=== PATIENT | female | born 1950 | race Caucasian/White ===

== ENCOUNTER 2017-09-11 19:59 | Emergency (ER) | payer OTHER ==
[2017-09-11] MEDS ORDERED: HYDROCODONE/APAP 5/325 MG TAB ONE (21:31)
--- NOTE | 2017-09-11 21:36 | RAD REPORT ---
EXAM DESCRIPTION: RAD - Foot Left 3 View - 09/11/2017 9:23 pm CLINICAL HISTORY: Pain and swelling. COMPARISON: None. FINDINGS: A large amount of soft tissue swelling is seen along the dorsum of the midfoot. Osteopenia is seen with no evidence of fracture or dislocation. Prominent calcaneal spurs are noted.
--- NOTE | 2017-09-11 21:51 | RAD REPORT ---
EXAM DESCRIPTION: RAD - Tib Fib Left - 09/11/2017 9:37 pm CLINICAL HISTORY: Pain and swelling. COMPARISON: None. FINDINGS: Focal soft tissue swelling is seen involving the inferior aspect of the left lung anterior to the tibia. No subcutaneous gas is seen. No fracture, dislocation or evidence of osteomyelitis. La rge calcaneal spurs are present.
[2017-09-11] MEDS ORDERED: LIDOCAINE 1% MPF 5 ML VIAL ONE (22:51)
[2017-09-11] MEDS ORDERED: CEFTRIAXONE 1000 MG/VIAL ONE (22:51)
--- NOTE | 2017-09-11 22:54 | EDPHYS ---
Physician Documentation [facility] Name: Lizeth Fowler Age: 66 yrs Sex: Female : 1950 Arrival Date: 09/11/2017 Time: 20:04 Bed 11 Private MD: ED Physician Al Shah HPI: 09/11 22:44 This 66 yrs old Unknown Female presents to ER via Wheelchair with complaints of Leg gs Pain. 22:44 The patient presents with cellulitis of the left doan. Description: The affected area gs is moderate sized, erythematous, warm. Onset: The symptoms/episode began/occurred 4 day(s) ago, started with redness tenderness mild swelling, had accident chair fell on leg and foot swelling anterior foot and lower leg with hematoma some bleeding now (mild). Associated signs and symptoms: Pertinent negatives: discharge, fever, shortness of breath. Severity of symptoms: At their worst the symptoms were moderate, in the emergency department the symptoms are unchanged. Historical: - Allergies: 20:23 No Known Allergies; fc - Home Meds: 20:41 Levemir subcutaneous subcutaneous 10 units every morning [Active]; aspirin 81 mg Oral aj1 chew 1 tab once daily [Active]; atorvastatin 40 mg oral tab 1 tab once daily [Active]; spironolactone 25 mg Oral tab 1 tab once daily [Active]; allopurinol 100 mg Oral tab 1 tab once daily [Active]; carvedilol 3.125 mg oral tab 1 tab 2 times per day [Active]; Eliquis 5 mg oral tab 1 tab 2 times per day [Active]; Isosorbide Mononitrate 15 mg Oral 0.5 tab 2 times per day [Active]; lisinopril 5 mg Oral tab 1 tab once daily [Active]; torsemide 20 mg oral tab 1 tab once daily [Active]; potassium chloride 10 mEq Oral cpER 1 cap once daily [Active]; - PMHx: 20:23 Diabetes - IDDM; Hypertension; Chronic pain; High Cholesterol; CHF; CAD; Gout; fc Arthritis; - PSHx: 20:23 pacemaker defib; Tonsillectomy; Adenoids; ; fc - Immunization history:: Last tetanus immunization: unknown. - Social history:: Smoking status: Patient/guardian denies using tobacco. ROS: 22:44 All other systems are negative. gs Exam: 22:44 ENT: Nares patent. No nasal discharge, no septal abnormalities noted. Tympanic gs membranes are normal and external auditory canals are clear. Oropharynx with no redness, swelling, or masses, exudates, or evidence of obstruction, uvula midline. Mucous membranes moist. Cardiovascular: Regular rate and rhythm with a normal S1 and S2. No gallops, murmurs, or rubs. Normal PMI, no JVD. No pulse deficits. Respiratory: Lungs have equal breath sounds bilaterally, clear to auscultation and percussion. No rales, rhonchi or wheezes noted. No increased work of breathing, no retractions or nasal flaring. Abdomen/GI: Soft, non-tender, with normal bowel sounds. No distension or tympany. No guarding or rebound. No evidence of tenderness throughout. Back: No spinal tenderness. No costovertebral tenderness. Full range of motion. Neuro: Awake and alert, GCS 15, oriented to person, place, time, and situation. Cranial nerves II-XII grossly intact. Motor strength 5/5 in all extremities. Sensory grossly intact. Cerebellar exam normal. Normal gait. 22:44 Constitutional: The patient appears alert, awake. 22:44 Musculoskeletal/extremity: Extremities: noted in the dorsum of left foot: swelling, no erythema, ROM: no acute changes, Circulation is intact in all extremities. the left doan 22:44 Skin: cellulitis, that is moderate, well demarcated, on the left doan, injury, hematoma anterior lower some skin breakdown and bloody drainage. Vital Signs: 20:18 BP 111 / 60; Pulse 88; Resp 18; Temp 98.4(O); Pulse Ox 95% on R/A; Weight 95.25 kg (R); fc Height 5 ft. 2 in. (157.48 cm) (R); Pain 10/10; 23:34 BP 111 / 49; Pulse 76; Resp 20 S; Temp 98.2(O); Pulse Ox 98% on R/A; Pain 5/10; bb 20:18 Body Mass Index 38.41 (95.25 kg, 157.48 cm) MDM: 20:56 Patient medically screened. 22:44 Differential diagnosis: cellulitis, fracture, hematoma. Data reviewed: vital signs, nurses notes. 09/11 20:58 Order name: Tib Fib Left XRAY; Complete Time: 22:15 09/11 20:58 Order name: Foot Left 3 View XRAY; Complete Time: 22:15 Administered Medications: 21:40 Drug: [place] 5 mg-325 mg 1 tabs Route: PO; aj1 23:34 Follow up: Response: Pain is decreased 23:10 Drug: Rocephin (cefTRIAXone) 1 grams Route: IM; Site: right gluteus; 23:34 Follow up: Response: No adverse reaction bb Disposition: 09/11/17 22:53 Discharged to Home. Impression: Cellulitis of left lower limb. - Condition is Stable. - Discharge Instructions: Cellulitis. - Prescriptions for Keflex 500 mg Oral Capsule - take 2 capsule by ORAL route every 12 hours for 7 days; 28 capsule. Tylenol- Codeine #4 300-60 mg Oral Tablet - take 1 tablet by ORAL route every 6 hours As needed; 10 tablet. - Medication Reconciliation Form, Thank You Letter, Antibiotic Education, Prescription Opioid Use form. - Follow up: Private Physician; When: 1 - 2 days; Reason: Re-evaluation by your physician. Signatures: Dispatcher [employer] Jolly Luis RN RN aj1 Giselle Huang RN RN fc Carri Burden RN RN Al Cody MD MD
--- NOTE | 2017-09-11 22:54 | ER ---
Nurse's Notes [facility] Name: Lizeth Fowler Age: 66 yrs Sex: Female : 1950 Arrival Date: 09/11/2017 Time: 20:04 Bed 11 Private MD: Diagnosis: Cellulitis of left lower limb Presentation: 09/11 20:16 Presenting complaint: Patient states: that ast she hit her left leg hit a chair. Not is has an open area and is draining fluid and blood. Transition of care: patient was not received from another setting of care. Onset of symptoms was September 06, 2017. Care prior to arrival: Bleeding of injury controlled. Injury dressed. 20:16 Method Of Arrival: Wheelchair 20:16 Acuity: DREW 3 fc Historical: - Allergies: 20:23 No Known Allergies; fc - Home Meds: 20:41 Levemir subcutaneous subcutaneous 10 units every morning [Active]; aspirin 81 mg Oral aj1 chew 1 tab once daily [Active]; atorvastatin 40 mg oral tab 1 tab once daily [Active]; spironolactone 25 mg Oral tab 1 tab once daily [Active]; allopurinol 100 mg Oral tab 1 tab once daily [Active]; carvedilol 3.125 mg oral tab 1 tab 2 times per day [Active]; Eliquis 5 mg oral tab 1 tab 2 times per day [Active]; Isosorbide Mononitrate 15 mg Oral 0.5 tab 2 times per day [Active]; lisinopril 5 mg Oral tab 1 tab once daily [Active]; torsemide 20 mg oral tab 1 tab once daily [Active]; potassium chloride 10 mEq Oral cpER 1 cap once daily [Active]; - PMHx: 20:23 Diabetes - IDDM; Hypertension; Chronic pain; High Cholesterol; CHF; CAD; Gout; fc Arthritis; - PSHx: 20:23 pacemaker defib; Tonsillectomy; Adenoids; ; fc - Immunization history:: Last tetanus immunization: unknown. - Social history:: Smoking status: Patient/guardian denies using tobacco. Screenin:01 Abuse screen: Denies threats or abuse. Denies injuries from another. Nutritional aj1 screening: No deficits noted. Tuberculosis screening: No symptoms or risk factors identified. 23:35 Fall Risk None identified. bb Assessment: 21:01 General: Appears in no apparent distress. uncomfortable, Behavior is calm, cooperative, aj1 appropriate for age. Pain: Complains of pain in left doan Pain does not radiate. Pain currently is 10 out of 10 on a pain scale. Quality of pain is described as sharp. Neuro: Level of Consciousness is awake, alert, obeys commands, Oriented to person, place, time, situation, Speech is normal, Facial symmetry appears normal. Cardiovascular: Patient's skin is warm and dry. Respiratory: Airway is patent Respiratory effort is even, unlabored, Respiratory pattern is regular, symmetrical. GI: No signs and/or symptoms were reported involving the gastrointestinal system. : No signs and/or symptoms were reported regarding the genitourinary system. EENT: No signs and/or symptoms were reported regarding the EENT system. Derm: right lower leg, ankle and foot are red hot and swollen. Wound noted to right doan, bleeding lightly. Musculoskeletal: Range of motion: limited in right ankle. 21:44 Reassessment: Patient appears in no apparent distress at this time. No changes from aj1 previously documented assessment. Patient and/or family updated on plan of care and expected duration. Pain level reassessed. Patient is alert, oriented x 3, equal unlabored respirations, skin warm/dry/pink. 22:05 Reassessment: Patient appears in no apparent distress at this time. No changes from aj1 previously documented assessment. Patient and/or family updated on plan of care and expected duration. Pain level reassessed. Patient is alert, oriented x 3, equal unlabored respirations, skin warm/dry/pink. 23:33 Reassessment: Patient is alert, oriented x 3, equal unlabored respirations, skin bb warm/dry/pink. pt states pain has improved now 5/10 verbalized understanding of and agrees to plan of care discharge instructions given, pt assisted to exit via wheelchair accompanied by family. Vital Signs: 20:18 BP 111 / 60; Pulse 88; Resp 18; Temp 98.4(O); Pulse Ox 95% on R/A; Weight 95.25 kg (R); fc Height 5 ft. 2 in. (157.48 cm) (R); Pain 10/10; 23:34 BP 111 / 49; Pulse 76; Resp 20 S; Temp 98.2(O); Pulse Ox 98% on R/A; Pain 5/10; bb 20:18 Body Mass Index 38.41 (95.25 kg, 157.48 cm) ED Course: 20:04 Patient arrived in ED. ds1 20:18 Triage completed. 20:18 Arm band placed on Patient placed in an exam room, on a stretcher. 20:28 Jolly Sharif, RN is Primary Nurse. aj1 20:49 Al Shah MD is Attending Physician. 21:01 Patient has correct armband on for positive identification. Call light in reach. aj1 21:01 No provider procedures requiring assistance completed. aj1 21:18 Tib Fib Left XRAY In Process Unspecified. EDMS 21:18 Foot Left 3 View XRAY In Process Unspecified. EDMS 21:27 X-ray completed. Portable x-ray completed in exam room. Patient tolerated procedure bb2 well. 23:35 Patient did not have IV access during this emergency room visit. bb Administered Medications: 21:40 Drug: [place] 5 mg-325 mg 1 tabs Route: PO; aj 23:34 Follow up: Response: Pain is decreased bb 23:10 Drug: Rocephin (cefTRIAXone) 1 grams Route: IM; Site: right gluteus; bb 23:34 Follow up: Response: No adverse reaction bb Outcome: 22:53 Discharge ordered by . 23:35 Discharged to home via wheelchair, with family. bb 23:35 Condition: stable 23:35 Discharge instructions given to patient, Instructed on discharge instructions, follow up and referral plans. medication usage, Demonstrated understanding of instructions, follow-up care, medications, Prescriptions given X 2. 23:35 Patient left the ED. bb Signatures: Dispatcher [employer] EDMS Jolly Sharif, RN ANA aj1 Giselle Huang RN RN Jimena Chandler ds1 aCrri Burden RN RN bb Al Shah MD MD Catherine Hewitt bb2
== END 2017-09-11 23:35 | disposition home or self-care (01) ==
LOC: ER 19:59
DX: L03.116 Cellulitis of left lower limb (principal); E11.9 Type 2 diabetes mellitus without complications; I10 Essential (primary) hypertension; M19.90 Unspecified osteoarthritis, unspecified site; E78.5 Hyperlipidemia, unspecified; I50.9 Heart failure, unspecified; I25.10 Atherosclerotic heart disease of native coronary artery without angina pectoris
CPT/HCPCS: 96372; 99283

== ENCOUNTER 2019-01-10 13:06 | Inpatient (IN) | payer OTHER ==
--- OUTSIDE RECORDS SUMMARY | 2019-01-10 13:09 | XMS REPORT ---
:1950 Author Organization [employer] Care Team Providers Name Role Phone Irwin Celso Provider Role Unavailable Allergies No Known Allergies Problems No Known Problems Medications Medication Code System Code Instructions Start Date End Date Status Dosage Eliquis [facility] 2001 79840846365 5 mg orally twice Jul 25, Active 1 tab(s) daily 2018 Results No Known Results Summary Purpose [employer] Submission
--- OUTSIDE RECORDS SUMMARY | 2019-01-10 13:09 | XMS REPORT | Continuity of Care Document ---
:1950 Author Organization [employer] Care Team Providers Name Role Phone [employer] Unavailable Unavailable Problems Problem Status Onset Classification Date Comments Source Date Reported Presence of Active Problem 01/22/2018 eCW: Heart automatic [facility] defibrillator Chronic systolic Active Diagnosis 01/22/2018 eCW: Heart heart failure [facility] Medications Medication Details Route Status Patient Ordering Order Source Instructions Provider Date Eliquis 1 tab(s) orally Active 5 mg orally [place] eCW: Heart twice daily 2017 [facility] allopurinol 1 tab(s) orally Active 100 mg orally 2 an eCW: Heart times a day [facility] carvedilol 1 tab(s) orally Active 3.125 mg orally an eCW: Heart 2 times a day [facility] Vitamin B-12 1 tab(s) orally Active 100 mcg orally eCW: Heart once a day [facility] aspirin 1 tab(s) orally Active 81 mg orally eCW: Heart once a day [facility] isosorbide 1 tab(s) orally Active 10 mg orally 2 an eCW: Heart mononitrate times a day [facility] lisinopril 1 tab(s) orally Active 5 mg orally an eCW: Heart once a day [facility] Prolia not subcutaneousl Active 60 mg/mL eCW: Heart defined y subcutaneously [facility] Klor-Con 1 tab(s) orally Active 10 mEq orally 2 eCW: Heart times a day [facility] Eliquis 1 tab(s) orally Active 5 orally twice an eCW: Heart daily [facility] atorvastatin 1 tab(s) orally Active 40 mg orally an eCW: Heart once a day [facility] spironolactone 1 tab(s) orally Active 25 mg orally 2 kian eCW: Heart times a day [facility] Allergies, Adverse Reactions, Alerts Substance Category Reaction Severity Reaction Status Date Comments Source type Reported N.K.D.A. Adverse Info Not Adverse Active eCW: Heart Reaction Available Reaction 8 [facility] Immunizations No Data Provided for This Section Results No Data Provided for This Section Pathology Reports No Data Provided for This Section Diagnostic Reports No Data Provided for This Section Consultation Notes No Data Provided for This Section Discharge Summaries No Data Provided for This Section History and Physicals No Data Provided for This Section Vital Signs No Data Provided for This Section Encounters No Data Provided for This Section Procedures No Data Provided for This Section Assessment and Plan No Data Provided for This Section Plan of Care No Data Provided for This Section Social History No Data Provided for This Section Family History No Data Provided for This Section Advance Directives No Data Provided for This Section Functional Status No Data Provided for This Section
--- OUTSIDE RECORDS SUMMARY | 2019-01-10 13:09 | XMS REPORT ---
:1950 Author Organization [employer] Care Team Providers Name Role Phone Tonyazitasd Celso Provider Role Unavailable Allergies, Adverse Reactions, Alerts Substance Reaction Event Type N.K.D.A. Info Not Available Non Drug Allergy Problems Problem Type Condition Code Onset Dates Condition Status Problem Presence of automatic (implantable) Z95.810 Active cardiac defibrillator Assessment Chronic systolic (congestive) heart I50.22 Active failure Problem Chronic systolic (congestive) heart I50.22 Active failure Assessment Presence of automatic (implantable) Z95.810 Active cardiac defibrillator Medications Medication Code Code Instructions Start End Status Dosage System Date Date allopurinol [facility] 60812515781 100 mg orally 2 Active 1 tab(s) times a day carvedilol [facility] 72421742177 3.125 mg orally 2 Active 1 tab(s) times a day Vitamin B-12 [facility] 25505057619 100 mcg orally Active 1 tab(s) once a day Eliquis [facility] 21742829528 5 mg orally twice Jul 25, Active 1 tab(s) daily 2017 aspirin [facility] 92085419348 81 mg orally once Active 1 tab(s) a day isosorbide [facility] 64913958640 10 mg orally 2 Active 1 tab(s) mononitrate times a day lisinopril [facility] 25988380173 5 mg orally once Active 1 tab(s) a day Prolia [facility] 47638250507 60 mg/mL Active not subcutaneously defined every 6 months Klor-Con [facility] 41212991242 10 mEq orally 2 Active 1 tab(s) times a day Eliquis [facility] 75642583070 5 orally twice Active 1 tab(s) daily atorvastatin [facility] 03901232622 40 mg orally once Active 1 tab(s) a day spironolactone [facility] 57798110827 25 mg orally 2 Active 1 tab(s) times a day Results No Known Results Summary Purpose [employer]ClinicalWorks Submission
--- OUTSIDE RECORDS SUMMARY | 2019-01-10 13:11 | XMS REPORT ---
:1950 Author Organization [facility] Address [address] [place] [address] Care Team Providers Name Role Phone TRENTON RODAS Primary Care Provider Unavailable TIP WASHINGTON Unavailable Unavailable Problems This patient has no known problems. Allergies, Adverse Reactions, Alerts This patient has no known allergies or adverse reactions. Medications This patient has no known medications. Encounters Start End Encounter Admission Attending Care Care Encounter Date/Time Date/Time Type Type Clinicians Facility Department ID 2017-09-18 Inpatient E [facility] [id number] 12:45:00 Results Test Description Test Time Test Comments Text Results Atomic Results Result Comments Culture, Wound Nonsurgical 2017-10-06 07:47:00 Specimen: LegCollected: 08:30 Status: Final Last Updated: 10/06/2017 07:47 (1) left leg wound at wound vac dressing change. Gram Stain (Final) (Final) 10/02/17 No organsims seen, No WBC's seen Culture Result (Final) (Final) 10/02/17 No growth 24 hours 10/03/17 No growth 48 hours 10/04/17 No growth 3 days 10/05/17 No growth 4 days 10/06/17 No growth 5 days 10/06/17 Anaerobic culture:No anaerobes isolated at 5 days Basic Metabolic Panel 2017-10-03 07:56:32 Test Item Value Reference Range Comments Sodium Level (test code=Sodium Level) 137.0 mmol/L 135.0-145.0 Potassium Level (test code=Potassium Level) 4.8 mmol/L 3.5-5.1 Chloride Level (test code=Chloride Level) 98 mmol/L 98-105 CO2 (test code=CO2) 31 mmol/L 22-29 Anion Gap (test code=Anion Gap) 8 mmol/L 7-16 BUN (test code=BUN) 46.50 mg/dL 8.00-23.00 Creatinine Level (test code=Creatinine Level) 1.50 mg/dL 0.50-0.90 BUN/Creat Ratio (test code=BUN/Creat Ratio) 31 Glucose Level (test code=Glucose Level) 152 mg/dL 70-115 Calcium Level (test code=Calcium Level) 8.3 mg/dL 8.3-10.5 Basic Metabolic [id number] 07:56:32 Test Item Value Reference Range Comments Sodium Level (test 137.0 mmol/L 135.0-145.0 code=Sodium Level) Potassium Level (test 4.8 mmol/L 3.5-5.1 code=Potassium Level) Chloride Level (test 98 mmol/L 98-105 code=Chloride Level) CO2 (test code=CO2) 31 mmol/L 22-29 Anion Gap (test 8 mmol/L 7-16 code=Anion Gap) BUN (test code=BUN) 46.50 mg/dL 8.00-23.00 Creatinine Level (test 1.50 mg/dL 0.50-0.90 code=Creatinine Level) BUN/Creat Ratio (test 31 code=BUN/Creat Ratio) Glucose Level (test 152 mg/dL 70-115 code=Glucose Level) Calcium Level (test 8.3 mg/dL 8.3-10.5 code=Calcium Level) eGFR AA (test code=eGFR 42 mL/min/1.73 m2 eGFR (estimated AA) Glomerular Filtration Rate) is an estimated value, calculated from the patient's serum creatinine using the MDRD equation. It is NOT the patient's actual GFR. The eGFR provides a more clinically useful measure of kidney disease than serum creatinine alone.This calculation takes sex and race into account, if the information is provided. If the race is not provided, and the patient is -[place], multiply by 1.212. If sex is not provided, and the patient is female, multiply by 0.742. Results for patients <18 years of age have not been validated by the MDRD study and should be interpreted with caution. eGFR Result Interpretation:eGFR > or=60 is in the Normal RangeeGFR < 60 may mean kidney diseaseeGFR < 15 may mean kidney failure Ranges recommended by the National Kidney Foundation, http://nkdep.nih.gov eGFR Non-AA (test 34.64 mL/min/1.73 eGFR (estimated code=eGFR Non-AA) m2 Glomerular Filtration Rate) is an estimated value, calculated from the patient's serum creatinine using the MDRD equation. It is NOT the patient's actual GFR. The eGFR provides a more clinically useful measure of kidney disease than serum creatinine alone.This calculation takes sex and race into account, if the information is provided. If the race is not provided, and the patient is -[place], multiply by 1.212. If sex is not provided, and the patient is female, multiply by 0.742. Results for patients <18 years of age have not been validated by the MDRD study and should be interpreted with caution. eGFR Result Interpretation:eGFR > or=60 is in the Normal RangeeGFR < 60 may mean kidney diseaseeGFR < 15 may mean kidney failure Ranges recommended by the National Kidney Foundation, http://nkdep.nih.gov Basic Metabolic [id number] 07:56:32 Test Item Value Reference Range Comments Sodium Level (test 137.0 mmol/L 135.0-145.0 code=Sodium Level) Potassium Level (test 4.8 mmol/L 3.5-5.1 code=Potassium Level) Chloride Level (test 98 mmol/L 98-105 code=Chloride Level) CO2 (test code=CO2) 31 mmol/L 22-29 Anion Gap (test 8 mmol/L 7-16 code=Anion Gap) BUN (test code=BUN) 46.50 mg/dL 8.00-23.00 Creatinine Level (test 1.50 mg/dL 0.50-0.90 code=Creatinine Level) BUN/Creat Ratio (test 31 code=BUN/Creat Ratio) Glucose Level (test 152 mg/dL 70-115 code=Glucose Level) Calcium Level (test 8.3 mg/dL 8.3-10.5 code=Calcium Level) eGFR AA (test code=eGFR 42 mL/min/1.73 m2 eGFR (estimated AA) Glomerular Filtration Rate) is an estimated value, calculated from the patient's serum creatinine using the MDRD equation. It is NOT the patient's actual GFR. The eGFR provides a more clinically useful measure of kidney disease than serum creatinine alone.This calculation takes sex and race into account, if the information is provided. If the race is not provided, and the patient is -[place], multiply by 1.212. If sex is not provided, and the patient is female, multiply by 0.742. Results for patients <18 years of age have not been validated by the MDRD study and should be interpreted with caution. eGFR Result Interpretation:eGFR > or=60 is in the Normal RangeeGFR < 60 may mean kidney diseaseeGFR < 15 may mean kidney failure Ranges recommended by the National Kidney Foundation, http://nkdep.nih.gov eGFR Non-AA (test 34.64 mL/min/1.73 eGFR (estimated code=eGFR Non-AA) m2 Glomerular Filtration Rate) is an estimated value, calculated from the patient's serum creatinine using the MDRD equation. It is NOT the patient's actual GFR. The eGFR provides a more clinically useful measure of kidney disease than serum creatinine alone.This calculation takes sex and race into account, if the information is provided. If the race is not provided, and the patient is -[place], multiply by 1.212. If sex is not provided, and the patient is female, multiply by 0.742. Results for patients <18 years of age have not been validated by the MDRD study and should be interpreted with caution. eGFR Result Interpretation:eGFR > or=60 is in the Normal RangeeGFR < 60 may mean kidney diseaseeGFR < 15 may mean kidney failure Ranges recommended by the National Kidney Foundation, http://nkdep.nih.gov Basic Metabolic [id number] 16:45:00 Test Item Value Reference Range Comments Sodium Level (test 140.0 mmol/L 135.0-145.0 code=Sodium Level) Potassium Level (test 5.2 mmol/L 3.5-5.1 code=Potassium Level) Chloride Level (test 100 mmol/L 98-105 code=Chloride Level) CO2 (test code=CO2) 29 mmol/L 22-29 Anion Gap (test 11 mmol/L 7-16 code=Anion Gap) BUN (test code=BUN) 46.90 mg/dL 8.00-23.00 Creatinine Level (test 1.50 mg/dL 0.50-0.90 code=Creatinine Level) BUN/Creat Ratio (test 31 code=BUN/Creat Ratio) Glucose Level (test 171 mg/dL 70-115 code=Glucose Level) Calcium Level (test 8.4 mg/dL 8.3-10.5 code=Calcium Level) eGFR AA (test code=eGFR 42 mL/min/1.73 m2 eGFR (estimated AA) Glomerular Filtration Rate) is an estimated value, calculated from the patient's serum creatinine using the MDRD equation. It is NOT the patient's actual GFR. The eGFR provides a more clinically useful measure of kidney disease than serum creatinine alone.This calculation takes sex and race into account, if the information is provided. If the race is not provided, and the patient is -[place], multiply by 1.212. If sex is not provided, and the patient is female, multiply by 0.742. Results for patients <18 years of age have not been validated by the MDRD study and should be interpreted with caution. eGFR Result Interpretation:eGFR > or=60 is in the Normal RangeeGFR < 60 may mean kidney diseaseeGFR < 15 may mean kidney failure Ranges recommended by the National Kidney Foundation, http://nkdep.nih.gov eGFR Non-AA (test 34.64 mL/min/1.73 eGFR (estimated code=eGFR Non-AA) m2 Glomerular Filtration Rate) is an estimated value, calculated from the patient's serum creatinine using the MDRD equation. It is NOT the patient's actual GFR. The eGFR provides a more clinically useful measure of kidney disease than serum creatinine alone.This calculation takes sex and race into account, if the information is provided. If the race is not provided, and the patient is -[place], multiply by 1.212. If sex is not provided, and the patient is female, multiply by 0.742. Results for patients <18 years of age have not been validated by the MDRD study and should be interpreted with caution. eGFR Result Interpretation:eGFR > or=60 is in the Normal RangeeGFR < 60 may mean kidney diseaseeGFR < 15 may mean kidney failure Ranges recommended by the National Kidney Foundation, http://nkdep.nih.gov Basic Metabolic [id number] 16:45:00 Test Item Value Reference Range Comments Sodium Level (test 140.0 mmol/L 135.0-145.0 code=Sodium Level) Potassium Level (test 5.2 mmol/L 3.5-5.1 code=Potassium Level) Chloride Level (test 100 mmol/L 98-105 code=Chloride Level) CO2 (test code=CO2) 29 mmol/L 22-29 Anion Gap (test 11 mmol/L 7-16 code=Anion Gap) BUN (test code=BUN) 46.90 mg/dL 8.00-23.00 Creatinine Level (test 1.50 mg/dL 0.50-0.90 code=Creatinine Level) BUN/Creat Ratio (test 31 code=BUN/Creat Ratio) Glucose Level (test 171 mg/dL 70-115 code=Glucose Level) Calcium Level (test 8.4 mg/dL 8.3-10.5 code=Calcium Level) eGFR AA (test code=eGFR 42 mL/min/1.73 m2 eGFR (estimated AA) Glomerular Filtration Rate) is an estimated value, calculated from the patient's serum creatinine using the MDRD equation. It is NOT the patient's actual GFR. The eGFR provides a more clinically useful measure of kidney disease than serum creatinine alone.This calculation takes sex and race into account, if the information is provided. If the race is not provided, and the patient is -[place], multiply by 1.212. If sex is not provided, and the patient is female, multiply by 0.742. Results for patients <18 years of age have not been validated by the MDRD study and should be interpreted with caution. eGFR Result Interpretation:eGFR > or=60 is in the Normal RangeeGFR < 60 may mean kidney diseaseeGFR < 15 may mean kidney failure Ranges recommended by the National Kidney Foundation, http://nkdep.nih.gov eGFR Non-AA (test 34.64 mL/min/1.73 eGFR (estimated code=eGFR Non-AA) m2 Glomerular Filtration Rate) is an estimated value, calculated from the patient's serum creatinine using the MDRD equation. It is NOT the patient's actual GFR. The eGFR provides a more clinically useful measure of kidney disease than serum creatinine alone.This calculation takes sex and race into account, if the information is provided. If the race is not provided, and the patient is -[place], multiply by 1.212. If sex is not provided, and the patient is female, multiply by 0.742. Results for patients <18 years of age have not been validated by the MDRD study and should be interpreted with caution. eGFR Result Interpretation:eGFR > or=60 is in the Normal RangeeGFR < 60 may mean kidney diseaseeGFR < 15 may mean kidney failure Ranges recommended by the National Kidney Foundation, http://nkdep.nih.gov Basic Metabolic [id number] 16:45:00 Test Item Value Reference Range Comments Sodium Level (test 140.0 mmol/L 135.0-145.0 code=Sodium Level) Potassium Level (test 5.2 mmol/L 3.5-5.1 code=Potassium Level) Chloride Level (test 100 mmol/L 98-105 code=Chloride Level) CO2 (test code=CO2) 29 mmol/L 22-29 Anion Gap (test 11 mmol/L 7-16 code=Anion Gap) BUN (test code=BUN) 46.90 mg/dL 8.00-23.00 Creatinine Level (test 1.50 mg/dL 0.50-0.90 code=Creatinine Level) BUN/Creat Ratio (test 31 code=BUN/Creat Ratio) Glucose Level (test 171 mg/dL 70-115 code=Glucose Level) Calcium Level (test 8.4 mg/dL 8.3-10.5 code=Calcium Level) eGFR AA (test code=eGFR 42 mL/min/1.73 m2 eGFR (estimated AA) Glomerular Filtration Rate) is an estimated value, calculated from the patient's serum creatinine using the MDRD equation. It is NOT the patient's actual GFR. The eGFR provides a more clinically useful measure of kidney disease than serum creatinine alone.This calculation takes sex and race into account, if the information is provided. If the race is not provided, and the patient is -[place], multiply by 1.212. If sex is not provided, and the patient is female, multiply by 0.742. Results for patients <18 years of age have not been validated by the MDRD study and should be interpreted with caution. eGFR Result Interpretation:eGFR > or=60 is in the Normal RangeeGFR < 60 may mean kidney diseaseeGFR < 15 may mean kidney failure Ranges recommended by the National Kidney Foundation, http://nkdep.nih.gov eGFR Non-AA (test 34.64 mL/min/1.73 eGFR (estimated code=eGFR Non-AA) m2 Glomerular Filtration Rate) is an estimated value, calculated from the patient's serum creatinine using the MDRD equation. It is NOT the patient's actual GFR. The eGFR provides a more clinically useful measure of kidney disease than serum creatinine alone.This calculation takes sex and race into account, if the information is provided. If the race is not provided, and the patient is -[place], multiply by 1.212. If sex is not provided, and the patient is female, multiply by 0.742. Results for patients <18 years of age have not been validated by the MDRD study and should be interpreted with caution. eGFR Result Interpretation:eGFR > or=60 is in the Normal RangeeGFR < 60 may mean kidney diseaseeGFR < 15 may mean kidney failure Ranges recommended by the National Kidney Foundation, http://nkdep.nih.gov Pro B Natriuretic [id number] 16:45:00 Test Item Value Reference Range Comments NT-proBNP (test code=NT-proBNP) 5192 pg/mL 0-124 Vancomycin, [id number] 20:54:00 Test Item Value Reference Range Comments Teodoro Gutierrez (test code=VANTR) 11.1 ug/mL 10.0-20.0 POC Glucose, [id number] 17:38:00 Test Item Value Reference Range Comments POC Glucose (test 177 mg/dL 70-115 If you consider your patient code=POCGLUC) critically ill, the Elisa Accu-Chek InformII metershould not be used for Glucose determinations.Draw a venous Glucose and send to the Main Lab for Analysis. POC Glucose, [id number] 11:33:00 Test Item Value Reference Range Comments POC Glucose (test 187 mg/dL 70-115 If you consider your patient code=POCGLUC) critically ill, the Elisa Accu-Chek InformII metershould not be used for Glucose determinations.Draw a venous Glucose and send to the Main Lab for Analysis. POC Glucose, [id number] 07:24:00 Test Item Value Reference Range Comments POC Glucose (test 116 mg/dL 70-115 If you consider your patient code=POCGLUC) critically ill, the Elisa Accu-Chek InformII metershould not be used for Glucose determinations.Draw a venous Glucose and send to the Main Lab for Analysis. POC Glucose, [id number] 20:48:00 Test Item Value Reference Range Comments POC Glucose (test 167 mg/dL 70-115 Notify RN or MDIf you consider code=POCGLUC) your patient critically ill, the Elisa Accu-Chek InformII metershould not be used for Glucose determinations.Draw a venous Glucose and send to the Main Lab for Analysis. POC Glucose, [id number] 17:09:00 Test Item Value Reference Range Comments POC Glucose (test 112 mg/dL 70-115 Notify RN or MDIf you consider code=POCGLUC) your patient critically ill, the Elisa Accu-Chek InformII metershould not be used for Glucose determinations.Draw a venous Glucose and send to the Main Lab for Analysis. POC Glucose, [id number] 11:12:00 Test Item Value Reference Range Comments POC Glucose (test 135 mg/dL 70-115 If you consider your patient code=POCGLUC) critically ill, the Elisa Accu-Chek InformII metershould not be used for Glucose determinations.Draw a venous Glucose and send to the Main Lab for Analysis. Comprehensive Metabolic [id number] 07:43:00 Test Item Value Reference Range Comments Sodium (test code=NA) 136 mmol/L 135-145 Potassium (test code=K) 5.6 mmol/L 3.5-5.1 Chloride (test code=CL) 97 mmol/L 98-105 Carbon Dioxide (test 29 mmol/L 22-29 code=CO2) Glucose (test code=GLU) 112 mg/dL 70-115 Blood Urea Nitrogen (test 38 mg/dL 8-23 code=BUN) Creatinine (test 1.1 mg/dL 0.5-0.9 code=CREAT) Calcium (test code=CA) 8.6 mg/dL 8.3-10.5 Prot Total (test code=TP) 6.3 g/dL 6.4-8.3 Albumin (test code=ALB) 3.6 g/dL 3.5-5.2 A/G Ratio (test 1.3 Ratio code=AGRATIO) Globulin (test code=GLOB) 2.7 2.9-3.1 Bili Total (test 0.7 mg/dL 0.1-0.9 code=TBIL) Alk Phos (test 46 U/L 35-104 code=APHOS) AST (test code=AST) 14 U/L 1-32 ALT (test code=ALT) 11 U/L 1-33 BUN/Creatinine Ratio 34.5 (test code=BCRATIO) Anion Gap (test 10 mmol/L 7-16 code=AGAP) Estimated GFR (test 53 mL/min/1.73m2 eGFR (estimated Glomerular code=GFR) Filtration Rate) is an estimated value,calculated from the patient's serum creatinine using the MDRD equation.It is NOT the patient's actual GFR. The eGFR provides a more clinicallyuseful measure of kidney disease than serum creatinine alone.This calculation takes sex and race into account, if the informationis provided. If the race is not provided, and the patient isAfrican-[place], multiply by 1.212. If sex is not provided, and thepatient is female, multiply by 0.742. Results for patients <18 years ofage have not been validated by the MDRD study and should be interpretedwith caution.eGFR Result Interpretation:eGFR > or=60 is in the Normal RangeeGFR < 60 may mean kidney diseaseeGFR < 15 may mean kidney failureRanges recommended by the National Kidney Foundation,http://nkdep.nih .gov CBC with [id number] 07:30:00 Test Item Value Reference Range Comments WBC (test code=WBC) 8.5 K/cumm 4.4-10.5 RBC (test code=RBC) 4.20 M/cumm 3.75-5.20 Hemoglobin (test code=HGB) 12.2 gm/dL 12.2-14.8 Hematocrit (test code=HCT) 41.0 % 36.5-44.4 MCV (test code=MCV) 97.4 fL 80-100 MCH (test code=MCH) 29.1 pg 27.0-32.5 MCHC (test code=MCHC) 29.9 g/dL 32.0-37.5 RDW (test code=RDW) 15.6 % 11.5-14.5 Platelet Count (test code=PLTCT) 194 K/cumm 140-440 MPV (test code=MPV) 11.4 fL Diff Method (test code=DIFFM) Auto Neutrophil (test code=NEUT) 79.2 % 36-70 Lymphocyte (test code=LYMPH) 10.0 % 12-44 Monocyte (test code=MONO) 8.7 % 0-11 Eosinophil (test code=EOS) 1.6 % 0-7 Basophil (test code=BASO) 0.5 % 0-2 Neutro Abs (test code=ANEUT) 6.7 K/cumm 1.6-7.4 Lymph Abs (test code=ALYMPH) 0.9 K/cumm 0.5-4.6 [place] Abs (test code=AMONO) 0.7 K/cumm 0.0-1.2 Eos Abs (test code=AEOS) 0.14 K/cumm 0.00-0.74 Baso Abs (test code=ABASO) 0.0 K/cumm 0.00-0.21 Hypochromic (test code=HYPO) Slight POC Glucose, [id number] 07:07:00 Test Item Value Reference Range Comments POC Glucose (test 101 mg/dL 70-115 Notify RN or MDIf you consider code=POCGLUC) your patient critically ill, the Elisa Accu-Chek InformII metershould not be used for Glucose determinations.Draw a venous Glucose and send to the Main Lab for Analysis. POC Glucose, [id number] 20:58:00 Test Item Value Reference Range Comments POC Glucose (test 161 mg/dL 70-115 Notify RN or MDIf you consider code=POCGLUC) your patient critically ill, the Elisa Accu-Chek InformII metershould not be used for Glucose determinations.Draw a venous Glucose and send to the Main Lab for Analysis. XR CHEST 1 [id number] 18:34:58LOCATION: [id number] 1 VIEWINDICATION: CHFCOMPARISON: Chest radiograph from 09/27/2017FINDINGS:Moderate cardiomegaly is redemonstrated. Triple lead AICD seen. There ismoderate central pulmonary vascular congestion. Moderate left and smallright pleural effusions with bibasilar atelectasis or infiltratepersist. Right arm PICC tip is in the distal SVC.IMPRESSION:1. Cardiomegaly with moderate central vascular congestion.2. Bilateral pleural effusions, left greater than right persists.POC Glucose, [id number] 17:30:00 Test Item Value Reference Range Comments POC Glucose (test 109 mg/dL 70-115 Notify RN or MDIf you consider code=POCGLUC) your patient critically ill, the Elisa Accu-Chek InformII metershould not be used for Glucose determinations.Draw a venous Glucose and send to the Main Lab for Analysis. POC Glucose, [id number] 11:19:00 Test Item Value Reference Range Comments POC Glucose (test 193 mg/dL 70-115 If you consider your patient code=POCGLUC) critically ill, the Elisa Accu-Chek InformII metershould not be used for Glucose determinations.Draw a venous Glucose and send to the Main Lab for Analysis. Basic Metabolic [id number] 07:27:00 Test Item Value Reference Range Comments Sodium (test code=NA) 137 mmol/L 135-145 Potassium (test code=K) 5.1 mmol/L 3.5-5.1 Chloride (test code=CL) 98 mmol/L 98-105 Carbon Dioxide (test 29 mmol/L 22-29 code=CO2) Glucose (test code=GLU) 132 mg/dL 70-115 Blood Urea Nitrogen (test 46 mg/dL 8-23 code=BUN) Creatinine (test 1.4 mg/dL 0.5-0.9 code=CREAT) Calcium (test code=CA) 8.3 mg/dL 8.3-10.5 BUN/Creatinine Ratio 32.9 (test code=BCRATIO) Anion Gap (test 10 mmol/L 7-16 code=AGAP) Estimated GFR (test 40 mL/min/1.73m2 eGFR (estimated Glomerular code=GFR) Filtration Rate) is an estimated value,calculated from the patient's serum creatinine using the MDRD equation.It is NOT the patient's actual GFR. The eGFR provides a more clinicallyuseful measure of kidney disease than serum creatinine alone.This calculation takes sex and race into account, if the informationis provided. If the race is not provided, and the patient isAfrican-[place], multiply by 1.212. If sex is not provided, and thepatient is female, multiply by 0.742. Results for patients <18 years ofage have not been validated by the MDRD study and should be interpretedwith caution.eGFR Result Interpretation:eGFR > or=60 is in the Normal RangeeGFR < 60 may mean kidney diseaseeGFR < 15 may mean kidney failureRanges recommended by the National Kidney Foundation,http://nkdep.nih .gov [id number] 07:26:00 Test Item Value Reference Range Comments NT ProBnp (test code=PBNP) 4213 pg/mL 0-124 POC Glucose, [id number] 07:01:00 Test Item Value Reference Range Comments POC Glucose (test 135 mg/dL 70-115 Notify RN or MDIf you consider code=POCGLUC) your patient critically ill, the Elisa Accu-Chek InformII metershould not be used for Glucose determinations.Draw a venous Glucose and send to the Main Lab for Analysis. POC Glucose, [id number] 20:56:00 Test Item Value Reference Range Comments POC Glucose (test 182 mg/dL 70-115 If you consider your patient code=POCGLUC) critically ill, the Elisa Accu-Chek InformII metershould not be used for Glucose determinations.Draw a venous Glucose and send to the Main Lab for Analysis. POC Glucose, [id number] 17:39:00 Test Item Value Reference Range Comments POC Glucose (test 102 mg/dL 70-115 If you consider your patient code=POCGLUC) critically ill, the Elisa Accu-Chek InformII metershould not be used for Glucose determinations.Draw a venous Glucose and send to the Main Lab for Analysis. POC Glucose, [id number] 10:53:00 Test Item Value Reference Range Comments POC Glucose (test 164 mg/dL 70-115 Notify RN or MDIf you consider code=POCGLUC) your patient critically ill, the Elisa Accu-Chek InformII metershould not be used for Glucose determinations.Draw a venous Glucose and send to the Main Lab for Analysis. CBC with [id number] 07:18:00 Test Item Value Reference Range Comments WBC (test code=WBC) 7.3 K/cumm 4.4-10.5 RBC (test code=RBC) 3.95 M/cumm 3.75-5.20 Hemoglobin (test code=HGB) 12.0 gm/dL 12.2-14.8 Hematocrit (test code=HCT) 37.3 % 36.5-44.4 MCV (test code=MCV) 94.4 fL 80-100 MCH (test code=MCH) 30.3 pg 27.0-32.5 MCHC (test code=MCHC) 32.1 g/dL 32.0-37.5 RDW (test code=RDW) 15.1 % 11.5-14.5 Platelet Count (test code=PLTCT) 195 K/cumm 140-440 MPV (test code=MPV) 9.1 fL Diff Method (test code=DIFFM) Auto Neutrophil (test code=NEUT) 79.8 % 36-70 Lymphocyte (test code=LYMPH) 9.4 % 12-44 Monocyte (test code=MONO) 9.2 % 0-11 Eosinophil (test code=EOS) 1.3 % 0-7 Basophil (test code=BASO) 0.3 % 0-2 Neutro Abs (test code=ANEUT) 5.8 K/cumm 1.6-7.4 Lymph Abs (test code=ALYMPH) 0.7 K/cumm 0.5-4.6 [place] Abs (test code=AMONO) 0.7 K/cumm 0.0-1.2 Eos Abs (test code=AEOS) 0.09 K/cumm 0.00-0.74 Baso Abs (test code=ABASO) 0.0 K/cumm 0.00-0.21 Hypochromic (test code=HYPO) Slight Basic Metabolic [id number] 07:05:00 Test Item Value Reference Range Comments Sodium (test code=NA) 136 mmol/L 135-145 Potassium (test code=K) 4.9 mmol/L 3.5-5.1 Chloride (test code=CL) 95 mmol/L 98-105 Carbon Dioxide (test 29 mmol/L 22-29 code=CO2) Glucose (test code=GLU) 145 mg/dL 70-115 Blood Urea Nitrogen (test 60 mg/dL 8-23 code=BUN) Creatinine (test 1.6 mg/dL 0.5-0.9 code=CREAT) Calcium (test code=CA) 8.3 mg/dL 8.3-10.5 BUN/Creatinine Ratio 37.5 (test code=BCRATIO) Anion Gap (test 12 mmol/L 7-16 code=AGAP) Estimated GFR (test 34 mL/min/1.73m2 eGFR (estimated Glomerular code=GFR) Filtration Rate) is an estimated value,calculated from the patient's serum creatinine using the MDRD equation.It is NOT the patient's actual GFR. The eGFR provides a more clinicallyuseful measure of kidney disease than serum creatinine alone.This calculation takes sex and race into account, if the informationis provided. If the race is not provided, and the patient isAfrican-Pu[place]ican, multiply by 1.212. If sex is not provided, and thepatient is female, multiply by 0.742. Results for patients <18 years ofage have not been validated by the MDRD study and should be interpretedwith caution.eGFR Result Interpretation:eGFR > or=60 is in the Normal RangeeGFR < 60 may mean kidney diseaseeGFR < 15 may mean kidney failureRanges recommended by the National Kidney Foundation,http://nkdep.nih .gov Magnesium, [id number] 07:05:00 Test Item Value Reference Range Comments Magnesium (test code=MG) 2.5 mg/dL 1.7-2.5 [id number] 07:05:00 Test Item Value Reference Range Comments Phosphorus (test code=PO4) 3.6 mg/dL 2.70-4.50 POC Glucose, [id number] 07:04:00 Test Item Value Reference Range Comments POC Glucose (test 142 mg/dL 70-115 Notify RN or MDIf you consider code=POCGLUC) your patient critically ill, the Elisa Accu-Chek InformII metershould not be used for Glucose determinations.Draw a venous Glucose and send to the Main Lab for Analysis. XR CHEST 1 [id number] 22:02:20Portable chest one view.HISTORY: Shortness of breathLocation R 16COMMENT: Comparison chest 2 views/. Left subclavian AICD.Cardiomegaly. Bilateral pleural effusions, greater on the left.Pulmonary vascular congestion. Right brachial PICC line tip projectsover the superior vena cava. Thoracic spondylosis.IMPRESSION: 1.Cardiomegaly. Congestive failure with bilateral pleural effusions,greater on the left. No change since prior exam.2. Right brachial PICC line tip projects over the superior vena cava.POC Glucose, [id number] 20:43:00 Test Item Value Reference Range Comments POC Glucose (test 113 mg/dL 70-115 If you consider your patient code=POCGLUC) critically ill, the Elisa Accu-Chek InformII metershould not be used for Glucose determinations.Draw a venous Glucose and send to the Main Lab for Analysis. POC Glucose, [id number] 16:26:00 Test Item Value Reference Range Comments POC Glucose (test 171 mg/dL 70-115 If you consider your patient code=POCGLUC) critically ill, the Elisa Accu-Chek InformII metershould not be used for Glucose determinations.Draw a venous Glucose and send to the Main Lab for Analysis. POC Glucose, [id number] 10:54:00 Test Item Value Reference Range Comments POC Glucose (test 156 mg/dL 70-115 If you consider your patient code=POCGLUC) critically ill, the Elisa Accu-Chek InformII metershould not be used for Glucose determinations.Draw a venous Glucose and send to the Main Lab for Analysis. POC Glucose, [id number] 07:04:00 Test Item Value Reference Range Comments POC Glucose (test 140 mg/dL 70-115 If you consider your patient code=POCGLUC) critically ill, the Elisa Accu-Chek InformII metershould not be used for Glucose determinations.Draw a venous Glucose and send to the Main Lab for Analysis. POC Glucose, [id number] 20:57:00 Test Item Value Reference Range Comments POC Glucose (test 190 mg/dL 70-115 If you consider your patient code=POCGLUC) critically ill, the Elisa Accu-Chek InformII metershould not be used for Glucose determinations.Draw a venous Glucose and send to the Main Lab for Analysis. POC Glucose, [id number] 16:25:00 Test Item Value Reference Range Comments POC Glucose (test 133 mg/dL 70-115 If you consider your patient code=POCGLUC) critically ill, the Elisa Accu-Chek InformII metershould not be used for Glucose determinations.Draw a venous Glucose and send to the Main Lab for Analysis. POC Glucose, [id number] 11:22:00 Test Item Value Reference Range Comments POC Glucose (test 178 mg/dL 70-115 If you consider your patient code=POCGLUC) critically ill, the Elisa Accu-Chek InformII metershould not be used for Glucose determinations.Draw a venous Glucose and send to the Main Lab for Analysis. Glycosylated [id number] 08:10:00 Test Item Value Reference Range Comments HBA1c (test code=HBA1C) 8.3 % 4.8-5.9 Sed Rate ESR ([place])2017-09-26 08:09:00 Test Item Value Reference Range Comments ESR (test code=HESR) 57 mm/Hr 0-20 POC Glucose, [id number] 07:19:00 Test Item Value Reference Range Comments POC Glucose (test 135 mg/dL 70-115 If you consider your patient code=POCGLUC) critically ill, the Elisa Accu-Chek InformII metershould not be used for Glucose determinations.Draw a venous Glucose and send to the Main Lab for Analysis. [id number] 07:17:00 Test Item Value Reference Range Comments Phosphorus (test code=PO4) 4.5 mg/dL 2.70-4.50 Magnesium, [id number] 07:17:00 Test Item Value Reference Range Comments Magnesium (test code=MG) 2.6 mg/dL 1.7-2.5 Basic Metabolic [id number] 07:17:00 Test Item Value Reference Range Comments Sodium (test code=NA) 135 mmol/L 135-145 Potassium (test code=K) 5.4 mmol/L 3.5-5.1 Chloride (test code=CL) 94 mmol/L 98-105 Carbon Dioxide (test 29 mmol/L 22-29 code=CO2) Glucose (test code=GLU) 120 mg/dL 70-115 Blood Urea Nitrogen (test 51 mg/dL 8-23 code=BUN) Creatinine (test 1.7 mg/dL 0.5-0.9 code=CREAT) Calcium (test code=CA) 8.1 mg/dL 8.3-10.5 BUN/Creatinine Ratio 30.0 (test code=BCRATIO) Anion Gap (test 12 mmol/L 7-16 code=AGAP) Estimated GFR (test 32 mL/min/1.73m2 eGFR (estimated Glomerular code=GFR) Filtration Rate) is an estimated value,calculated from the patient's serum creatinine using the MDRD equation.It is NOT the patient's actual GFR. The eGFR provides a more clinicallyuseful measure of kidney disease than serum creatinine alone.This calculation takes sex and race into account, if the informationis provided. If the race is not provided, and the patient isAfrican-Puerto Rican, multiply by 1.212. If sex is not provided, and thepatient is female, multiply by 0.742. Results for patients <18 years ofage have not been validated by the MDRD study and should be interpretedwith caution.eGFR Result Interpretation:eGFR > or=60 is in the Normal RangeeGFR < 60 may mean kidney diseaseeGFR < 15 may mean kidney failureRanges recommended by the National Kidney Foundation,http://nkdep.nih .gov C-Reactive Protein, [id number] 07:17:00 Test Item Value Reference Range Comments CRP (test code=CRP) 28.4 mg/L 0.0-5.0 CBC with [id number] 07:00:00 Test Item Value Reference Range Comments WBC (test code=WBC) 8.6 K/cumm 4.4-10.5 RBC (test code=RBC) 4.11 M/cumm 3.75-5.20 Hemoglobin (test code=HGB) 12.1 gm/dL 12.2-14.8 Hematocrit (test code=HCT) 40.2 % 36.5-44.4 MCV (test code=MCV) 97.6 fL 80-100 MCH (test code=MCH) 29.3 pg 27.0-32.5 MCHC (test code=MCHC) 30.1 g/dL 32.0-37.5 RDW (test code=RDW) 15.2 % 11.5-14.5 Platelet Count (test code=PLTCT) 224 K/cumm 140-440 MPV (test code=MPV) 11.3 fL Diff Method (test code=DIFFM) Auto Neutrophil (test code=NEUT) 78.4 % 36-70 Lymphocyte (test code=LYMPH) 9.9 % 12-44 Monocyte (test code=MONO) 10.0 % 0-11 Eosinophil (test code=EOS) 1.2 % 0-7 Basophil (test code=BASO) 0.5 % 0-2 Neutro Abs (test code=ANEUT) 6.7 K/cumm 1.6-7.4 Lymph Abs (test code=ALYMPH) 0.9 K/cumm 0.5-4.6 [place] Abs (test code=AMONO) 0.9 K/cumm 0.0-1.2 Eos Abs (test code=AEOS) 0.10 K/cumm 0.00-0.74 Baso Abs (test code=ABASO) 0.0 K/cumm 0.00-0.21 Hypochromic (test code=HYPO) Slight POC Glucose, [id number] 20:50:00 Test Item Value Reference Range Comments POC Glucose (test 145 mg/dL 70-115 If you consider your patient code=POCGLUC) critically ill, the [place]isa Accu-Chek InformII metershould not be used for Glucose determinations.Draw a venous Glucose and send to the Main Lab for Analysis. POC Glucose, [id number] 17:14:00 Test Item Value Reference Range Comments POC Glucose (test 110 mg/dL 70-115 If you consider your patient code=POCGLUC) critically ill, the Elisa Accu-Chek InformII metershould not be used for Glucose determinations.Draw a venous Glucose and send to the Main Lab for Analysis. Partial Thromboplastin [id number] 14:54:00 Test Item Value Reference Range Comments aPTT (test code=PTT) 31.70 seconds 24.39-37.25 Prothrombin [id number] 14:54:00 Test Item Value Reference Range Comments PT (test code=PT) 13.50 seconds 9.78-13.35 INR (test code=INR) 1.20 Ratio 0.6-1.2 POC Glucose, [id number] 11:15:00 Test Item Value Reference Range Comments POC Glucose (test 138 mg/dL 70-115 If you consider your patient code=POCGLUC) critically ill, the [place]isa Accu-Chek InformII metershould not be used for Glucose determinations.Draw a venous Glucose and send to the Main Lab for Analysis. POC Glucose, [id number] 07:23:00 Test Item Value Reference Range Comments POC Glucose (test 104 mg/dL 70-115 If you consider your patient code=POCGLUC) critically ill, the Elisa Accu-Chek InformII metershould not be used for Glucose determinations.Draw a venous Glucose and send to the Main Lab for Analysis. POC Glucose, [id number] 20:08:00 Test Item Value Reference Range Comments POC Glucose (test 202 mg/dL 70-115 If you consider your patient code=POCGLUC) critically ill, the Elisa Accu-Chek InformII metershould not be used for Glucose determinations.Draw a venous Glucose and send to the Main Lab for Analysis. POC Glucose, [id number] 17:04:00 Test Item Value Reference Range Comments POC Glucose (test 120 mg/dL 70-115 Notify RN or MDIf you consider code=POCGLUC) your patient critically ill, the Elisa Accu-Chek InformII metershould not be used for Glucose determinations.Draw a venous Glucose and send to the Main Lab for Analysis. POC Glucose, [id number] 10:57:00 Test Item Value Reference Range Comments POC Glucose (test 154 mg/dL 70-115 Notify RN or MDIf you consider code=POCGLUC) your patient critically ill, the Elisa Accu-Chek InformII metershould not be used for Glucose determinations.Draw a venous Glucose and send to the Main Lab for Analysis. POC Glucose, [id number] 06:54:00 Test Item Value Reference Range Comments POC Glucose (test 120 mg/dL 70-115 Notify RN or MDIf you consider code=POCGLUC) your patient critically ill, the Elisa Accu-Chek InformII metershould not be used for Glucose determinations.Draw a venous Glucose and send to the Main Lab for Analysis. POC Glucose, [id number] 20:19:00 Test Item Value Reference Range Comments POC Glucose (test 150 mg/dL 70-115 If you consider your patient code=POCGLUC) critically ill, the [place]isa Accu-Chek InformII metershould not be used for Glucose determinations.Draw a venous Glucose and send to the Main Lab for Analysis. POC Glucose, [id number] 17:09:00 Test Item Value Reference Range Comments POC Glucose (test 141 mg/dL 70-115 Notify RN or MDIf you consider code=POCGLUC) your patient critically ill, the Elisa Accu-Chek InformII metershould not be used for Glucose determinations.Draw a venous Glucose and send to the Main Lab for Analysis. POC Glucose, [id number] 11:25:00 Test Item Value Reference Range Comments POC Glucose (test 160 mg/dL 70-115 If you consider your patient code=POCGLUC) critically ill, the [place]isa Accu-Chek InformII metershould not be used for Glucose determinations.Draw a venous Glucose and send to the Main Lab for Analysis. POC Glucose, [id number] 07:20:00 Test Item Value Reference Range Comments POC Glucose (test 109 mg/dL 70-115 If you consider your patient code=POCGLUC) critically ill, the [place] Accu-Chek InformII metershould not be used for Glucose determinations.Draw a venous Glucose and send to the Main Lab for Analysis. Vancomycin, [id number] 21:35:00 Test Item Value Reference Range Comments Teodoro Gutierrez (test code=VANTR) 14.1 ug/mL 10.0-20.0 POC Glucose, [id number] 20:38:00 Test Item Value Reference Range Comments POC Glucose (test 176 mg/dL 70-115 If you consider your patient code=POCGLUC) critically ill, the [place]isa Accu-Chek InformII metershould not be used for Glucose determinations.Draw a venous Glucose and send to the Main Lab for Analysis. POC Glucose, [id number] 17:03:00 Test Item Value Reference Range Comments POC Glucose (test 87 mg/dL 70-115 If you consider your patient code=POCGLUC) critically ill, the [place] Accu-Chek InformII metershould not be used for Glucose determinations.Draw a venous Glucose and send to the Main Lab for Analysis. POC Glucose, [id number] 10:55:00 Test Item Value Reference Range Comments POC Glucose (test 163 mg/dL 70-115 If you consider your patient code=POCGLUC) critically ill, the [place]isa Accu-Chek InformII metershould not be used for Glucose determinations.Draw a venous Glucose and send to the Main Lab for Analysis. POC Glucose, [id number] 07:00:00 Test Item Value Reference Range Comments POC Glucose (test 97 mg/dL 70-115 If you consider your patient code=POCGLUC) critically ill, the [place]isa Accu-Chek InformII metershould not be used for Glucose determinations.Draw a venous Glucose and send to the Main Lab for Analysis. Basic Metabolic [id number] 06:51:00 Test Item Value Reference Range Comments Sodium (test code=NA) 137 mmol/L 135-145 Potassium (test code=K) 4.5 mmol/L 3.5-5.1 Chloride (test code=CL) 98 mmol/L 98-105 Carbon Dioxide (test 29 mmol/L 22-29 code=CO2) Glucose (test code=GLU) 107 mg/dL 70-115 Blood Urea Nitrogen (test 45 mg/dL 8-23 code=BUN) Creatinine (test 1.2 mg/dL 0.5-0.9 code=CREAT) Calcium (test code=CA) 8.0 mg/dL 8.3-10.5 BUN/Creatinine Ratio 37.5 (test code=BCRATIO) Anion Gap (test 10 mmol/L 7-16 code=AGAP) Estimated GFR (test 48 mL/min/1.73m2 eGFR (estimated Glomerular code=GFR) Filtration Rate) is an estimated value,calculated from the patient's serum creatinine using the MDRD equation.It is NOT the patient's actual GFR. The eGFR provides a more clinicallyuseful measure of kidney disease than serum creatinine alone.This calculation takes sex and race into account, if the informationis provided. If the race is not provided, and the patient isAfrican-[place], multiply by 1.212. If sex is not provided, and thepatient is female, multiply by 0.742. Results for patients <18 years ofage have not been validated by the MDRD study and should be interpretedwith caution.eGFR Result Interpretation:eGFR > or=60 is in the Normal RangeeGFR < 60 may mean kidney diseaseeGFR < 15 may mean kidney failureRanges recommended by the National Kidney Foundation,http://nkdep.nih .gov POC Glucose, [id number] 20:42:00 Test Item Value Reference Range Comments POC Glucose (test 176 mg/dL 70-115 Notify RN or MDIf you consider code=POCGLUC) your patient critically ill, the Elisa Accu-Chek InformII metershould not be used for Glucose determinations.Draw a venous Glucose and send to the Main Lab for Analysis. POC Glucose, [id number] 17:21:00 Test Item Value Reference Range Comments POC Glucose (test 125 mg/dL 70-115 If you consider your patient code=POCGLUC) critically ill, the Elisa Accu-Chek InformII metershould not be used for Glucose determinations.Draw a venous Glucose and send to the Main Lab for Analysis. POC Glucose, [id number] 10:53:00 Test Item Value Reference Range Comments POC Glucose (test 169 mg/dL 70-115 If you consider your patient code=POCGLUC) critically ill, the Elisa Accu-Chek InformII metershould not be used for Glucose determinations.Draw a venous Glucose and send to the Main Lab for Analysis. POC Glucose, [id number] 07:29:00 Test Item Value Reference Range Comments POC Glucose (test 130 mg/dL 70-115 If you consider your patient code=POCGLUC) critically ill, the Elisa Accu-Chek InformII metershould not be used for Glucose determinations.Draw a venous Glucose and send to the Main Lab for Analysis. Basic Metabolic [id number] 07:27:00 Test Item Value Reference Range Comments Sodium (test code=NA) 137 mmol/L 135-145 Potassium (test code=K) 4.2 mmol/L 3.5-5.1 Chloride (test code=CL) 97 mmol/L 98-105 Carbon Dioxide (test 29 mmol/L 22-29 code=CO2) Glucose (test code=GLU) 105 mg/dL 70-115 Blood Urea Nitrogen (test 55 mg/dL 8-23 code=BUN) Creatinine (test 1.4 mg/dL 0.5-0.9 code=CREAT) Calcium (test code=CA) 7.7 mg/dL 8.3-10.5 BUN/Creatinine Ratio 39.3 (test code=BCRATIO) Anion Gap (test 11 mmol/L 7-16 code=AGAP) Estimated GFR (test 40 mL/min/1.73m2 eGFR (estimated Glomerular code=GFR) Filtration Rate) is an estimated value,calculated from the patient's serum creatinine using the MDRD equation.It is NOT the patient's actual GFR. The eGFR provides a more clinicallyuseful measure of kidney disease than serum creatinine alone.This calculation takes sex and race into account, if the informationis provided. If the race is not provided, and the patient isAfrican-[place], multiply by 1.212. If sex is not provided, and thepatient is female, multiply by 0.742. Results for patients <18 years ofage have not been validated by the MDRD study and should be interpretedwith caution.eGFR Result Interpretation:eGFR > or=60 is in the Normal RangeeGFR < 60 may mean kidney diseaseeGFR < 15 may mean kidney failureRanges recommended by the National Kidney Foundation,http://nkdep.nih .gov POC Glucose, [id number] 21:06:00 Test Item Value Reference Range Comments POC Glucose (test 131 mg/dL 70-115 If you consider your patient code=POCGLUC) critically ill, the Elisa Accu-Chek InformII metershould not be used for Glucose determinations.Draw a venous Glucose and send to the Main Lab for Analysis. Vancomycin, [id number] 18:57:00 Test Item Value Reference Range Comments Teodoro Gutierrez (test code=VANTR) 4.3 ug/mL 10.0-20.0 POC Glucose, [id number] 16:08:00 Test Item Value Reference Range Comments POC Glucose (test 134 mg/dL 70-115 If you consider your patient code=POCGLUC) critically ill, the [place]isa Accu-Chek InformII metershould not be used for Glucose determinations.Draw a venous Glucose and send to the Main Lab for Analysis. POC Glucose, [id number] 11:35:00 Test Item Value Reference Range Comments POC Glucose (test 175 mg/dL 70-115 If you consider your patient code=POCGLUC) critically ill, the Elisa Accu-Chek InformII metershould not be used for Glucose determinations.Draw a venous Glucose and send to the Main Lab for Analysis. [id number] 08:20:00 Test Item Value Reference Range Comments NT ProBnp (test code=PBNP) 89079 pg/mL 0-124 Prothrombin [id number] 07:39:00 Test Item Value Reference Range Comments PT (test code=PT) 15.80 seconds 9.78-13.35 INR (test code=INR) 1.40 Ratio 0.6-1.2 CBC with [id number] 07:30:00 Test Item Value Reference Range Comments WBC (test code=WBC) 9.3 K/cumm 4.4-10.5 RBC (test code=RBC) 4.01 M/cumm 3.75-5.20 Hemoglobin (test code=HGB) 12.2 gm/dL 12.2-14.8 Hematocrit (test code=HCT) 38.4 % 36.5-44.4 MCV (test code=MCV) 95.6 fL 80-100 MCH (test code=MCH) 30.3 pg 27.0-32.5 MCHC (test code=MCHC) 31.7 g/dL 32.0-37.5 RDW (test code=RDW) 14.7 % 11.5-14.5 Platelet Count (test code=PLTCT) 211 K/cumm 140-440 MPV (test code=MPV) 9.7 fL Diff Method (test code=DIFFM) Auto Neutrophil (test code=NEUT) 80.7 % 36-70 Lymphocyte (test code=LYMPH) 10.3 % 12-44 Monocyte (test code=MONO) 7.8 % 0-11 Eosinophil (test code=EOS) 0.9 % 0-7 Basophil (test code=BASO) 0.2 % 0-2 Neutro Abs (test code=ANEUT) 7.5 K/cumm 1.6-7.4 Lymph Abs (test code=ALYMPH) 0.9 K/cumm 0.5-4.6 [place] Abs (test code=AMONO) 0.7 K/cumm 0.0-1.2 Eos Abs (test code=AEOS) 0.09 K/cumm 0.00-0.74 Baso Abs (test code=ABASO) 0.0 K/cumm 0.00-0.21 Hypochromic (test code=HYPO) Slight POC Glucose, [id number] 07:05:00 Test Item Value Reference Range Comments POC Glucose (test 136 mg/dL 70-115 If you consider your patient code=POCGLUC) critically ill, the Elisa Accu-Chek InformII metershould not be used for Glucose determinations.Draw a venous Glucose and send to the Main Lab for Analysis. [id number] 15:52:00 Test Item Value Reference Range Comments Potassium (test code=K) 4.8 mmol/L 3.5-5.1 POC Glucose, [id number] 15:47:00 Test Item Value Reference Range Comments POC Glucose (test 163 mg/dL 70-115 Notify RN or MDIf you consider code=POCGLUC) your patient critically ill, the Elisa Accu-Chek InformII metershould not be used for Glucose determinations.Draw a venous Glucose and send to the Main Lab for Analysis. US DUPLX LWR EXT ART/BPG, [id number]/[id number] 13:55:29US DUPLX LWR EXT ART/ BPG, UNI/LTD-LEFTCLINICAL HISTORY: Left leg wound, diabetes, peripheral artery diseaseTechnique: Grayscale, color, and spectral sonography of the left lowerextremity arteries was performed.FINDINGS:Left leg (waveform / peak systolic velocity)HATCHERY MANAGER: Triphasic 141 cm/secProx SFA: Triphasic 127 cm/secMid SFA: Triphasic 126 cm/secDistal SFA: Triphasic 110 cm/secPopliteal: Triphasic 85 cm/secPTA: Monophasic 110 cm/secDPA: Monophasic 117 cm/secLower extremity edema is seen in the ankle and foot.IMPRESSION: Monophasic waveforms in the infrapopliteal arteries. Differentialconsiderations include moderate to advanced atherosclerotic disease,cellulitis, and/or hyperemia. Consider conventional angiographyfollow-up.Location: R16US DUPLX EXT VEIN [place], [facility] [place] [id number] 12:34:31EXAM: Venous duplex left lower extremity ultrasoundLocation: [id number]: r/o dvt; left leg painCOMPARISON: Left lower extremity CT 09/18/2017DISCUSSION: Gonzalez-scale, color Doppler, and spectral waveform ultrasoundanalysis of the left lower extremity was performed. The common femoralvein, proximal, mid and distal superficial femoral vein, and poplitealvein are compressible and show normal response to augmentation. Themajor veins at the calf show normal flow.IMPRESSION: No evidence for deep venous thrombosis in the left lowerextremity.XR CHEST 2V, [id number] 11:54 :59EXAM: Chest x-ray, 2 viewsLOCATION: [id number]: Chest radiograph 2015INDICATION: chfDISCUSSION:PA and lateral chest radiographs were submitted for interpretation (2total).Multilead cardiac device is seen over the left chest wall.There is central pulmonary vascular congestion with bibasilar opacity.Moderate left and small right pleural effusions are present. The cardiac silhouette is enlarged, but stable. No acute osseous abnormalities are identified. IMPRESSION:1. Central pulmonary vascular congestion with bibasilar opacity.2. Moderate left and small right pleural effusions.3. Stable ,enlarged cardiac silhouette.POC Glucose, [id number] 11:11:00 Test Item Value Reference Range Comments POC Glucose (test 260 mg/dL 70-115 Notify RN or MDIf you consider code=POCGLUC) your patient critically ill, the Elisa Accu-Chek InformII metershould not be used for Glucose determinations.Draw a venous Glucose and send to the Main Lab for Analysis. Sed Rate ESR ([place])2017-09-19 08:30:00 Test Item Value Reference Range Comments ESR (test code=HESR) 81 mm/Hr 0-20 Prothrombin [id number] 07:07:00 Test Item Value Reference Range Comments PT (test code=PT) 16.30 seconds 9.78-13.35 INR (test code=INR) 1.43 Ratio 0.6-1.2 Basic Metabolic [id number] 07:02:00 Test Item Value Reference Range Comments Sodium (test code=NA) 138 mmol/L 135-145 Potassium (test code=K) 5.8 mmol/L 3.5-5.1 Chloride (test code=CL) 99 mmol/L 98-105 Carbon Dioxide (test 28 mmol/L 22-29 code=CO2) Glucose (test code=GLU) 170 mg/dL 70-115 Blood Urea Nitrogen (test 51 mg/dL 8-23 code=BUN) Creatinine (test 1.3 mg/dL 0.5-0.9 code=CREAT) Calcium (test code=CA) 8.0 mg/dL 8.3-10.5 BUN/Creatinine Ratio 39.2 (test code=BCRATIO) Anion Gap (test 11 mmol/L 7-16 code=AGAP) Estimated GFR (test 43 mL/min/1.73m2 eGFR (estimated Glomerular code=GFR) Filtration Rate) is an estimated value,calculated from the patient's serum creatinine using the MDRD equation.It is NOT the patient's actual GFR. The eGFR provides a more clinicallyuseful measure of kidney disease than serum creatinine alone.This calculation takes sex and race into account, if the informationis provided. If the race is not provided, and the patient isAfrican-Puerto Rican, multiply by 1.212. If sex is not provided, and thepatient is female, multiply by 0.742. Results for patients <18 years ofage have not been validated by the MDRD study and should be interpretedwith caution.eGFR Result Interpretation:eGFR > or=60 is in the Normal RangeeGFR < 60 may mean kidney diseaseeGFR < 15 may mean kidney failureRanges recommended by the National Kidney Foundation,http://nkdep.nih .gov CBC with [id number] 06:37:00 Test Item Value Reference Range Comments WBC (test code=WBC) 9.2 K/cumm 4.4-10.5 RBC (test code=RBC) 4.12 M/cumm 3.75-5.20 Hemoglobin (test code=HGB) 12.4 gm/dL 12.2-14.8 Hematocrit (test code=HCT) 40.0 % 36.5-44.4 MCV (test code=MCV) 97.0 fL 80-100 MCH (test code=MCH) 30.0 pg 27.0-32.5 MCHC (test code=MCHC) 30.9 g/dL 32.0-37.5 RDW (test code=RDW) 14.6 % 11.5-14.5 Platelet Count (test code=PLTCT) 185 K/cumm 140-440 MPV (test code=MPV) 9.7 fL Diff Method (test code=DIFFM) Auto Neutrophil (test code=NEUT) 82.2 % 36-70 Lymphocyte (test code=LYMPH) 9.2 % 12-44 Monocyte (test code=MONO) 7.8 % 0-11 Eosinophil (test code=EOS) 0.7 % 0-7 Basophil (test code=BASO) 0.2 % 0-2 Neutro Abs (test code=ANEUT) 7.6 K/cumm 1.6-7.4 Lymph Abs (test code=ALYMPH) 0.8 K/cumm 0.5-4.6 [place] Abs (test code=AMONO) 0.7 K/cumm 0.0-1.2 Eos Abs (test code=AEOS) 0.06 K/cumm 0.00-0.74 Baso Abs (test code=ABASO) 0.0 K/cumm 0.00-0.21 Hypochromic (test code=HYPO) Slight CT LWR EXTREM.WO [id number] 23:48:38Study: CT LWR EXTREM.WO CONTRAST-LEFTHistory: pain and cellulitis Technique: Axial CT examination of the left lower extremity wasperformed without intravenous contrast utilizing soft tissue algorithm.Sagittal and coronal reconstructions were also obtained. One or more of the following dose reduction techniques were used:Automated exposure control, adjustment of the mA and/or kV according topatient size, and/ or utilization of iterative reconstruction technique.Total DLP: 2705.4mGy-cm. Comparison: NoneSite: [id number]: There is no acute fracture, cortical erosion or bony destruction.There is no left hip dislocation. There are left acetabular subchondralcysts indicative of overlying full-thickness articular cartilagedefects. Spurring is seen at the left greater tuberosity. Anintratendinous ossificdensity is identified within the common hamstringattachment upon the left ischial tuberosity. There is mild corticalregularity at the symphysis pubis.There is tricompartmental osteoarthrosis, severe atthe medialtibiofemoral articulation where there is subtle cortical regularity,subchondral sclerosis and subchondral cystic change. There are prominenttricompartmental marginal osteophytes. There is an ossific densityposterior to the medial femoral condyle consistent with anintra- articular body, measuring 1.5 x 0.5 x 2.0 cm. There is a smallknee joint effusion.There is spurring at the anterior inferior tibiofibular attachment uponthe distal tibial attachment. Subchondral cystic changes seen at thetalar dome. There is no tibiotalar dislocation. Note is made of an osperoneum. Subchondral cysts are also identified within the proximalmedial aspects of the medial cuneiform. There is joint space narrowingat the talonavicular, cuneiform- navicular, first through thirdtarsometatarsal, and first metatarsophalangeal articulations.Diffuse subcutaneous edema is seen extending from the lower by to thefoot. Anteromedial to the distal tibial within the soft tissues is ahyperdense structure measuring 4.4 x 2.0 x4.5 cm. Vascular phlebolithsare seen. There is no radiopaque foreign body.IMPRESSION1. Hyperdense structure within the soft tissues anteromedial to thedistal tibia that may reflect a hematoma, underlying lesion notexcluded. Consider ultrasound examination to assess for internalvascularity. Regardless, clinical/imaging follow-up is recommended.2. Diffuse subcutaneous edema from the lower thigh to the foot, nonspecific.3. Femoroacetabular, knee, tibiotalar and midfoot osteoarthrosis.Posterior knee intra-articular body.POC Glucose, [id number] 20:26:00 Test Item Value Reference Range Comments POC Glucose (test 184 mg/dL 70-115 Notify RN or MDIf you consider code=POCGLUC) your patient critically ill, the Elisa Accu-Chek InformII metershould not be used for Glucose determinations.Draw a venous Glucose and send to the Main Lab for Analysis. C-Reactive Protein, [id number] 17:51:00 Test Item Value Reference Range Comments CRP (test code=CRP) 55.9 mg/L 0.0-5.0 [id number] 17:19:00 Test Item Value Reference Range Comments Phosphorus (test code=PO4) 2.7 mg/dL 2.70-4.50 Comprehensive Metabolic [id number] 17:19:00 Test Item Value Reference Range Comments Sodium (test code=NA) 139 mmol/L 135-145 Potassium (test code=K) 5.4 mmol/L 3.5-5.1 Chloride (test code=CL) 98 mmol/L 98-105 Carbon Dioxide (test 27 mmol/L 22-29 code=CO2) Glucose (test code=GLU) 211 mg/dL 70-115 Blood Urea Nitrogen (test 60 mg/dL 8-23 code=BUN) Creatinine (test 1.4 mg/dL 0.5-0.9 code=CREAT) Calcium (test code=CA) 8.3 mg/dL 8.3-10.5 Prot Total (test code=TP) 6.5 g/dL 6.4-8.3 Albumin (test code=ALB) 3.6 g/dL 3.5-5.2 A/G Ratio (test 1.2 Ratio code=AGRATIO) Globulin (test code=GLOB) 2.9 2.9-3.1 Bili Total (test 0.4 mg/dL 0.1-0.9 code=TBIL) Alk Phos (test 42 U/L 35-104 code=APHOS) AST (test code=AST) 16 U/L 1-32 ALT (test code=ALT) 11 U/L 1-33 BUN/Creatinine Ratio 42.9 (test code=BCRATIO) Anion Gap (test 14 mmol/L 7-16 code=AGAP) Estimated GFR (test 40 mL/min/1.73m2 eGFR (estimated Glomerular code=GFR) Filtration Rate) is an estimated value,calculated from the patient's serum creatinine using the MDRD equation.It is NOT the patient's actual GFR. The eGFR provides a more clinicallyuseful measure of kidney disease than serum creatinine alone.This calculation takes sex and race into account, if the informationis provided. If the race is not provided, and the patient isAfrican-Puerto Rican, multiply by 1.212. If sex is not provided, and thepatient is female, multiply by 0.742. Results for patients <18 years ofage have not been validated by the MDRD study and should be interpretedwith caution.eGFR Result Interpretation:eGFR > or=60 is in the Normal RangeeGFR < 60 may mean kidney diseaseeGFR < 15 may mean kidney failureRanges recommended by the National Kidney Foundation,http://nkdep.nih .gov Magnesium, [id number] 17:19:00 Test Item Value Reference Range Comments Magnesium (test code=MG) 2.6 mg/dL 1.7-2.5 CBC with [id number] 17:16:00 Test Item Value Reference Range Comments WBC (test code=WBC) 7.9 K/cumm 4.4-10.5 RBC (test code=RBC) 4.17 M/cumm 3.75-5.20 Hemoglobin (test code=HGB) 12.7 gm/dL 12.2-14.8 Hematocrit (test code=HCT) 39.5 % 36.5-44.4 MCV (test code=MCV) 94.8 fL 80-100 MCH (test code=MCH) 30.6 pg 27.0-32.5 MCHC (test code=MCHC) 32.2 g/dL 32.0-37.5 RDW (test code=RDW) 14.6 % 11.5-14.5 Platelet Count (test code=PLTCT) 202 K/cumm 140-440 MPV (test code=MPV) 9.9 fL Diff Method (test code=DIFFM) Auto Neutrophil (test code=NEUT) 82.1 % 36-70 Lymphocyte (test code=LYMPH) 9.8 % 12-44 Monocyte (test code=MONO) 6.6 % 0-11 Eosinophil (test code=EOS) 1.4 % 0-7 Basophil (test code=BASO) 0.2 % 0-2 Neutro Abs (test code=ANEUT) 6.5 K/cumm 1.6-7.4 Lymph Abs (test code=ALYMPH) 0.8 K/cumm 0.5-4.6 [place] Abs (test code=AMONO) 0.5 K/cumm 0.0-1.2 Eos Abs (test code=AEOS) 0.11 K/cumm 0.00-0.74 Baso Abs (test code=ABASO) 0.0 K/cumm 0.00-0.21 Hypochromic (test code=HYPO) Slight POC Glucose, [id number] 16:40:00 Test Item Value Reference Range Comments POC Glucose (test 231 mg/dL 70-115 Notify RN or MDIf you consider code=POCGLUC) your patient critically ill, the Elisa Accu-Chek InformII metershould not be used for Glucose determinations.Draw a venous Glucose and send to the Main Lab for Analysis.
--- NOTE | 2019-01-10 13:54 | ER ---
Nurse's Notes [facility] Name: Lizeth Fowler Age: 68 yrs Sex: Female : 1950 Arrival Date: 01/10/2019 Time: 13:10 Bed 2 Private MD: Diagnosis: Cellulitis of right lower limb;Sepsis, unspecified organism Presentation: 01/10 13:12 Presenting complaint: Patient states: "my right leg has been draining for about 2 weeks aa5 and it started blistering just now". Pt awake and alert in triage, pt states "My blood pressure normally runs low but just under 100 (systolic)". Transition of care: patient was not received from another setting of care. Onset of symptoms was January 10, 2019. Risk Assessment: Do you want to hurt yourself or someone else? Patient reports no desire to harm self or others. Care prior to arrival: None. 13:12 Method Of Arrival: Wheelchair aa5 13:12 Acuity: DREW 2 aa5 13:15 Initial Sepsis Screen: Does the patient meet any 2 criteria? Systolic BP < 90 mmHg. aa5 Mean Arterial Pressure (MAP) < 65. Yes Does the patient have a suspected source of infection? Yes: Skin breakdown/wound If YES to both, name of provider notified: Devan Luis MD. 14:39 Acuity: DREW 1 ph Historical: - Allergies: 13:14 No Known Allergies; aa5 - PMHx: 13:14 Arthritis; CAD; CHF; Chronic pain; Diabetes - IDDM; Gout; High Cholesterol; aa5 Hypertension; - PSHx: 13:14 pacemaker defib; Tonsillectomy; Adenoids; ; aa5 - Immunization history:: Pneumococcal vaccine is up to date, Flu vaccine is up to date. - Social history:: Smoking status: Patient/guardian denies using tobacco. - Ebola Screening: : No symptoms or risks identified at this time. Screenin:07 Abuse screen: Denies threats or abuse. Denies injuries from another. Nutritional ph screening: No deficits noted. Tuberculosis screening: No symptoms or risk factors identified. Fall Risk None identified. Assessment: 13:45 General: Appears in no apparent distress. comfortable, well groomed, Behavior is calm, ph cooperative, appropriate for age, Reports chills for 1-2 days. Pain: Complains of pain in right leg and left leg. Neuro: Level of Consciousness is awake, alert, obeys commands, Oriented to person, place, time, situation, Reports blurred vision dizziness, weakness. Cardiovascular: Reports fatigue, lightheadedness, nausea, Denies chest pain, shortness of breath, Capillary refill is sluggish in bilateral fingers Patient's skin is warm and dry. Edema is 2+ to left ankle, left foot, left toes, right midcalf, right ankle, right foot and right toes Rhythm is irregular. Respiratory: Airway is patent Respiratory effort is even, unlabored, Respiratory pattern is regular, symmetrical, Denies shortness of breath. GI: Abdomen is round non-distended, Reports nausea, Patient currently denies abdominal pain, diarrhea. : Denies burning with urination, urinary frequency. Derm: Skin is fragile, is thin, Skin is pink, warm \\T\\ dry. Derm: area of redness which appears to be cellulitis noted to R lower extremity, weeping of clear fluid also noted. Musculoskeletal: Circulation, motion, and sensation intact. Range of motion: intact in all extremities. 15:00 Reassessment: Patient appears in no apparent distress at this time. Patient and/or ph family updated on plan of care and expected duration. Pain level reassessed. Patient is alert, oriented x 3, equal unlabored respirations, skin warm/dry/pink. BP remains low, ERP aware, preparing for central line placement, pt remains awake and alert but reports dizziness, see MAR for medication orders. 16:00 Reassessment: Patient appears in no apparent distress at this time. No changes from previously documented assessment. Patient and/or family updated on plan of care and expected duration. Pain level reassessed. Patient is alert, oriented x 3, equal unlabored respirations, skin warm/dry/pink. 17:25 Reassessment: Patient appears in no apparent distress at this time. Patient and/or ph family updated on plan of care and expected duration. Pain level reassessed. Patient is alert, oriented x 3, equal unlabored respirations, skin warm/dry/pink. Report called to Faye PEREZ, preparing pt to be taken to ICU. Vital Signs: 13:12 BP 56 / 34; Pulse 65; Resp 16 S; Temp 97.8(TE); Pulse Ox 95% on R/A; aa5 13:14 BP 59 / 39; aa5 13:22 BP 107 / 68; Temp 98.0(O); aa5 13:30 BP 70 / 40; Pulse 64; Resp 20; Pulse Ox 95% on R/A; ph 13:45 BP 55 / 39; Pulse 61; Resp 20; Pulse Ox 100% on R/A; ph 14:00 BP 69 / 54; Pulse 60; Resp 22; Pulse Ox 98% on R/A; ph 14:05 Weight 90.72 kg; ph 14:15 BP 62 / 39; Pulse 62; Resp 20; Pulse Ox 100% ; ph 14:30 BP 64 / 33; Pulse 62; Resp 24; Pulse Ox 97% on R/A; ph 14:45 BP 59 / 39; Pulse 63; Resp 18; Pulse Ox 94% on R/A; ph 15:00 BP 45 / 31; Pulse 66; Resp 20; Pulse Ox 95% on R/A; ph 15:15 BP 64 / 49; Pulse 68; Resp 18; Pulse Ox 97% on R/A; ph 15:30 BP 54 / 36; Pulse 68; Resp 18; Pulse Ox 98% on R/A; ph 15:45 BP 59 / 35; Pulse 67; Resp 22; Pulse Ox 100% on R/A; ph 15:45 BP 62 / 46; Pulse 64; Resp 22; Pulse Ox 97% on R/A; ph 16:00 BP 62 / 51; Pulse 64; Resp 20; Pulse Ox 97% on R/A; ph 16:15 BP 63 / 41; Pulse 67; Resp 20; Pulse Ox 98% on R/A; ph 16:30 BP 51 / 30; Pulse 67; Resp 22; Pulse Ox 97% on R/A; ph 16:45 BP 62 / 32; Pulse 67; Resp 22; Pulse Ox 100% ; ph 16:53 BP 82 / 66; Pulse 65; Resp 21; Temp 97.6; Pulse Ox 96% on R/A; ph 17:03 BP 92 / 80; Pulse 71; Resp 24; Pulse Ox 96% on R/A; ph 17:15 BP 100 / 89; Pulse 67; Resp 18; Pulse Ox 98% on 2 lpm NC; ph 17:30 BP 76 / 49; Pulse 68; Resp 24; Pulse Ox 99% on 2 lpm NC; ph 17:45 BP 82 / 67; Pulse 69; Resp 24; Temp 97.8; Pulse Ox 100% on 2 lpm NC; ph ED Course: 13:10 Patient arrived in ED. as 13:12 Triage completed. aa5 13:12 Arm band placed on. aa5 13:22 Lydia Roque RN is Primary Nurse. ph 13:23 Devan Luis MD is Attending Physician. kdr 13:35 Inserted saline lock: 22 gauge in right forearm, using aseptic technique. ph 13:53 Rosmery Wolfe MD is Hospitalizing Provider. kdr 14:01 X-ray completed. Portable x-ray completed in exam room. Patient tolerated procedure jb2 well. 14:07 XRAY Chest (1 view) In Process Unspecified. EDMS 14:15 Inserted saline lock: 22 gauge in right hand, using aseptic technique. ph 15:15 Assisted provider with central line placement. Set up central line tray. Triple lumen ph line placed in right femoral. Line placed by Enoch TURNER Placement verified by blood return, Dressed with Tape, Tegaderm, Patient tolerated well. Before procedure, did Practitioner(s) obtain informed consent? Yes. Patient \\T\\ family education about procedure, CLABSI prevention and S/S of infection? Yes. Time-out/Briefing performed prior to start of procedure? Yes. Was handwashing/sanitizing done immediately prior to procedure? Yes. Was patient positioned to in a way to prevent air embolism? Yes. Was procedure site sterilized? Yes, with Was the site allowed to dry? Yes. Was local anesthetic and/or sedation utilized? Yes. During the procedure, did the Practitioner(s) maintain a sterile field? Yes. Were unused ports clamped during insertion? Yes. Was a 2nd qualified MD obtained after 3 unsuccessful insertion attempts? No. Was blood aspirated from each lumen? Yes. After the procedure, did the Practitioner(s) clean the site and apply a sterile dressing? Yes. Patient admitted, IV remains in place. 16:20 Wells cath inserted, using sterile technique, 16 Fr., by me, balloon inflated, to ph gravity drainage, urine specimen collected. 16:29 Patient has correct armband on for positive identification. Placed in gown. Bed in low ph position. Side rails up X2. monitoring coordinator on. Pulse ox on. NIBP on. 16:45 Wound care: to cellulitis located on lateral aspect of right calf and right doan was ph dressed with Kerlix, ABD pads, Patient tolerated well. Administered Medications: 14:05 Drug: NS 0.9% (30 ml/kg) 30 ml/kg {Note: 2700 mL .} Route: IV; Rate: bolus; Site: left ph forearm; 16:00 Follow up: Response: No adverse reaction; Blood pressure is unchanged; IV Status: ph Completed infusion; IV Intake: 2000ml 14:05 Drug: Zofran 4 mg Route: IVP; Site: left forearm; ph 18:07 Follow up: Response: No adverse reaction; Nausea is decreased ph 15:30 Drug: vancoMYCIN 1.5 grams Route: IVPB; Rate: calculated rate; Site: right femoral; ph 18:08 Follow up: Response: No adverse reaction; IV Status: Infusion continued upon admission ph 15:32 Drug: Vasopressin 0.02 units/min {Note: initiated at 0.01 units/min.} Route: IV; Rate: ph calculated rate; Site: right femoral; 16:07 Follow up: IV Status: Order to discontinue infusion ph 15:33 Drug: Zofran 4 mg Route: IVP; Site: left forearm; ph 18:07 Follow up: Response: No adverse reaction; Nausea is decreased ph 15:45 Drug: Cefepime 2 grams Route: IVPB; Rate: 200 ml/hr; Infused Over: 30 mins; Site: right ph femoral; 16:15 Follow up: Response: No adverse reaction; IV Status: Completed infusion ph 16:06 Drug: Levophed (4 mg/250 mL D5W 4 mcg/min Route: IV; Rate: calculated rate; Site: right ph femoral; 16:28 Follow up: Rate change 15 mcg/min ph 18:07 Follow up: Response: No adverse reaction; Blood pressure is elevated; IV Status: ph Infusion continued upon admission Intake: 16:00 IV: 2000ml; Total: 2000ml. ph Outcome: 13:54 Decision to Hospitalize by Provider. kdr 18:09 Admitted to ICU accompanied by nurse, accompanied by tech, via stretcher, room 1, with ph oxygen, on monitor, with chart, Report called to Faye PEREZ 18:09 critical 18:09 Instructed on the need for admit. 18:09 Patient left the ED. ph Signatures: Dispatcher [employer] EDDevan Govea MD MD kdr Buechter, Jesse jb2 Beverly Willson Audri, RN RN aa5 Lydia Roque RN RN ph Wilton Bynum RN RN jl7 Corrections: (The following items were deleted from the chart) 13:14 13:12 Acuity: DREW 3 aa5 aa5 13:18 13:12 Acuity: DREW 2 aa5 aa5 13:25 13:12 Presenting complaint: Patient states: "my right leg has been draining for about 2 aa5 weeks and it started blistering just now". aa5 13:25 13:12 Acuity: DREW 1 aa5 aa5 13:28 13:27 Initial Sepsis Screen: Does the patient meet any 2 criteria? jl7 jl7 14:28 13:15 Initial Sepsis Screen: Does the patient meet any 2 criteria? Systolic BP < 90 aa5 mmHg. Mean Arterial Pressure (MAP) < 65. Yes Does the patient have a suspected source of infection? Yes: Skin breakdown/wound aa5 15:32 14:05 NS 0.9% (30 ml/kg) 30 ml/kg IV at bolus in left forearm ph ph 15:33 15:32 Vasopressin 0.02 units/min IV at calculated rate in right femoral ph ph
--- NOTE | 2019-01-10 13:54 | EDPHYS ---
Physician Documentation [facility] Name: Lizeth Fowler Age: 68 yrs Sex: Female : 1950 Arrival Date: 01/10/2019 Time: 13:10 Bed 2 Private MD: ED Physician Devan Luis HPI: 01/10 13:39 This 68 yrs old Female presents to ER via Wheelchair with complaints of Leg kdr Problem. 13:39 The patient presents with pain, that is chronic, swelling, tenderness. The complaints kdr affect the lateral aspect of right calf, right Achilles, medial aspect of right calf and right doan. Context: The problem was sustained at home, The patient states that she had a small scratch on her right lower extremity about three weeks. Since then the has worsening swelling, pain and weeping from her right lower extremity. She has chronic CHF and SOB and she has not noted any worsening. She denies fever, chills or change in bowel habits - now has n/v. Onset: The symptoms/episode began/occurred gradually, 3 week(s) ago. Modifying factors: The symptoms are alleviated by nothing. the symptoms are aggravated by weight bearing, touching. Associated signs and symptoms: Pertinent positives: nausea. Severity of symptoms: At their worst the symptoms were mild, moderate, just prior to arrival, in the emergency department the symptoms are unchanged. The patient has not experienced similar symptoms in the past. The patient has not recently seen a physician. Historical: - Allergies: 13:14 No Known Allergies; aa5 - PMHx: 13:14 Arthritis; CAD; CHF; Chronic pain; Diabetes - IDDM; Gout; High Cholesterol; aa5 Hypertension; - PSHx: 13:14 pacemaker defib; Tonsillectomy; Adenoids; ; aa5 - Immunization history:: Pneumococcal vaccine is up to date, Flu vaccine is up to date. - Social history:: Smoking status: Patient/guardian denies using tobacco. - Ebola Screening: : No symptoms or risks identified at this time. ROS: 13:39 Constitutional: Negative for fever, chills, and weight loss, Eyes: Negative for injury, kdr pain, redness, and discharge, Neck: Negative for injury, pain, and swelling, Cardiovascular: Negative for chest pain, palpitations, and edema, Respiratory: Negative for acute shortness of breath, cough, wheezing, and pleuritic chest pain - she has had chronic SOB Abdomen/GI: Negative for abdominal pain, nausea, vomiting, diarrhea, and constipation, Back: Negative for injury and pain, MS/Extremity: Negative for injury and deformity, Skin: Negative for injury, rash, and discoloration - except for RLE - approximately 12 cm wide circumfrential area of erythema, macerated skin and weeping Neuro: Negative for headache, weakness, numbness, tingling, and seizure activity. Psych: Negative for depression, anxiety, suicide ideation, homicidal ideation, and hallucinations, Allergy/Immunology: Negative for hives, rash, and allergies, Endocrine: Negative for neck swelling, polydipsia, polyuria, polyphagia, and marked weight changes, Hematologic/Lymphatic: Negative for swollen nodes, abnormal bleeding, and unusual bruising. Exam: 13:39 Constitutional: This is a well developed, well nourished patient who is awake, alert, kdr and in no acute distress. Head/Face: Normocephalic, atraumatic. Eyes: Pupils equal round and reactive to light, extra-ocular motions intact. Lids and lashes normal. Conjunctiva and sclera are non-icteric and not injected. Cornea within normal limits. Periorbital areas with no swelling, redness, or edema. Neck: Trachea midline, no thyromegaly or masses palpated, and no cervical lymphadenopathy. Supple, full range of motion without nuchal rigidity, or vertebral point tenderness. No Meningismus. Chest/axilla: Normal chest wall appearance and motion. Nontender with no deformity. No lesions are appreciated. Cardiovascular: Regular rate and rhythm with a normal S1 and S2. No gallops, murmurs, or rubs. Normal PMI, no JVD. No pulse deficits. Respiratory: Lungs have equal breath sounds bilaterally, clear to auscultation and percussion. No rales, rhonchi or wheezes noted. No increased work of breathing, no retractions or nasal flaring. Abdomen/GI: Soft, non-tender, with normal bowel sounds. No distension or tympany. No guarding or rebound. No evidence of tenderness throughout. Back: No spinal tenderness. No costovertebral tenderness. Full range of motion. MS/ Extremity: Pulses equal, no cyanosis. Neurovascular intact. Full, normal range of motion. Neuro: Awake and alert, GCS 15, oriented to person, place, time, and situation. Cranial nerves II-XII grossly intact. Motor strength 5/5 in all extremities. Sensory grossly intact. Cerebellar exam normal. Normal gait. Psych: Awake, alert, with orientation to person, place and time. Behavior, mood, and affect are within normal limits. 13:39 Skin: Appearance: Moisture: diaphoretic, damp, ecchymosis, that are mild, flushing, that are mild, swelling, that are moderate, cellulitis, that is moderate, that is severe, confluent, well demarcated, on the right ankle, right Achilles and anterior aspect of right ankle, induration, that is moderate is noted, rash a moderate rash is noted. Vital Signs: 13:12 BP 56 / 34; Pulse 65; Resp 16 S; Temp 97.8(TE); Pulse Ox 95% on R/A; aa5 13:14 BP 59 / 39; aa5 13:22 BP 107 / 68; Temp 98.0(O); aa5 13:30 BP 70 / 40; Pulse 64; Resp 20; Pulse Ox 95% on R/A; ph 13:45 BP 55 / 39; Pulse 61; Resp 20; Pulse Ox 100% on R/A; ph 14:00 BP 69 / 54; Pulse 60; Resp 22; Pulse Ox 98% on R/A; ph 14:05 Weight 90.72 kg; ph 14:15 BP 62 / 39; Pulse 62; Resp 20; Pulse Ox 100% ; ph 14:30 BP 64 / 33; Pulse 62; Resp 24; Pulse Ox 97% on R/A; ph 14:45 BP 59 / 39; Pulse 63; Resp 18; Pulse Ox 94% on R/A; ph 15:00 BP 45 / 31; Pulse 66; Resp 20; Pulse Ox 95% on R/A; ph 15:15 BP 64 / 49; Pulse 68; Resp 18; Pulse Ox 97% on R/A; ph 15:30 BP 54 / 36; Pulse 68; Resp 18; Pulse Ox 98% on R/A; ph 15:45 BP 59 / 35; Pulse 67; Resp 22; Pulse Ox 100% on R/A; ph 15:45 BP 62 / 46; Pulse 64; Resp 22; Pulse Ox 97% on R/A; ph 16:00 BP 62 / 51; Pulse 64; Resp 20; Pulse Ox 97% on R/A; ph 16:15 BP 63 / 41; Pulse 67; Resp 20; Pulse Ox 98% on R/A; ph 16:30 BP 51 / 30; Pulse 67; Resp 22; Pulse Ox 97% on R/A; ph 16:45 BP 62 / 32; Pulse 67; Resp 22; Pulse Ox 100% ; ph 16:53 BP 82 / 66; Pulse 65; Resp 21; Temp 97.6; Pulse Ox 96% on R/A; ph 17:03 BP 92 / 80; Pulse 71; Resp 24; Pulse Ox 96% on R/A; ph 17:15 BP 100 / 89; Pulse 67; Resp 18; Pulse Ox 98% on 2 lpm NC; ph 17:30 BP 76 / 49; Pulse 68; Resp 24; Pulse Ox 99% on 2 lpm NC; ph 17:45 BP 82 / 67; Pulse 69; Resp 24; Temp 97.8; Pulse Ox 100% on 2 lpm NC; ph Procedures: 15:33 Central Line: the site was prepped with Betadine, in sterile fashion, a triple lumen jr8 catheter was inserted, in the right femoral vein, in 1 attempts. placement was verified, by blood return, the site was dressed with 4X4s, Tegaderm, foam tape, using sterile technique, the patient tolerated the procedure, well. MDM: 13:39 Data reviewed: vital signs, nurses notes, lab test result(s), radiologic studies. kdr Counseling: I had a detailed discussion with the patient and/or guardian regarding: the historical points, exam findings, and any diagnostic results supporting the discharge/admit diagnosis, lab results, radiology results, the need for further work-up and treatment in the hospital. 13:54 Patient medically screened. kdr 01/10 13:23 Order name: Basic Metabolic Panel; Complete Time: 14:50 kdr 01/10 13:23 Order name: CBC with Diff kdr 01/10 13:23 Order name: LFT's; Complete Time: 14:50 kdr 01/10 13:23 Order name: Magnesium; Complete Time: 14:50 kdr 01/10 13:23 Order name: NT PRO-BNP; Complete Time: 14:50 kdr 01/10 13:23 Order name: PT-INR; Complete Time: 14:50 kdr 01/10 13:23 Order name: Troponin (emerg Dept Use Only); Complete Time: 14:50 kdr 01/10 13:24 Order name: Blood Culture Adult (2) kdr 01/10 13:24 Order name: Ckmb; Complete Time: 14:50 kdr 01/10 13:24 Order name: CPK; Complete Time: 14:50 kdr 01/10 13:24 Order name: Lactate; Complete Time: 14:50 kdr 01/10 13:24 Order name: Lipase; Complete Time: 14:50 kdr 01/10 13:24 Order name: Procalcitonin kdr 01/10 13:24 Order name: Ptt, Activated; Complete Time: 14:50 kdr 01/10 13:23 Order name: XRAY Chest (1 view); Complete Time: 14:50 kdr 01/10 13:23 Order name: EKG; Complete Time: 13:25 kdr 01/10 13:23 Order name: Cardiac monitoring; Complete Time: 15:34 kdr 01/10 13:23 Order name: EKG - Nurse/Tech; Complete Time: 15:34 kdr 01/10 13:24 Order name: Urine Microscopic Only [facility] 01/10 14:25 Order name: CBC Smear Scan [facility] 01/10 16:28 Order name: Urine Dipstick--Ancillary (enter results) em1 01/10 17:18 Order name: Urine Dipstick-Ancillary [facility] 01/10 17:27 Order name: Cortisol ph 01/10 13:23 Order name: IV Saline Lock; Complete Time: 15:34 kdr 01/10 13:23 Order name: Labs collected and sent; Complete Time: 15:34 kdr 01/10 13:23 Order name: O2 Per Protocol; Complete Time: 15:34 kdr 01/10 13:23 Order name: O2 Sat Monitoring; Complete Time: 15:34 kdr 01/10 13:24 Order name: Accucheck; Complete Time: 15:33 kdr 01/10 13:24 Order name: IV Saline Lock - Large Bore; Complete Time: 15:33 kdr 01/10 13:24 Order name: Urine Dipstick-Ancillary (obtain specimen); Complete Time: 16:27 kdr Administered Medications: 14:05 Drug: NS 0.9% (30 ml/kg) 30 ml/kg {Note: 2700 mL .} Route: IV; Rate: bolus; Site: left ph forearm; 16:00 Follow up: Response: No adverse reaction; Blood pressure is unchanged; IV Status: ph Completed infusion; IV Intake: 2000ml 14:05 Drug: Zofran 4 mg Route: IVP; Site: left forearm; ph 18:07 Follow up: Response: No adverse reaction; Nausea is decreased ph 15:30 Drug: vancoMYCIN 1.5 grams Route: IVPB; Rate: calculated rate; Site: right femoral; ph 18:08 Follow up: Response: No adverse reaction; IV Status: Infusion continued upon admission ph 15:32 Drug: Vasopressin 0.02 units/min {Note: initiated at 0.01 units/min.} Route: IV; Rate: ph calculated rate; Site: right femoral; 16:07 Follow up: IV Status: Order to discontinue infusion ph 15:33 Drug: Zofran 4 mg Route: IVP; Site: left forearm; ph 18:07 Follow up: Response: No adverse reaction; Nausea is decreased ph 15:45 Drug: Cefepime 2 grams Route: IVPB; Rate: 200 ml/hr; Infused Over: 30 mins; Site: right ph femoral; 16:15 Follow up: Response: No adverse reaction; IV Status: Completed infusion ph 16:06 Drug: Levophed (4 mg/250 mL D5W 4 mcg/min Route: IV; Rate: calculated rate; Site: right ph femoral; 16:28 Follow up: Rate change 15 mcg/min ph 18:07 Follow up: Response: No adverse reaction; Blood pressure is elevated; IV Status: ph Infusion continued upon admission Disposition: 01/10/19 13:54 Hospitalization ordered by Rosmery Wolfe for Inpatient Admission. Preliminary diagnosis are Cellulitis of right lower limb, Sepsis, unspecified organism. - Bed requested for Intensive Care Unit. - Status is Inpatient Admission. ph - Condition is Fair. - Problem is new. - Symptoms have improved. UTI on Admission? No Addendum: 01/13/2019 09:21 Co-signature as Attending Physician, Devan Luis MD I agree with the assessment and k dr plan of care. Signatures: Dispatcher [employer] EDMS Devan Luis MD MD kdr Martinez, Eric em1 Love Norman RN RN aa5 Enoch Onofre PA PA jr8 Roque, Lydia, RN RN ph Corrections: (The following items were deleted from the chart) 01/10 16:49 13:54 Hospitalization Ordered by Rosmery Wolfe MD for Inpatient Admission. Preliminary em1 diagnosis is Cellulitis of right lower limb; Sepsis, unspecified organism. Bed requested for Telemetry/MedSurg (Inpatient). Status is Inpatient Admission. Condition is Fair. Problem is new. Symptoms have improved. UTI on Admission? No. kdr 18:09 16:49 01/10/2019 13:54 Hospitalization Ordered by Rosmery Wolfe MD for Inpatient ph Admission. Preliminary diagnosis is Cellulitis of right lower limb; Sepsis, unspecified organism. Bed requested for Intensive Care Unit. Status is Inpatient Admission. Condition is Fair. Problem is new. Symptoms have improved. UTI on Admission? No. em1
[2019-01-10] MEDS ORDERED: ONDANSETRON 4 MG/2 ML VIAL ONE ×2 (14:00→15:10)
[2019-01-10] MEDS ORDERED: NA CHLORIDE 0.9% 1,000 ML ONE ×3 (14:00→15:10)
[2019-01-10 14:08] LABS: Absolute Lymphocytes (CBC) 0.6 K/uL (0.7-4.9); Basophils % 0.5 % (0-1.3); Lymphocytes % 4.7 % (15.3-44.8); MPV 9.3 fL (7.6-11.3); RBC Red Blood Cell Count 4.36 M/uL (3.86-4.86)
--- NOTE | 2019-01-10 14:16 | RAD REPORT ---
EXAM DESCRIPTION: RAD - Chest Single View - 01/10/2019 2:06 pm CLINICAL HISTORY: Leg swelling, shortness of breath COMPARISON: None. TECHNIQUE: AP portable chest image was obtained 1404 hours . FINDINGS: No peripheral mass or consolidation in the right lung field. Interstitial stranding is pre sent in the right base that could be atelectasis or early interstitial infiltrates/edema. A right ple ural effusion is present. Larger left pleural effusion is present only partially visualized. Mild car diomegaly is present and vasculature is prominent. Defibrillator/ pacemaker overlies the left chest. No pneumothorax. No acute bony abnormality seen. No acute aortic findings suspected. IMPRESSION: CHF/volume overload with left greater than right pleural effusions.
[2019-01-10 14:23] LABS: Protime INR 2.07
--- NOTE | 2019-01-10 14:24 | EKG ---
Test Date: 2019-01-10 Test Time: 13:40:15 Chute Greaser: IVANIA MEASUREMENT RESULTS: Intervals: Rate: 61 TN: QRSD: 182 QT: 524 QTc: 527 [place]: P: TN: QRS: 240 T: 40 INTERPRETIVE STATEMENTS: Rhythm consistent with VVI pacing Underlying atrial fibrillation with no AV conduction Abnormal ECG No previous ECG available for comparison Electronically Signed On 01-10-19 14:24:29 CDT by Maximo Betancur
[2019-01-10 14:30] LABS: ALT/SGPT 15 U/L (12-78); AST/SGOT 14 U/L (15-37); Albumin 2.4 g/dL (3.4-5.0); Alkaline Phosphatase 40 U/L (45-117); BUN Blood Urea Nitrogen 98 mg/dL (7-18); Bicarbonate 23 mmol/L (21-32); Bilirubin Direct 0.1 mg/dL (0-0.2); Bilirubin Total 0.4 mg/dL (0.2-1.0); Glucose Level 130 mg/dL (74-106); Magnesium 2.8 mg/dL (1.8-2.4); NT PRO-BNP 8585 pg/mL (<125); Potassium 5.1 mmol/L (3.5-5.1); Protein, Total 5.5 g/dL (6.4-8.2); Sodium Level 132 mmol/L (136-145); Troponin (Emerg Dept Use Only) < 0.02 ng/mL (0.0-0.045)
[2019-01-10 14:32] LABS: CKMB Creatine Kinase MB 1.6 ng/mL (0.3-3.6)
[2019-01-10] MEDS ORDERED: VANCOMYCIN 1.5 GM in NA CHLORIDE 0.9% 500 ML IVPB ONE (15:00)
[2019-01-10] MEDS ORDERED: CEFEPIME/SWI 2gm 2 GM/20 ML SYR IV ONE (15:00)
[2019-01-10] MEDS ORDERED: VASOPRESSIN 80 UNIT in NA CHLORIDE 0.9% 250 ML IV PRN (15:06)
[2019-01-10 15:07] LABS: Anisocytosis 2+; Blood Morphology Comment NOTED (NOT SEEN); Hypochromasia 1+; Platelet Estimate ADEQ; Poikilocytosis SLIGHT; Polychromasia SLIGHT; Urine White Blood Cell Casts OK
[2019-01-10] MEDS ORDERED: NOREPINEPHRINE 4mg/D5W 250mL 4 MG/250 ML BAG IV ONE (15:57)
[2019-01-10 17:17] LABS: Urine Blood NEGATIVE (NEG); Urine Glucose NEGATIVE (NEG); Urine Protein NEGATIVE (NEG)
[2019-01-10] MEDS ORDERED: NOREPINEPHRINE 4 MG in D5W 250 ML IV PRN (17:33)
[2019-01-10 17:38] LABS: Urine Amorphous Sediment 4+ /HPF (NONE SEEN); Urine Bacteria <20 /HPF (<20); Urine Culture Reflex Order NOT NEEDED; Urine RBC <5 /HPF (NONE SEEN)
[2019-01-10] MEDS ORDERED: D50W 25 GM/50 ML SYRINGE IV PRN (17:52)
[2019-01-10] MEDS ORDERED: NA CHLORIDE 0.9% 500 ML IV ONE (17:52)
[2019-01-10] MEDS ORDERED: GLUCAGON 1 MG/VIAL IM PRN (17:52)
[2019-01-10] MEDS ORDERED: NA CHLORIDE 0.9% 1,000 ML IV SCH (17:52)
[2019-01-10] MEDS ORDERED: NOREPINEPHRINE 8 MG in Dextrose 5%-Water 500 ML IV PRN (17:57)
[2019-01-10] MEDS ORDERED: EPINEPHrine 4 MG in NA CHLORIDE 0.9% 250 ML IV PRN (18:35)
[2019-01-10] MEDS: INSULIN -REGULAR HUMAN 50 UNIT/0.5 ML ML SQ SCH ×2 (19:09→22:02)
[2019-01-10] MEDS ORDERED: CEFEPIME 1 GM/VIAL IV SCH (21:00)
[2019-01-10] MEDS ORDERED: VANCOMYCIN 750 MG in NA CHLORIDE 0.9% 150 ML IVPB ONE (21:00)
[2019-01-10] MEDS: NOREPINEPHRINE 8 MG in Dextrose 5%-Water 500 ML IV PRN (21:08)
[2019-01-10] MEDS: CEFEPIME/SWI 1gm 10 ML IVP SCH (21:23)
[2019-01-10] MEDS: NA CHLORIDE 0.9% 1,000 ML IV SCH (22:03)
[2019-01-11] MEDS: NOREPINEPHRINE 8 MG in Dextrose 5%-Water 500 ML IV PRN ×5 (01:48→21:20)
--- NOTE | 2019-01-11 03:48 | HP ---
Date of Admission: 01/10/2019 Chief Complaint: Right lower extremity wound. Primary Care Physician: Out of town in [place]. History Of Present Illness: Patient is a 68-year-old female with past medical history of diabetes, c oronary artery disease, congestive heart failure, hyperlipidemia, hypertension, comes in with right l eg swelling and redness. Patient was in her usual state of health until 3 weeks prior to admission w hen the patient had minimal ulceration of her right lower extremity. However, over the past several days, the wound has seen the ulceration has become fairly large with significant erythema, pain, swel ling, therefore, patient sought to seek medical attention. Patient's symptoms are constant, moderate , progressively worsening. She denied any fevers or chills. Patient denies any trauma to the leg. The patient has been in the process of moving. In the ER, patient was found to be in hypotensive tracy ck with a blood pressure of 50s over 30s. She was not tachycardic. Temperature was 97.8. Her talat p revealed a white blood cell count of 12,000. INR was 2, kidney function was elevated, her procalci tonin and lactate were negative. Patient was started on sepsis bundle, and referred for admission. Patient did not respond to IV fluid bolus and therefore pressors were initiated after central line pl acement. When seen in the ER, she was awake, complaining of generalized weakness, able to provide hi story fairly well tolerating the blood pressure. Past Medical History: Hypertension, hyperlipidemia, diabetes mellitus type 2 insulin requiring, gout , chronic pain syndrome, congestive heart failure, coronary artery disease, arthritis. Surgical History: Pacemaker defibrillator, tonsillectomy, adenoidectomy, . Allergies: NO KNOWN DRUG ALLERGIES. Medications: List reviewed. Social History: Patient denies any tobacco use, alcohol use, or illicit drug use. Patient is fairly independent, however, does require some assistance due to difficulty ambulating with her activities of daily living. Patient lives with her daughter. Family History: Patient denies any premature coronary artery disease in the family. Review of Systems: An 11-point system reviewed, negative except as per HPI. Physical Examination: Vital Signs: Blood pressure 56/34, pulse 65, respirations 16, temperature 97.8, O2 of 95% on room ai r. General: Awake, alert, and oriented x3. Elderly female, in mild distress, very ill appearing. HEENT: Normocephalic, atraumatic. PERRLA, EOMI. Dry mucous membranes. Oropharynx is clear. Poor dentition. Conjunctivae are anicteric. Neck: Supple. No JVD. Trachea midline. CV: S1, S2. Regular rate and rhythm. Peripheral pulses weak bilaterally. Respiratory: Diminished breath sounds, crackles present. No wheezing. No stridor. No use of acces junito muscles. Gastrointestinal: Abdomen is soft, nontender, nondistended. Positive bowel sounds. No guarding or rigidity. Extremities: No clubbing or cyanosis. Patient has diffuse peripheral edema bilateral lower extremit ies. No calf tenderness. Neuro: Cranial nerves 2 through 12 intact grossly. No focal neurological deficit. Speech is normal . Skin: Patient has erythema of the right lower extremity with venous stasis ulceration, which appears infected with weeping and discharge. Psych: Mood is okay. Affect is full. Insight and judgment are good. Laboratory Data: Sodium 132, potassium 5.1, chloride 99, CO2 of 23, BUN 98, creatinine 2.48, glucose 130, lactate 1.2, calcium 7.5, magnesium 2.8. CK levels 41, troponin less than 0.02. BNP 8585. Al bumin 2.4 lipase 259. Procalcitonin 0.36. WBC 12.1, H and H 8.8 and 31, platelets 269, neutrophils 86%. INR 2.07. UA is pending. Chest x-ray personally reviewed shows CHF volume overload with left greater than right pleural effusions. EKG shows rhythm consistent with pacing, rate of 61, underlyin g atrial fibrillation with no AV conduction. Assessment And Plan: A 68-year-old female with: 1.Septic shock secondary to right lower extremity cellulitis. Patient's blood pressure is 50s over 30s, has elevated white count. Source of infection is the right lower extremity wound. Patient does have an elevated creatinine level with end-organ damage. The patient did not respond to IV fluid shayne marielos challenge. We will start on pressor support with vasopressin. To titrate to a MAP of 65. We wi ll obtain blood cultures, wound cultures, and continue with broad-spectrum IV antibiotics for coverag e for gram-positive and Pseudomonas. Patient is diabetic. 2.Acute kidney injury. We will continue with IV fluid hydration. Monitor creatinine. Avoid NSAIDs . 3.Hyponatremia. Continue IV fluids. Patient is hypervolemic. 4.Acute on chronic congestive heart failure unknown EF. Patient's chest x-ray shows volume overload . BNP is elevated at 8000. Currently, patient requires IV fluid resuscitation. We will continue to monitor closely. 5.Hypomagnesemia. 6.Microcytic hypochromic anemia likely anemia of chronic disease and iron deficiency. 7.Mixed hyperlipidemia. 8.Gout. 9.Chronic pain syndrome. 10.Coronary artery disease [facility] artery and [facility] heart without angina. 11.Status post pacemaker defibrillator. 12.Osteoarthritis generalized. 13.Morbid obesity. Plan: Admit the patient to ICU, place as inpatient. Length Of Stay: Greater than 2 midnights. Guarded prognosis. /PARAG Voice ID: [id number]
[2019-01-11] MEDS ORDERED: HYDROCORTISONE SUC 100 MG INJ IV ONE (07:27)
[2019-01-11] MEDS: NA CHLORIDE 0.9% 250 ML IV PRN ×2 (07:44→08:23)
[2019-01-11] MEDS ORDERED: WATER FOR INJ,STERILE 10 ML ONE (07:45)
[2019-01-11] MEDS ORDERED: WATER FOR INJ,STERILE 10 ML IV SCH (08:00)
[2019-01-11] MEDS: INSULIN -REGULAR HUMAN 50 UNIT/0.5 ML ML SQ SCH ×4 (08:26→20:35)
[2019-01-11] MEDS ORDERED: ALBUMIN HUMAN 25% 100 ML IV ONE (08:27)
[2019-01-11] MEDS: CEFEPIME/SWI 1gm 10 ML IVP SCH ×2 (08:27→20:34)
--- NOTE | 2019-01-11 08:36 | P.CNS ---
Date of Consult: 01/11/19 Chief Complaint: Septic shock History of Present Illness: Patient is 68 years of age developed a little scratch an on her right lower leg and developed into a larger area presumed cellulitis became dizzy and appeared in the emergency room with refractory shock currently on Levophed and epinephrine has slight shortness of breath history of congestive heart failure has chronic lower extremity edema patient follows up with the doctors in [place] Allergies No Known Allergies Allergy (Unverified 09/11/17 23:39) Home Medications: Acetaminophen [Tylenol 8 Hour] 1,950 mg PO BEDTIME 11/21/17 Allopurinol [Zyloprim] 100 mg PO DAILY 11/21/17 Apixaban [Eliquis] 5 mg PO BID 11/21/17 Atorvastatin Calcium [Lipitor] 40 mg PO BEDTIME 11/21/17 Carvedilol [Coreg] 6.25 mg PO BID 11/21/17 Insulin Detemir [Levemir*] 14 unit SQ AC 11/21/17 Isosorbide Mononitrate [Isosorbide Mononitrate ER] 15 mg PO BID 11/21/17 Lactobacillus Acidophilus [Acidophilus] 1 each PO DAILY 11/21/17 Lisinopril [Prinivil] 5 mg PO BEDTIME 11/21/17 Potassium Chloride [Klor-Con 10] 10 meq PO DAILY 11/21/17 Spironolactone [Aldactone] 25 mg PO DAILY 11/21/17 Torsemide [Demadex] 40 mg PO BID 11/21/17 Zinc 50 mg PO DAILY 11/21/17 Ascorbic Acid [Vitamin C*] 1 tab PO DAILY 01/10/19 Cholecalciferol (Vitamin D3) [Vitamin D 400 IU TAB*] 1 tab PO DAILY 01/10/19 Cyanocobalamin (Vitamin B-12) [Vitamin B12] 1 tab PO DAILY 01/10/19 Prolia 60 mg IM Q6M 01/10/19 - Past Medical/Surgical History Diabetic: Yes -: IDDM -: Gout -: High cholesterol -: Chronic pain -: CHF -: CAD -: HTN -: arthritis -: TN -: cellulitis -: pacemaker/defib -: tonsillectomy -: adenoids -: -: cardiac stents x2 - Family History Father Medical History: Hypertension Notes: Mother Medical History: Hypertension Notes: Sister Medical History: Cancer - Social History Alcohol use: No CD- Drugs: No Caffeine use: No Place of Residence: Home Review of Systems General: Weakness Respiratory: Shortness of Breath Cardiovascular: Edema Musculoskeletal: Leg Pain Physical Examination Temp Pulse Resp BP Pulse Ox 97 F 79 29 H 95/55 L 98 01/11/19 04:00 01/11/19 08:15 01/11/19 08:15 01/11/19 08:15 01/11/19 08:15 General: Alert, Oriented x3, Mild distress HEENT: Atraumatic Neck: Supple Respiratory: Crackles/rales (Some crackles right greater than the left) Cardiovascular: Edema (Bilateral lower extremity edema) Gastrointestinal: Normal bowel sounds, Soft and benign Integumentary: Tenderness/swelling (Patient has tenderness redness lower 3rd of the tibial region adjacent to the ankle) Laboratory Data (last 24 hrs) 01/10/19 13:50: APTT 30.5 01/10/19 13:50: Lipase 259 01/10/19 13:50: PT 23.8 H, INR 2.07 01/10/19 13:50: WBC 12.1 H, Hgb 8.8 L, Hct 31.0 L, Plt Count 269 01/10/19 13:50: Sodium 132 L, Potassium 5.1, BUN 98 H, Creatinine 2.48 H, Glucose 130 H, Magnesium 2.8 H, Total Bilirubin 0.4, AST 14 L, ALT 15, Alkaline Phosphatase 40 L - Problems (1) Septic shock Current Visit: Yes Status: Acute Plan: Patient is 68 years of age history of congestive heart failure admitted with refractory shock presumed sepsis he is an 79 of cellulitis in her right lower leg patient is in renal failure microcytic anemia white count is minimally elevated pro calcitonin normal patient is on Levophed epinephrine 2 L of nasal cannula oxygen chest x-ray shows prominent hilum may have mild volume overload BNP is also elevated continue with IV fluids I have also given some albumin hydrocortisone thymine folate acid currently alert responsive cooperative coherent Time Spent Managing Pts care (In Minutes): 60
[2019-01-11 08:37] LABS: Absolute Lymphocytes (CBC) 1.4 K/uL (0.7-4.9); Basophils % 0.3 % (0-1.3); Hematocrit 34.3 % (36.0-45.0); Lymphocytes % 8.8 % (15.3-44.8); MPV 9.4 fL (7.6-11.3); RBC Red Blood Cell Count 4.79 M/uL (3.86-4.86)
[2019-01-11 08:48] LABS: Potassium 5.1 mmol/L (3.5-5.1)
[2019-01-11] MEDS: APIXABAN 5 MG TABLET PO SCH ×2 (09:06→20:34)
[2019-01-11] MEDS: THIAMINE 200 MG/2 ML INJ IVP SCH (09:06)
[2019-01-11] MEDS: ACETAMINOPHEN 500 MG TAB PO PRN (09:07)
[2019-01-11] MEDS: ASCORBIC ACID 500 MG TABLET PO SCH ×4 (09:07→20:34)
--- NOTE | 2019-01-11 09:30 | CON ---
History Of Present Illness: Mrs. Fowler is 68. She came to the hospital because of a wound on her ri ght leg. She has had wounds on her left leg that look like venous stasis ulcers. It is weeping. Lencho rahman also has a history of myocardial infarction with stents before 2009 and a cardiomyopathy. She appe ars to be in chronic atrial fibrillation and is on heart failure medications with a defibrillator. I t appears to be a 1 chamber defibrillator for resuscitation from VT. If she goes into it, it has nev er shocked her. It does not pace her at all with her present rhythm. We do not have any old EKGs or old studies on her heart. She came to the hospital with clinical signs of sepsis, probably from the right doan ulcer that was purulent-looking, oozing a lot of fluid as well. Outpatient Medications: Had been potassium chloride, torsemide, lisinopril, atorvastatin, isosorbide mononitrate, Coreg, Eliquis 5 b.i.d., spironolactone, allopurinol, insulin, and Prolia. Allergies: NO ALLERGIES ARE KNOWN. Social History: She uses no tobacco. Past Medical History: She has underlying diabetes, CAD, congestive heart failure, defibrillator, chr onic atrial fibrillation, and now septicemia from a wound infection on her right doan. Physical Examination: Vital Signs: Height 5 feet 2 inches, 215 pounds. Her blood pressure is 89/62, although right when I was in the room, it was just over 100. She is both on Levophed and epinephrine. She was more hypot ensive when she first came in. HEENT: Unremarkable. General: She is alert, oriented. Lungs: Do not reveal crackles. Heart: Irregularly irregular going about 80 beats per minute. Abdomen: Soft. Extremities: Reveal 3+ edema. There is a healed venous stasis ulcer on the left. Other chronic azam ous stasis changes on the left leg and a deep ulcer on the right leg oozing purulence. Studies: Doppler study of the leg veins indicated no DVT. No comment made on the vein, valves, or o ther findings of venous stasis. Her electrocardiogram shows QAMARKER] on the monitor now she is in a trial fibrillation with all conducted beats narrow complex. We do not have any EKG 12-lead _ rhythm. Impression: The patient needs a course of antibiotic treatment, local wound care and when we are abl e she needs a lot of diuresis, the diuresis will help the wound do better. Otherwise, she should con tinue on Eliquis. Alternative would be to give her heparin while she is here, but I think the Eliqui s is probably a better idea, right dose is 5 mg b.i.d. She has significant renal dysfunction, not navarro re if it is a baseline finding or not, but her kidneys are improving a little bit since being here. LENCHO/PARAG Voice ID: [id number] Report ID: [id number]
--- NOTE | 2019-01-11 14:15 | PN ---
Patient seen and examined. Chart reviewed and case discussed with RN, Dr. Betancur and Dr. Cooper. The patient continues to be hypotensive requiring multiple pressors. She is still awake and alert. States she feels a little bit better than yesterday, however, still very weak. Medications: List reviewed. Physical Examination: Vital Signs: Temperature 97.8, heart rate 87, blood pressure 112/66, respirations 25, O2 at 99% on 2 L via nasal cannula. General: Awake, alert, oriented x3. Elderly female, obese, ill-appearing. CV: S1, S2. Irregularly irregular. Peripheral pulses weak. Respiratory: Diminished breath sounds. Crackles heard. No wheezing, no stridor. Patient is tachypneic with use of accessory muscles. Gastrointestinal: Abdomen is soft, nontender, nondistended. Positive bowel sounds. Extremities: No clubbing, cyanosis. The patient has diffuse peripheral edema bilaterally. Neurologic: Nonfocal. Moves all 4 extremities. Speech is normal. Skin: The patient has chronic venous stasis ulcers with worsening on the left with weeping and erythema, tenderness to palpation on the right lower extremity. Laboratory Data: Sodium 131, potassium 5.1, chloride 101, CO2 of 22, BUN 86, creatinine 2.22, glucose 208, calcium 7.4. WBC 16.4, neutrophils 81%. Blood cultures pending. Wound culture is also pending. Assessment And Plan: A 68-year-old female with: 1. Septic shock. Blood pressure not responsive to IV fluids, currently on 2 pressors, likely secondary to cellulitis. We will keep MAP greater than 65. Continue with broad-spectrum IV antibiotics. Cultures are pending. Appreciate Dr. Cooper's input. 2. Acute kidney injury. Creatinine is improved slightly. We will continue to monitor creatinine levels and avoid NSAIDs. 3. hyponatremia. Patient did receive IV fluids today. Currently, fluid overloaded. We will continue to monitor. 4. Tbiyu-nl-iynfhgf congestive heart failure with unknown ejection fraction. BNP is elevated. The patient will need diuretics; however, blood pressure is low, requiring pressor support. Appreciate Dr. Betancur' input. 5. Electrolyte abnormality. replace and monitor. 6. Microcytic hypochromic anemia secondary to anemia of chronic disease and iron deficiency. We will continue to monitor and transfuse as needed. 7. Hyperlipidemia, stable. 8. Gout. We will hold allopurinol due to elevated kidney function. 9. Chronic pain syndrome. 10. Coronary artery disease [place] artery and [place] heart without angina, stable. 11. Status post pacemaker defibrillator, stable. 12. Generalized osteoarthritis, stable. 13. Morbid obesity. Plan: Continue supportive care in the ICU setting. Overall guarded prognosis. /PARAG Voice ID: [id number] Report ID: [id number] [facility] SERVICESSelam
[2019-01-11] MEDS ORDERED: VANCOMYCIN 1.5 GM in NA CHLORIDE 0.9% 500 ML IVPB SCH ×2 (15:00→21:00)
--- NOTE | 2019-01-11 17:55 | P.INFCA ---
Sepsis Focused Assessment - Focused Assessment Complete? Sepsis Focused Assessment Completed?: Yes - Sepsis Screen Result Septic Shock: Positive - Evaluation Current stage of sepsis: Septic shock - Vital Signs Reviewed: Yes Heart rate: 89 Blood Pressure: 94/62 Respiratory Rate: 35 O2 Sat by Pulse Oximetry: 98 - Examination Date exam was performed: 01/10/19 Time exam was performed: 17:35 Heart: S1, S2 Lungs: Diminished air movement, Rales Peripheral pulses: 1+ Faint Peripheral pulse location: Pedal Capillary refill: >2 Seconds Skin examination: Pale
[2019-01-11 18:52] LABS: Arterial Blood Carboxyhemoglob 2.4 % (0-1.5); Blood O2 Saturation 91.8 % (92-98.5)
--- NOTE | 2019-01-11 19:10 | RAD REPORT ---
EXAM DESCRIPTION: RAD - Chest Single View - 01/11/2019 6:49 pm CLINICAL HISTORY: f/u chf Chest pain. COMPARISON: Chest Single View dated 01/10/2019; Chest Single View dated 01/10/2019; Chest Single View da ciro 01/09/2019; Abdomen 1 View (KUB) dated 01/09/2019Chest Single View dated 01/10/2019 FINDINGS: Portable technique limits examination quality. Mild worsening in lung aeration is seen in the right base since the comparative study. Some of this m ay be attributable to differences in patient positioning. The heart is moderately enlarged with a mul ti lead pacer/defibrillator device present. No displaced fractures.
[2019-01-11] MEDS: HYDROCORTISONE SUC 100 MG INJ IV SCH ×2 (19:22→20:35)
[2019-01-11] MEDS: NA CHLORIDE 0.9% 1,000 ML IV SCH (19:22)
[2019-01-11] MEDS: WATER FOR INJ,STERILE 10 ML IV SCH (19:22)
[2019-01-11] MEDS ORDERED: NA CHLORIDE 0.9% 250 ML IV ONE (20:18)
[2019-01-11] MEDS ORDERED: ATORVASTATIN 40 MG TAB PO SCH (21:00)
[2019-01-12] MEDS ORDERED: ALBUMIN HUMAN 25% 100 ML IV ONE ×3 (00:42→10:35)
[2019-01-12] MEDS ORDERED: D5W 1,000 ML with NA BICARB 8.4% 100 MEQ IV SCH ×2 (01:00)
[2019-01-12] MEDS ORDERED: D5W 1,000 ML IV ONE (01:00)
[2019-01-12] MEDS: NOREPINEPHRINE 8 MG in Dextrose 5%-Water 500 ML IV PRN ×2 (05:31→20:14)
[2019-01-12 06:02] LABS: Absolute Lymphocytes (CBC) 1.4 K/uL (0.7-4.9); Hematocrit 33.1 % (36.0-45.0); Lymphocytes % 9.7 % (15.3-44.8); MPV 9.1 fL (7.6-11.3); RBC Red Blood Cell Count 4.57 M/uL (3.86-4.86)
[2019-01-12 06:05] LABS: Bilirubin Total 0.5 mg/dL (0.2-1.0); Protein, Total 5.8 g/dL (6.4-8.2)
--- NOTE | 2019-01-12 07:01 | P.PN ---
Date of Service: 01/11/19 Called because patient was tachypneic. Reviewed chart. Most likely related to combination of worsening pneumonia and metabolic acidosis. In the setting of hypotension, will correct metabolic acidosis as well. Patient with significant prerenal azotemia. May be able to increase the fluid hydration. Will also get an echocardiogram. May need nephrology consultation if labs are not improving. Significant worsening of hypoalbuminemia. This may worsen 3rd spacing. Will monitor closely over the next 6 hours and notify hospitalist team in a.m.
[2019-01-12] MEDS: INSULIN -REGULAR HUMAN 50 UNIT/0.5 ML ML SQ SCH ×4 (08:35→20:18)
[2019-01-12] MEDS: WATER FOR INJ,STERILE 10 ML IV SCH (08:36)
[2019-01-12] MEDS: THIAMINE 200 MG/2 ML INJ IVP SCH (08:36)
[2019-01-12] MEDS: LACTOBACILLUS/ACIDOPHILUS TAB PO SCH (08:36)
[2019-01-12] MEDS: CEFEPIME/SWI 1gm 10 ML IVP SCH ×2 (08:36→20:17)
[2019-01-12] MEDS: HYDROCORTISONE SUC 100 MG INJ IV SCH (08:36)
[2019-01-12] MEDS: APIXABAN 5 MG TABLET PO SCH ×2 (08:37→20:17)
[2019-01-12] MEDS: ASCORBIC ACID 500 MG TABLET PO SCH ×4 (08:37→20:17)
--- NOTE | 2019-01-12 10:23 | P.PN ---
Subjective Date of Service: 01/12/19 Chief Complaint: Septic shock Subjective: Improving (Patient is doing better she is alert responsive oriented cooperative still on 11 mics of Levophed all rating diet) Review of Systems General: Weakness Respiratory: Shortness of Breath Gastrointestinal: Nausea Physical Examination - Vital Signs Temperature: 97.9 F Blood Pressure: 94/56 Pulse: 87 Respirations: 28 Pulse Ox (%): 95 - Physical Exam General: Alert, In no apparent distress, Oriented x3 Respiratory: Clear to auscultation bilaterally, Diminished Cardiovascular: Edema, Abnormal S1 S2 Assessment & Plan - Problems (Diagnosis) (1) Septic shock Current Visit: Yes Status: Acute Plan: Patient is currently in septic shock improving on 11 mics of Levophed will plan to give her some more Album and start on IV fluids Dc D5 water with bicarbonate renal function is improving blood cultures are so far negative Dc Solu-Medrol continue with present antibiotics all labs reviewed bicarbonate satisfactory patient is on nasal cannula oxygen
--- NOTE | 2019-01-12 10:26 | PN ---
Date of Progress Note: 01/12/2019 Subjective: Patient is seen and examined. Chart was reviewed and case was discussed with RN. Tim reid is feeling better. Edema has improved. Patient is now off epinephrine, being weaned down off Lev ophed. Medication list was reviewed. Physical Examination: Vital Signs: Temperature 97.9, heart rate 75, blood pressure 102/65, respirations 28, O2 98% on 2 L via nasal cannula. General: Awake, alert, oriented x3. Elderly female, ill appearing, morbidly obese. CV: S1, S2. Peripheral pulses present. Regular rate and rhythm. Respiratory: Diminished breath sounds. No wheezing or stridor. Patient is tachypneic with the use of accessory muscles. Gastrointestinal: Abdomen is soft, nontender, nondistended. Positive bowel sounds. No guarding or rigidity. Extremities: No clubbing, cyanosis. Patient has diffuse peripheral edema. Neurologic: Nonfocal. Laboratory Data: Sodium 132, potassium 5, chloride 100, CO2 24, BUN 74, creatinine 1.82, glucose 271 , calcium 7.8. AST 50, ALT 98, albumin 3. WBC 14.2, H and H 9.4/33.1, platelets 313. Blood culture s: No growth to date. Wound cultures from the lower extremities are growing 3+ gram-negative rods. Assessment And Plan: A 68-year-old female with: 1.Septic shock secondary to cellulitis of the lower extremities. We will continue with broad-spectr um IV antibiotics and monitor cultures. Wound cultures are growing gram-negative rods. We will awai t ID and sensitivity. Patient is still on pressors. We will continue to wean as tolerated. Continu es to be tachypneic. 2.Right lower extremity cellulitis secondary to gram-negative rods. Continue broad-spectrum IV anti biotics, follow up on culture and sensitivities. 3.Acute kidney injury. Creatinine is improving. We will continue to monitor. 4.Hypomagnesemia. We will replace and monitor. 5.Vkopt-oi-wkppwoc congestive heart failure. We will continue with diuretics, try to avoid IV fluid s. 6.Hyponatremia, corrected. We will continue to monitor. 7.Microcytic, hypochromic anemia, likely anemia of chronic disease and iron deficiency. We will mon itor H and H and transfuse as needed. 8.Mixed hyperlipidemia. Continue statin. 9.Gout, stable. Allopurinol is on hold due to acute kidney injury. 10.Chronic pain syndrome, stable. 11.Coronary artery disease, [place] artery and [place] heart without angina, stable. 12.Status post pacemaker defibrillator, stable. 13.Generalized osteoarthritis, stable. 14.Morbid obesity, BMI 40. /PARAG Voice ID: [id number] Report ID: [id number]
[2019-01-12] MEDS: NA CHLORIDE 0.9% 1,000 ML IV SCH ×2 (10:54→20:15)
--- NOTE | 2019-01-12 11:02 | PN ---
Mrs. Fowler has slightly better blood pressure today, but at least still not there, give her diuretics . Her sepsis picture seems to be getting better with antibiotics and fluids. At some point, her wou nd would probably improve if we can diurese her some, but that would not be before tomorrow. At any rate, I will continue to follow Mrs. Fowler. PIEDAD/PARAG Voice ID: [id number] Report ID: [id number]
[2019-01-12] MEDS ORDERED: INSULIN DETEMIR 14 UNIT SQ SCH (11:30)
[2019-01-12] MEDS ORDERED: INSULIN GLARGINE 100 UNITS/ML SQ SCH (11:30)
[2019-01-12] MEDS ORDERED: VANCOMYCIN 1.5 GM in NA CHLORIDE 0.9% 500 ML IVPB SCH (21:00)
[2019-01-13] MEDS: BISACODYL E.C. 5 MG TAB PO PRN (03:48)
[2019-01-13 05:15] LABS: Absolute Lymphocytes (CBC) 1.1 K/uL (0.7-4.9); Basophils % 0.1 % (0-1.3); Hematocrit 33.9 % (36.0-45.0); Lymphocytes % 6.1 % (15.3-44.8); RBC Red Blood Cell Count 4.59 M/uL (3.86-4.86)
[2019-01-13 05:19] LABS: Albumin 2.8 g/dL (3.4-5.0); Bilirubin Total 0.4 mg/dL (0.2-1.0); Magnesium 2.6 mg/dL (1.8-2.4); Phosphorus 3.8 mg/dL (2.5-4.9); Potassium 4.8 mmol/L (3.5-5.1); Protein, Total 5.5 g/dL (6.4-8.2)
[2019-01-13] MEDS: NA CHLORIDE 0.9% 1,000 ML IV SCH ×3 (07:00→22:01)
[2019-01-13] MEDS: INSULIN -REGULAR HUMAN 50 UNIT/0.5 ML ML SQ SCH ×4 (07:30→22:02)
[2019-01-13] MEDS ORDERED: NA CHLORIDE 0.9% 1,000 ML IV ONE (07:59)
--- NOTE | 2019-01-13 08:21 | P.PN ---
Subjective Date of Service: 01/13/19 Chief Complaint: Septic shock Subjective: Improving (Patient is still on Levophed slightly short of breath) Review of Systems General: Weakness Respiratory: Shortness of Breath Physical Examination - Vital Signs Temperature: 97 F Blood Pressure: 84/53 Pulse: 83 Respirations: 39 Pulse Ox (%): 91 - Physical Exam General: Alert, In no apparent distress, Oriented x3 Respiratory: Clear to auscultation bilaterally, Diminished Assessment & Plan - Problems (Diagnosis) (1) Septic shock Current Visit: Yes Status: Acute Plan: Patient is in septic shock still requiring vasopressors repeat fluid bolus for L renal function is improving blood cultures negative wound culture shows Klebsiella and Pseudomonas patient is on cefepime ANCA mycin probably Dc vancomycin tomorrow labs kidney function is improving white count elevated wean off Levophed
[2019-01-13] MEDS: APIXABAN 5 MG TABLET PO SCH ×2 (08:50→21:59)
[2019-01-13] MEDS: LACTOBACILLUS/ACIDOPHILUS TAB PO SCH (08:50)
[2019-01-13] MEDS: ASCORBIC ACID 500 MG TABLET PO SCH ×4 (08:51→21:59)
[2019-01-13] MEDS: INSULIN GLARGINE 100 UNITS/ML SQ SCH (08:51)
[2019-01-13] MEDS: CEFEPIME/SWI 1gm 10 ML IVP SCH ×2 (08:53→22:03)
[2019-01-13] MEDS: THIAMINE 200 MG/2 ML INJ IVP SCH (08:55)
--- NOTE | 2019-01-13 10:18 | RAD REPORT ---
EXAM DESCRIPTION: RAD - Chest Single View - 01/13/2019 9:54 am CLINICAL HISTORY: Shortness of breath, volume overload COMPARISON: January 11 TECHNIQUE: AP portable chest image was obtained 0954 worse . FINDINGS: Lung volumes are low. Left greater than right pleural effusions are present. Cardiomegaly is present and there is vascular engorgement seen. Findings are not substantially different from the prior study. Trachea is midline. Pacemaker/ defibrillator remains in place. No pneumothorax. No acute bony abnormality seen. No acute aortic findings suspected. IMPRESSION: CHF/volume overload pattern not substantially different from January 11 imaging.
[2019-01-13] MEDS: NOREPINEPHRINE 8 MG in Dextrose 5%-Water 500 ML IV PRN ×2 (11:30→23:45)
--- NOTE | 2019-01-13 11:31 | ECHO ---
HEIGHT: 5 ft 2 in WEIGHT: 230 lb 8 oz DATE OF STUDY: 01/13/[address]: Jose Francisco Hughes MD 2-DIMENSIONAL: YES M.MODE: YES DOPPLER: YES COLOR FLOW: YES TDS: NO PORTABLE: NO DEFINITY: NO BUBBLE STUDY: NO DIAGNOSIS: SEPTIC SHOCK CARDIAC HISTORY: CATHERIZATION: YES SURGERY: NO PROSTHETIC VALVE: NO PACEMAKER: YES MEASUREMENTS (cm) DIASTOLIC (NORMALS) SYSTOLIC (NORMALS) IVSd 0.9 (0.6-1.2) LA Diam 4.7 (1.9-4.0) LVEF 12% LVIDd 6.2 (3.5-5.7) LVIDs 5.9 (2.0-3.5) %FS 5% LVPWd 1.0 (0.6-1.2) Ao Diam 2.5 (2.0-3.7) 2 DIMENSIONAL ASSESSMENT: RIGHT ATRIUM: DILATED LEFT ATRIUM: DILATED RIGHT VENTRICLE: DILATED LEFT VENTRICLE: DILATED TRICUSPID VALVE: NORMAL MITRAL VALVE: NORMAL PULMONIC VALVE: NORMAL AORTIC VALVE: NORMAL PERICARDIAL EFFUSION: NONE AORTIC ROOT: NORMAL LEFT VENTRICULAR WALL MOTION: ANTERIOR AKINESIS, HYPOKINESIS ELSEWHERE. DOPPLER/COLOR FLOW: MILD MITRAL AND TRICUSPID REGURGITATION. SEVERE PULMONARY HYPERTENSION, ESTIMATED RIGHT VENTRICULAR SYSTOLIC PRESSURE >65mmHg. COMMENTS: FOUR CHAMBER DILATATION. SEVERELY DEPRESSED LEFT VENTRICULAR EJECTION FRACTION WITH WALL MOTION ABNORMALITY. MILD MITRAL AND TRICUSPID REGURGITATION. SEVERE PULMONARY HYPERTENSION. TECHNOLOGIST: FRANCISCO JAVIER GRAHAM
[2019-01-13] MEDS ORDERED: HYDROCORTISONE SUC 100 MG INJ IV ONE (11:40)
[2019-01-13] MEDS: WATER FOR INJ,STERILE 10 ML IV SCH (13:43)
[2019-01-13] MEDS: ONDANSETRON 4 MG/2 ML VIAL IV PRN (16:00)
--- NOTE | 2019-01-13 17:54 | CON ---
History Of Present Illness: This is a 68-year-old female. Patient is currently on Levophed and also has right lower extremity stasis ulcer, which is draining profusely. Patient has significant past m edical history of diabetes mellitus, coronary artery disease, congestive heart failure, hyperlipidemi a, hypertension, comes in with swelling of the right leg and redness. Patient takes care of several grandchildren and her , who is also sick at home. Does not recall any trauma to the leg. No fevers. White blood cell count was elevated on arrival. Past Medical History: As per HPI. Surgical History: Pacemaker, defibrillator, tonsillectomy, adenectomy, and . Current Medications: Cefepime and vancomycin. See MARs for other medications. Allergies: NO KNOWN DRUG ALLERGIES. Review of Systems: A 10-point review was performed. Physical Examination: General: This is a 68-year-old female, lying in bed, not in any acute cardiopulmonary distress. Vital Signs: Temperature 97, pulse 81, respiration 25, blood pressure 70/47. HEENT: Unremarkable. Neck: Supple. Lungs: Basal crackles. Heart: S1 and S2 regular. Abdomen: Soft bowel sounds present. Obese. Extremities: 4+ edema, right leg with hyperpigmentation. Laboratory Data: WBC 17.5, hemoglobin 9.4, platelets are 301. Chemistry shows sodium 135, potassium 4.8, chloride 103, bicarb 24, BUN 69, creatinine 1.59, glucose . Micro data shows wound c ultures from leg are growing Pseudomonas and Klebsiella pneumoniae. Blood cultures negative for 24 h ours. Klebsiella pneumoniae is sensitive to cefepime. Pseudomonas is sensitive to cefepime. Assessment And Plan: Right lower extremity cellulitis with stasis ulcer. We will recommend to apply a circumferential wound VAC where the foam is wrapping the whole leg and apply 125 mmHg intermittent pressure of 5 minutes. Continue current antibiotic total of 2 weeks. Recommend to transfer patient to long-term acute care at [facility]. We will follow the patient closely. Thank you Dr. Wolfe for consult. NF/MODL Voice ID: [id number] Report ID: [id number]
--- NOTE | 2019-01-13 17:54 | PN ---
Date of Progress Note: 01/13/2019 Subjective: Patient seen and examined. Chart reviewed and case discussed with RN. Patient is doing better now on 7 mcg of Levophed. Her swelling is still quite significant. Medications: List reviewed. Physical Examination: Vital Signs: Temperature 97, heart rate 93, blood pressure 84/53, respirations 39, O2 91% on 2 L via nasal cannula. General: Awake, alert, oriented x3. Elderly female, morbidly obese, ill appearing. CV: S1, S2. Peripheral pulses present. Regular rate and rhythm. Respiratory: Diminished breath sounds. No wheezing or stridor. Patient is tachypneic with use of a ccessory muscles. Gastrointestinal: Abdomen is soft, nontender, nondistended. Positive bowel sounds. Extremities: No clubbing or cyanosis. Patient has diffuse edema of her lower extremities. Neurologic: Nonfocal. Laboratory Data: Sodium 135, potassium 4.8, chloride 103, CO2 24, BUN 69, creatinine 1.59, glucose 9 2, calcium 7.5, phosphorus 3.8, magnesium 2.6. Cortisol 31.66. WBC 17.5, hemoglobin and hematocrit 9.4 and 32.9, platelets 301, neutrophils 82%. Wound culture from the right lower leg growing out Pse udomonas and Klebsiella, both sensitive to cefepime. Echocardiogram shows EF of 12%, four-chamber di latation, severely depressed left ventricular ejection fraction with wall motion abnormality, mild mi tral and tricuspid regurg, severe pulmonary hypertension. Chest x-ray shows CHF volume overload anastasia keyur, not substantially different from January 11 imaging. Assessment And Plan: A 68-year-old female with: 1.Septic shock secondary to cellulitis of right lower extremity. Continue with broad-spectrum IV an tibiotics. This is secondary to Klebsiella and Pseudomonas. The patient is still on pressors, able to be weaned as tolerated, very tachypneic and hypoxic. 2.Right lower extremity cellulitis secondary to Pseudomonas and Klebsiella, sensitive to cefepime. We will follow up on blood cultures. No growth to date. 3.Acute kidney injury. Creatinine is improving. We will continue with gentle IV fluid hydration. 4.Acute on chronic congestive heart failure. Ejection fraction is 12%, severely dilated heart. We will continue with IV strict intake and output. Monitor fluid balance. 5.Hypomagnesemia. We will replace and monitor. 6.Hyponatremia, corrected. 7.Severe pulmonary hypertension. 8.Microcytic hypochromic anemia, likely anemia of chronic disease and iron deficiency. Continue to monitor hemoglobin and hematocrit. Transfuse for hemoglobin less than 7. 9.Mixed hyperlipidemia. Continue statin. 10.Gout, stable. 11.Chronic pain syndrome, stable. 12.Coronary artery disease, [place] artery and [place] heart without angina, stable. 13.Status post pacemaker defibrillator, stable. 14.Generalized osteoarthritis, stable. 15.Morbid obesity BMI of 40. Plan: Continue antibiotics. We will follow up with natural remedy consultant's recommendations. Try to wean off p ressors as tolerated. We will continue anticoagulation. The patient is on steroids which would expl ain the leukocytosis. The patient will likely need continued wound care and depending on her conditi on, IV antibiotics versus p.o. antibiotics. We will defer to Infectious Disease for recommendations. SHEILA Voice ID: [id number] Report ID: [id number]
[2019-01-13] MEDS: HYDROCORTISONE SUC 100 MG INJ IV SCH (22:03)
[2019-01-13] MEDS ORDERED: NOREPINEPHRINE 4mg/D5W 250mL 4 MG/250 ML BAG IV ONE (22:28)
[2019-01-14] MEDS: DOBUTAMINE 250 MG/250 ML BAG IV PRN ×5 (01:00→21:30)
[2019-01-14] MEDS ORDERED: NOREPINEPHRINE 4mg/D5W 250mL 4 MG/250 ML BAG IV ONE (03:53)
[2019-01-14 05:38] LABS: Absolute Lymphocytes (CBC) 0.5 K/uL (0.7-4.9); Basophils % 0.1 % (0-1.3); Hematocrit 29.6 % (36.0-45.0); MPV 9.4 fL (7.6-11.3); RBC Red Blood Cell Count 4.08 M/uL (3.86-4.86)
[2019-01-14 05:54] LABS: Albumin 2.5 g/dL (3.4-5.0); Bilirubin Total 0.4 mg/dL (0.2-1.0); Magnesium 2.3 mg/dL (1.8-2.4); Potassium 5.1 mmol/L (3.5-5.1); Protein, Total 5.1 g/dL (6.4-8.2)
[2019-01-14] MEDS: NA CHLORIDE 0.9% 1,000 ML IV SCH ×3 (06:08→11:00)
[2019-01-14] MEDS: HYDROCORTISONE SUC 100 MG INJ IV SCH ×3 (06:13→20:19)
[2019-01-14] MEDS: ASCORBIC ACID 500 MG TABLET PO SCH (08:09)
[2019-01-14] MEDS: LACTOBACILLUS/ACIDOPHILUS TAB PO SCH (08:09)
[2019-01-14] MEDS: INSULIN GLARGINE 100 UNITS/ML SQ SCH (08:10)
[2019-01-14] MEDS: THIAMINE 200 MG/2 ML INJ IVP SCH (08:10)
[2019-01-14] MEDS: APIXABAN 5 MG TABLET PO SCH ×2 (08:10→20:20)
[2019-01-14] MEDS: INSULIN -REGULAR HUMAN 50 UNIT/0.5 ML ML SQ SCH ×4 (08:11→20:21)
[2019-01-14] MEDS: CEFEPIME/SWI 1gm 10 ML IVP SCH ×2 (08:30→20:21)
[2019-01-14] MEDS ORDERED: LEVALBUTEROL 0.63 MG/3 ML NEB NEB PRN (10:44)
[2019-01-14] MEDS ORDERED: FUROSEMIDE 20 MG/ 2ML VIAL IV ONE (10:47)
--- NOTE | 2019-01-14 11:06 | P.PN ---
Subjective Date of Service: 01/14/19 Primary Care Provider: Dr. Garcia Chief Complaint: Septic shock Subjective: Other (Slowly improving. On 2 vasopressors.) Physical Examination - Vital Signs Temperature: 97.7 F Blood Pressure: 78/47 Pulse: 98 Respirations: 24 Pulse Ox (%): 98 - Physical Exam General: Alert, In no apparent distress, Oriented x3, Cooperative HEENT: Atraumatic Neck: Supple Respiratory: Crackles/rales (to the bases) Cardiovascular: Irregular heart rate/rhythm (Atrial flutter) Gastrointestinal: Normal bowel sounds, Soft and benign, Non-distended Musculoskeletal: Other (Right lower extremity bandaged) Integumentary: Tenderness/swelling (1+ pitting edema to the lower extremities) Neurological: Normal speech, Normal strength at 5/5 x4 extr, Normal tone, Normal affect - Studies Medications List Reviewed: Yes Assessment & Plan Discharge Plan: LTAC Plan to discharge in: 24 Hours Physician Review Additional Text: Impression: Septic shock secondary to right lower extremity cellulitis, culture positive for Klebsiella and Pseudomonas, complicated on vasopressors Acute renal injury Acute on chronic systolic congestive heart failure, ejection fraction 12% with severe pulmonary hypertension Atrial flutter/atrial fibrillation on chronic anti coagulation therapy Hyponatremia Anemia of chronic disease and iron deficiency Diabetes mellitus type 2, insulin-dependent CAD with history of pacemaker/defibrillator Chronic pain Gout Morbid obesity, BMI 42.9 Plan: Septic shock secondary to right lower extremity cellulitis, culture positive for Klebsiella and Pseudomonas, complicated on vasopressors: Patient continues on IV vasopressors. Case discussed with pulmonology/cardiology. Will try to wean off Levophed. Increase dobutamine to maintain the quit blood pressure. Continue hydrocortisone 50 mg IV 3 times a day. Infectious disease recommendation includes IV antibiotic therapy for 2 weeks. Patient currently on cefepime. Will pursue long-term acute care facility placement to continue her care. Case discussed with cardiology, pulmonology, patient and daughter who agree with plan. Advanced directives address in detail with patient. Patient wishes to be do not resuscitate. Acute renal injury: Continue IV fluids. Will decrease IV fluids due to her congestive heart failure. Will monitor and adjust appropriately. Acute on chronic systolic congestive heart failure, ejection fraction 12% with severe pulmonary hypertension: X-ray shows bilateral pleural effusion. Will give Lasix 20 mg IV x1. Will continue to monitor closely. Atrial flutter/atrial fibrillation, on chronic anti coagulation therapy: Patient with pacemaker/defibrillator. Continue with cardiology recommendation. Continue with Eliquis 5 mg 1 pill twice daily. Hyponatremia: Continue to monitor and adjust IV fluids. Anemia of chronic disease and iron deficiency: Will monitor closely. If hemoglobin drops below 7.0, patient may require transfusion. Diabetes mellitus type 2, insulin-dependent: Continue with insulin sliding scale along with basal insulin. Will monitor Accu-Cheks. Will continue to adjust medication. Will check A1c. CAD with history of pacemaker/defibrillator: Overall stable. Chronic pain: Overall stable. Will provide medication as needed. Gout: Medication reviewed. Restart allopurinol. Morbid obesity, BMI 42.9: Continue to address lifestyle modification education. Time Spent Managing Pts Care (In Minutes): 55
[2019-01-14] MEDS: NOREPINEPHRINE 8 MG in Dextrose 5%-Water 500 ML IV PRN (11:15)
--- NOTE | 2019-01-14 12:05 | P.PN ---
Subjective Date of Service: 01/14/19 Primary Care Provider: Dr. Garcia Chief Complaint: Shock Patient's condition is stable she is still requiring high doses of vasopressors due to severe congestive heart failure patient was started on dobutamine still feels short of breath renal function is improving on nasal cannula oxygen Review of Systems General: Weakness Respiratory: Cough, Shortness of Breath Cardiovascular: Edema Physical Examination - Vital Signs Temperature: 97.7 F Blood Pressure: 91/65 Pulse: 98 Respirations: 24 Pulse Ox (%): 98 - Physical Exam General: Alert, In no apparent distress, Oriented x3 Respiratory: Crackles/rales (Some crackles at the bases) Cardiovascular: Edema (3+ edema), Irregular heart rate/rhythm - Studies Medications List Reviewed: Yes Assessment & Plan - Problems (Diagnosis) (1) Shock Current Visit: Yes Status: Acute Plan: Doubt septic shock most likely cardiogenic had ejection fraction he is very poor wound is positive for Klebsiella and Pseudomonas sensitive to cefepime patient is currently on dobutamine and Levophed in addition to steroids would is a level was relatively low renal function is steadily improving IV for rate of fluids has been decreased to 75 cc an hr white count is also declining agree with transfer to LTAC (2) Congestive cardiomyopathy Current Visit: Yes Status: Acute Plan: As dilated cardiomyopathy with severe pulmonary hypertension 4 chamber dilatation Physician Review Additional Text: I
[2019-01-14 13:42] LABS: Anisocytosis 2+; Blood Morphology Comment NOTED (NOT SEEN); Hypochromasia 1+; Ovalocytes 1+; Platelet Estimate ADEQ; Teardrop Cell 1+; Urine White Blood Cell Casts OK
[2019-01-14] MEDS: ONDANSETRON 4 MG/2 ML VIAL IV PRN ×2 (14:00→20:38)
--- NOTE | 2019-01-14 18:58 | PN ---
Subjective: Patient lying in bed, continuing to be on Levophed and dobutamine. Objective: Vital Signs: Blood pressure is 95/50. Lungs: Basal crackles. Heart: S1 and S2 regular. Abdomen: Soft, nontender. Bowel sounds present. Extremities: Right leg erythematous changes and hyperpigmentation with small ulceration. Laboratory Data: Shows WBC 10,000, hemoglobin 8.5, platelets are 214. Chemistry shows sodium 133, p otassium 5.1, chloride 104, bicarb 23, BUN 59, creatinine 1.3, glucose is 200. Assessment And Plan: Sepsis, status post respiratory failure, right lower extremity cellulitis and s tasis ulcer, lymphedema. Continue antibiotic and supportive care. Transfer to long-term acute care. NF/MODL Voice ID: [id number] Report ID: [id number]
[2019-01-14] MEDS: ACETAMINOPHEN 500 MG TAB PO PRN (20:20)
[2019-01-14] MEDS: WATER FOR INJ,STERILE 10 ML IV SCH (20:20)
--- NOTE | 2019-01-14 22:16 | PN ---
Date of Progress Note: 01/14/2019 Ms. Fowler has come in with sepsis. Echocardiogram yesterday showed an ejection fraction of 12%. Sev ere pulmonary hypertension. She already has . Chronic renal insufficiency with creatinine of . We have attempted to diurese her, but her blood pressure remained low at . She is not a candidate for VANESSA inhibitors or beta-blockers at this point. I will go up on her dobu tamine dose and try to get her off the Levophed. There is a plan by Dr. Hartman to a long- term acute facility. We will continue to follow her. KYE/PARAG Voice ID: [id number] Report ID: [id number]
[2019-01-15] MEDS: DOBUTAMINE 250 MG/250 ML BAG IV PRN ×6 (01:46→21:40)
[2019-01-15 04:59] LABS: Absolute Lymphocytes (CBC) 0.5 K/uL (0.7-4.9); Hematocrit 26.5 % (36.0-45.0); Lymphocytes % 4.1 % (15.3-44.8); MPV 9.2 fL (7.6-11.3); RBC Red Blood Cell Count 3.68 M/uL (3.86-4.86)
[2019-01-15 05:18] LABS: Magnesium 2.4 mg/dL (1.8-2.4); Potassium 4.9 mmol/L (3.5-5.1)
[2019-01-15] MEDS: HYDROCORTISONE SUC 100 MG INJ IV SCH (05:21)
[2019-01-15] MEDS: WATER FOR INJ,STERILE 10 ML IV SCH (05:21)
[2019-01-15] MEDS: BISACODYL E.C. 5 MG TAB PO PRN (05:21)
[2019-01-15] MEDS ORDERED: HYDROCORTISONE SUC 100 MG INJ IV SCH (05:31)
[2019-01-15] MEDS ORDERED: FUROSEMIDE 20 MG/ 2ML VIAL IV ONE (06:07)
[2019-01-15] MEDS: ONDANSETRON 4 MG/2 ML VIAL IV PRN ×4 (06:11→22:30)
[2019-01-15] MEDS: NA CHLORIDE 0.9% 1,000 ML IV SCH (07:00)
[2019-01-15] MEDS: INSULIN -REGULAR HUMAN 50 UNIT/0.5 ML ML SQ SCH ×4 (07:30→22:01)
--- NOTE | 2019-01-15 08:29 | RAD REPORT ---
EXAM DESCRIPTION: RAD - Chest Single View - 01/15/2019 6:36 am CLINICAL HISTORY: Follow up CHF Chest pain. COMPARISON: Chest Single View dated 01/14/2019; Chest Single View dated 01/13/2019; Chest Single View dated 01/11/2019; Chest Single View dated 01/10/2019 FINDINGS: Portable technique limits examination quality. Bilateral pleural effusions are present, larger on the left, unchanged. The heart is prominent in siz e with dual lead pacer/ defibrillator device. Right-sided PICC line has tip in the SVC.
--- NOTE | 2019-01-15 08:31 | P.PN ---
Subjective Date of Service: 01/15/19 Primary Care Provider: Dr. Garcia Chief Complaint: Shock No change still hypotensive on low-dose of Levophed and dobutamine attack denied poor appetite Review of Systems General: Weakness Respiratory: Shortness of Breath Cardiovascular: Edema Physical Examination - Vital Signs Temperature: 97 F Blood Pressure: 91/70 Pulse: 101 Respirations: 29 Pulse Ox (%): 97 - Physical Exam General: Alert, Oriented x3, Mild distress Respiratory: Crackles/rales Cardiovascular: Edema, Irregular heart rate/rhythm - Studies Medications List Reviewed: Yes Assessment & Plan - Problems (Diagnosis) (1) Shock Current Visit: Yes Status: Acute Plan: Patient is in shock I have added midodrine on low doses of Levophed continue with dobutamine is been a drop in her hemoglobin agree with blood transfusion Dc steroids renal function stable L tach denied (2) Congestive cardiomyopathy Current Visit: Yes Status: Acute Plan: As dilated cardiomyopathy with severe pulmonary hypertension 4 chamber dilatation (3) Cellulitis Current Visit: Yes Status: Acute Plan: Patient has cellulitis patient has significant drainage multiple organisms isolated change to IV levofloxacin Dc cefepime Qualifiers: Site of cellulitis of extremity: lower extremity Physician Review Additional Text: I
[2019-01-15] MEDS ORDERED: NA CHLORIDE 0.9% 500 ML ONE (09:09)
--- NOTE | 2019-01-15 09:10 | P.PN ---
Subjective Date of Service: 01/15/19 Primary Care Provider: Dr. Garcia Chief Complaint: Shock Subjective: Other (Patient stable this time. No significant complaints noted) Physical Examination - Vital Signs Temperature: 97 F Blood Pressure: 89/54 Pulse: 111 Respirations: 30 Pulse Ox (%): 99 - Physical Exam General: Alert, In no apparent distress, Cooperative HEENT: Atraumatic Neck: Supple Respiratory: Crackles/rales (To the bases bilateral) Cardiovascular: Irregular heart rate/rhythm (Atrial flutter rate slightly elevated) Gastrointestinal: Normal bowel sounds, Soft and benign, Non-distended, No tenderness, No masses, No rebound, No guarding Integumentary: Tenderness/swelling (2+ pitting edema to the lower extremities), Other (Bandage noted to the right lower extremity) Neurological: Normal speech, Normal strength at 5/5 x4 extr, Normal tone - Studies Medications List Reviewed: Yes Assessment & Plan Discharge Plan: LTAC Plan to discharge in: 24 Hours Physician Review Additional Text: Impression: Shock likely cardiogenic on vasopressors Right lower extremity cellulitis, culture positive for Klebsiella, Enterococcus and Pseudomonas Acute renal injury likely with underlying chronic renal disease stage III Acute on chronic systolic congestive heart failure, ejection fraction 12% with severe pulmonary hypertension Atrial flutter/atrial fibrillation on chronic anti coagulation therapy Hyponatremia Anemia of chronic disease and iron deficiency Diabetes mellitus type 2, insulin-dependent CAD with history of pacemaker/defibrillator Chronic pain Gout Morbid obesity, BMI 42.9 Plan: Shock likely cardiogenic on vasopressors: Continue IV vasopressors. Continue to adjust dobutamine to wean off Levophed. Pulmonology discontinued IV hydrocortisone. Midodrine added. Will discuss case with cardiology. Hemoglobin was low this morning. Patient to be transfuse 1 unit. Will need to give IV Lasix after unit given. Continue to monitor closely. Continue to pursue long-term acute care facility placement. Continue to discuss with daughter. Right lower extremity cellulitis, culture positive for Klebsiella, Enterococcus and Pseudomonas: Continue IV Levaquin. Continue wound care. Will discuss with infectious disease on duration of therapy. Acute renal injury likely with underlying chronic renal disease stage III: IV fluids adjusted yesterday. Patient appears to be at baseline renal function. Will consult Nephrology for recommendation. Acute on chronic systolic congestive heart failure, ejection fraction 12% with severe pulmonary hypertension: X-ray shows bilateral pleural effusion. Continue with diuresis but observe closely. Medication adjusted as above. Will discuss with cardiology further. Long-term prognosis poor as per Cardiology. Atrial flutter/atrial fibrillation, on chronic anti coagulation therapy: Patient with pacemaker/defibrillator. Continue with cardiology recommendation. Continue with Eliquis 5 mg 1 pill twice daily. Hyponatremia: Continue to monitor and adjust IV fluids. Anemia of chronic disease and iron deficiency: Hemoglobin below 8.0. Will transfuse 1 unit. Will provide Lasix after unit given. Continue to monitor hemoglobin closely. Diabetes mellitus type 2, insulin-dependent: Continue with insulin sliding scale along with basal insulin. Will monitor Accu-Cheks. Will continue to adjust medication. CAD with history of pacemaker/defibrillator: Overall stable. Chronic pain: Overall stable. Will provide medication as needed. Gout: Medication reviewed. Continue allopurinol. Morbid obesity, BMI 42.9: Continue to address lifestyle modification education. Time Spent Managing Pts Care (In Minutes): 55
--- NOTE | 2019-01-15 10:20 | RAD REPORT ---
EXAM DESCRIPTION: RAD - Chest Single View - 01/14/2019 6:27 am CLINICAL HISTORY: The patient is 68 years old and is Female; PICC Placement TECHNIQUE: Frontal view of the chest. COMPARISON: No relevant prior studies available. FINDINGS: LUNGS: Bibasilar opacities are noted. No consolidation. PLEURAL SPACE: Blunting of bilateral costophrenic angles are noted. No pneumothorax. HEART: The cardiac silhouette is enlarged. MEDIASTINUM: Unremarkable. BONES/JOINTS: Unremarkable. VASCULATURE: A right upper extremity PICC is present with the tip in the SVC. TUBES, LINES AND DEVICES: A triple lead left-sided pacemaker is noted. IMPRESSION: 1. A right upper extremity PICC is present with the tip in the SVC. 2. Cardiomegaly with findings suggestive of bilateral pleural effusions and likely bibasilar atelec tasis Electronically signed by: Jennifer Johnson MD 01/14/2019 6:40 AM CDT Due to temporary technical issues with the PACS/Fluency reporting system, reports are being signed by the in house radiologist as a courtesy to ensure prompt reporting. The interpreting radiologist is f ully responsible for the content of the report.
[2019-01-15 11:18] LABS: Urine Protein/Creatinine Ratio 0.82 ratio (<0.15)
[2019-01-15] MEDS: APIXABAN 5 MG TABLET PO SCH ×2 (11:34→21:41)
[2019-01-15] MEDS: LACTOBACILLUS/ACIDOPHILUS TAB PO SCH (11:34)
[2019-01-15] MEDS: MIDODRINE HCL 5 MG TABLET PO SCH ×3 (11:34→21:41)
[2019-01-15] MEDS: INSULIN GLARGINE 100 UNITS/ML SQ SCH (11:34)
[2019-01-15] MEDS: Levofloxacin500mg IV 500 MG/100 ML BAG IV SCH (11:35)
[2019-01-15] MEDS: ALLOPURINOL 100 MG TAB PO SCH (11:41)
[2019-01-15] MEDS: FUROSEMIDE 100 MG in NA CHLORIDE 0.9% 90 ML IV SCH ×2 (13:47→21:41)
[2019-01-15 15:49] LABS: Arterial Blood Carboxyhemoglob 2.5 % (0-1.5); Blood Gas Oxyhemoglobin 95.6 % (94-97); Blood O2 Saturation 98.4 % (92-98.5)
--- NOTE | 2019-01-15 16:05 | CON ---
Date of Consultation: 01/15/2019 Reason For Consultation: Anasarca, elevated BUN and creatinine, fluid overload. History Of Present Illness: This is a pleasant unfortunate 68-year-old female with significant past medical history of coronary artery disease, status post NJ with PTCA back in 2008, complicated with c ongestive heart failure, ejection fraction of 12%, diabetes, hypertension, hyperlipidemia, arthritis. Patient came to the hospital because of increase in swelling in her leg with erythema on the right lower leg and oozing. Patient was admitted to the hospital with cardiogenic shocks, placed on Levoph ed and dobutamine. Kidney function gradually started rising up. For that reason, we have been consu lted. Patient denied any nausea, any vomiting. Has significant shortness of breath. Upon admission , her creatinine was 2.4. Currently, gradually trending down to 1.3. Patient is significantly over volume. Reviewing the record for the patient, echocardiogram has been done on showing ejection fraction of 12%. Patient has been on midodrine, Levophed, and dobutamine. Patient was scheduled for transfusion today. Reviewing the record for the patient kidney function. I do not have any previou s lab data before. Again, when patient was admitted to the hospital, creatinine 2.4, GFR of 19. Cur rently creatinine down to 1.3 with GFR of 38. Past Medical History: 1.Hypertension. 2.Hyperlipidemia. 3.Diabetes, complicated with neuropathy. 4.Coronary artery disease, complicated with NJ, status post PTCA back in 2008, complicated with angeline estive heart failure. Ejection fraction of 12%, as by echocardiogram on this admission. Past Surgical History: 1.PTCA. 2.ICD placement. 3.Adenectomy. 4.. Allergies: NO KNOWN DRUGS ALLERGY. Home Medications: 1.Insulin. 2.Vitamin C. 3.Cholecalciferol. 4.Lisinopril. 5.Torsemide. 6.Isosorbide. 7.Carvedilol. 8.Aldactone. 9.Eliquis. 10.Allopurinol. Current medications in the hospital: Allopurinol, Eliquis, Levophed, insulin, Levaquin, midodrine, a nd dobutamine. Review of Systems: Head and Neck: No red eye. No ear pain. GI: No nausea. No vomiting. : No polyuria. No dysuria. No hematuria. BUNDLE BREAKER: No vaginal discharge. Respiratory: Has shortness of breath. Cardiovascular: Has anasarca, has orthopnea. Musculoskeletal: No joint pain. Endocrine: No polydipsia. Skin: No rash. Neurologic: Has neuropathy. Physical Examination: General: When I saw the patient, patient is lying in bed. Vital Signs: Blood pressure of 101/67, pulse of 99. Chest: Crackles bilateral. Heart: S1, S2. Systolic murmur. Abdomen: Soft, nontender. Dullness on the suprapubic area. Extremities: +3 edema. Dressing on the right leg. Neurologic: Alert and oriented x3. No focal. Laboratory Data: Sodium 134, potassium 4.9, bicarb 23, BUN 53, creatinine 1.3, GFR of 38, calcium 7. 5, magnesium 2.4. SPEP is still pending. TSH pending. Cortisol within normal limits. H and H of 7 .8/26.5. Urinalysis, PC ratio 0.8. Negative for infection. Current medication as above. Chest x-ray; cardiomegaly with congestion. Echocardiogram, ejection fraction of 12%. Assessment And Plan: 1.Acute kidney injury secondary to cardiorenal, poor perfusion, acute tubular necrosis, over volume. I am going to go ahead and start the patient on Lasix drip. We will go ahead and get renal ultraso und given the finding on the dullness of the suprapubic area. We will go ahead and send for SPEP to rule out any light chain disease. We will start the patient on Lasix drip and we will follow up the patient. 2.Anemia secondary to renal failure/GI loss. Patient is receiving 1 unit of blood today. We will g o ahead and send for full anemia workup. Given the renal failure, light chain disease needs to be ru led out, especially with the presence of congestive heart failure. 3.Cardiogenic shock, over volume. Continue current pressor, dobutamine and Levophed. We will add L asix drip to establish better volume control. We will follow up with Cardiology. 4.Respiratory failure secondary to over volume as above. Patient will benefit from LTAC to establis h better stabilization of her kidney function and to establish better volume status for the patient. ERNESTINA/MODL Voice ID: [id number] Report ID: [id number]
--- NOTE | 2019-01-15 17:20 | PN ---
Subjective: Patient lying in bed, continuing to have shortness of breath and swelling in her all 4 e xtremities. Objective: Vital Signs: Temperature 97, pulse 87, respirations 34, blood pressure 95/57. Continues to stay on vasopressors. Lungs: Basal crackles. Heart: S1, S2 regular. Abdomen: Soft, nontender. Bowel sounds present. Extremities: Lower extremity 3+ edema. Laboratory Data: WBC 11,700, hemoglobin 7.8, platelets 213. Chemistry shows sodium 134, potassium 4 .9, chloride 104, bicarb 23, BUN 54, creatinine 1.39, glucose 121. Micro data: Patient is growing Pseudomonas, Klebsiella, Enterococcus faecalis. Blood cultures are n egative. Assessment And Plan: Right lower extremity cellulitis and stasis ulcer, congestive heart failure, re spiratory failure. Continue antibiotic and supportive care. Patient has been switched to Levaquin. We will follow patient closely. NF/MODL Voice ID: [id number] Report ID: [id number]
[2019-01-15] MEDS ORDERED: LACTULOSE 20 GM/30 ML UCUP PO PRN (18:18)
[2019-01-15 18:19] LABS: Hematocrit 30.8 % (36.0-45.0)
[2019-01-15] MEDS: NOREPINEPHRINE 8 MG in Dextrose 5%-Water 500 ML IV PRN (18:19)
--- NOTE | 2019-01-15 20:13 | RAD REPORT ---
EXAM DESCRIPTION: US - Renal Ultrasound-Complete - 01/15/2019 7:56 pm CLINICAL HISTORY: . Acute renal insufficiency COMPARISON: None. FINDINGS: The right kidney measures 10 cm with a normal echotexture. The left kidney measures 10 cm with a normal echotexture. Mild cortical thinning bilaterally Hydronephrosis is not seen. Bladder is decompressed and not evaluated IMPRESSION: Mild bilateral renal cortical thinning.
[2019-01-16] MEDS: DOBUTAMINE 250 MG/250 ML BAG IV PRN ×4 (00:51→11:01)
[2019-01-16] MEDS: ONDANSETRON 4 MG/2 ML VIAL IV PRN ×3 (03:21→17:55)
[2019-01-16 05:55] LABS: Albumin 2.6 g/dL (3.4-5.0); Ferritin 14.4 ng/mL (8-388); Folic Acid, (Folate) 7.6 ng/mL (3.1-17.5); Magnesium 2.3 mg/dL (1.8-2.4); Phosphorus 2.5 mg/dL (2.5-4.9); Potassium 4.8 mmol/L (3.5-5.1)
[2019-01-16 05:57] LABS: Absolute Lymphocytes (CBC) 0.5 K/uL (0.7-4.9); Basophils % 0.1 % (0-1.3); Hematocrit 29.5 % (36.0-45.0); MPV 9.4 fL (7.6-11.3); RBC Red Blood Cell Count 4.01 M/uL (3.86-4.86)
[2019-01-16] MEDS: FUROSEMIDE 100 MG in NA CHLORIDE 0.9% 90 ML IV SCH ×2 (07:13→16:18)
[2019-01-16] MEDS: INSULIN -REGULAR HUMAN 50 UNIT/0.5 ML ML SQ SCH ×4 (07:30→20:17)
[2019-01-16 08:16] LABS: Anisocytosis 3+; Blood Morphology Comment NOTED (NOT SEEN); Macrocytosis 1+; Platelet Estimate ADEQ
[2019-01-16 08:17] LABS: Basophilic Stippling 1+; Ovalocytes 1+
--- NOTE | 2019-01-16 08:26 | P.PN ---
Subjective Date of Service: 01/16/19 Primary Care Provider: Dr. Garcia Chief Complaint: Shock Patient is still on vasopressors and dobutamine on a Lasix drip short of breath Review of Systems General: Weakness Respiratory: Shortness of Breath Physical Examination - Vital Signs Temperature: 98 F Blood Pressure: 101/32 Pulse: 94 Respirations: 24 Pulse Ox (%): 97 - Physical Exam General: Alert, Mild distress Respiratory: Clear to auscultation bilaterally Cardiovascular: Normal S1 S2, Edema - Studies Microbiology Data (last 24 hrs): 01/10/19 14:40 Blood - Blood Aerobic Blood Culture - Final No growth in 5 days. 01/10/19 14:40 Blood - Blood Anaerobic Blood Culture - Final No growth in 5 days. 01/10/19 13:50 Blood - Blood Aerobic Blood Culture - Final No growth in 5 days. 01/10/19 13:50 Blood - Blood Anaerobic Blood Culture - Final No growth in 5 days. Medications List Reviewed: Yes Assessment & Plan - Problems (Diagnosis) (1) Shock Current Visit: Yes Status: Acute Plan: Patient is still in shock with on vasopressors no change on a Lasix drip hemoglobin is stable resume BiPAP (2) Congestive cardiomyopathy Current Visit: Yes Status: Acute Plan: As dilated cardiomyopathy with severe pulmonary hypertension 4 chamber dilatation (3) Cellulitis Current Visit: Yes Status: Acute Plan: Patient has cellulitis patient has significant drainage multiple organisms isolated change to IV levofloxacin no change Qualifiers: Site of cellulitis of extremity: lower extremity Physician Review Additional Text: Impression: Shock likely cardiogenic on vasopressors Right lower extremity cellulitis, culture positive for Klebsiella, Enterococcus and Pseudomonas Acute renal injury likely with underlying chronic renal disease stage III Acute on chronic systolic congestive heart failure, ejection fraction 12% with severe pulmonary hypertension Atrial flutter/atrial fibrillation on chronic anti coagulation therapy Hyponatremia Anemia of chronic disease and iron deficiency Diabetes mellitus type 2, insulin-dependent CAD with history of pacemaker/defibrillator Chronic pain Gout Morbid obesity, BMI 42.9 Plan: Shock likely cardiogenic on vasopressors: Continue IV vasopressors. Continue to adjust dobutamine to wean off Levophed. Pulmonology discontinued IV hydrocortisone. Midodrine added. Will discuss case with cardiology. Hemoglobin was low this morning. Patient to be transfuse 1 unit. Will need to give IV Lasix after unit given. Continue to monitor closely. Continue to pursue long-term acute care facility placement. Continue to discuss with daughter. Right lower extremity cellulitis, culture positive for Klebsiella, Enterococcus and Pseudomonas: Continue IV Levaquin. Continue wound care. Will discuss with infectious disease on duration of therapy. Acute renal injury likely with underlying chronic renal disease stage III: IV fluids adjusted yesterday. Patient appears to be at baseline renal function. Will consult Nephrology for recommendation. Acute on chronic systolic congestive heart failure, ejection fraction 12% with severe pulmonary hypertension: X-ray shows bilateral pleural effusion. Continue with diuresis but observe closely. Medication adjusted as above. Will discuss with cardiology further. Long-term prognosis poor as per Cardiology. Atrial flutter/atrial fibrillation, on chronic anti coagulation therapy: Patient with pacemaker/defibrillator. Continue with cardiology recommendation. Continue with Eliquis 5 mg 1 pill twice daily. Hyponatremia: Continue to monitor and adjust IV fluids. Anemia of chronic disease and iron deficiency: Hemoglobin below 8.0. Will transfuse 1 unit. Will provide Lasix after unit given. Continue to monitor hemoglobin closely. Diabetes mellitus type 2, insulin-dependent: Continue with insulin sliding scale along with basal insulin. Will monitor Accu-Cheks. Will continue to adjust medication. CAD with history of pacemaker/defibrillator: Overall stable. Chronic pain: Overall stable. Will provide medication as needed. Gout: Medication reviewed. Continue allopurinol. Morbid obesity, BMI 42.9: Continue to address lifestyle modification education.
[2019-01-16] MEDS: Levofloxacin500mg IV 500 MG/100 ML BAG IV SCH (09:37)
[2019-01-16] MEDS: INSULIN GLARGINE 100 UNITS/ML SQ SCH (09:38)
[2019-01-16] MEDS: ALLOPURINOL 100 MG TAB PO SCH (09:38)
[2019-01-16] MEDS: MIDODRINE HCL 5 MG TABLET PO SCH ×3 (09:38→20:18)
[2019-01-16] MEDS: LACTOBACILLUS/ACIDOPHILUS TAB PO SCH (09:38)
[2019-01-16] MEDS: APIXABAN 5 MG TABLET PO SCH ×2 (09:38→20:17)
--- NOTE | 2019-01-16 10:30 | P.PN ---
Subjective Date of Service: 01/16/19 Primary Care Provider: Dr. Garcia Chief Complaint: Shock Subjective: Other (Patient stable this time. Edema to the lower extremity slightly improved. Patient remains on several IV drips) Physical Examination - Vital Signs Temperature: 98 F Blood Pressure: 106/60 Pulse: 96 Respirations: 22 Pulse Ox (%): 96 - Physical Exam General: Alert, Cooperative, Other (Appears depressed) HEENT: Atraumatic Neck: Supple Respiratory: Crackles/rales (To the bases) Cardiovascular: Irregular heart rate/rhythm (Atrial flutter, rate controlled) Gastrointestinal: Normal bowel sounds, Non-distended, No masses, No rebound, No guarding Integumentary: Tenderness/swelling (Edema to the lower extremities slightly improved. Right lower extremity bandaged) Neurological: Normal speech, Normal strength at 5/5 x4 extr, Normal tone, Abnormal affect (Appears depressed) - Studies Microbiology Data (last 24 hrs): 01/10/19 14:40 Blood - Blood Aerobic Blood Culture - Final No growth in 5 days. 01/10/19 14:40 Blood - Blood Anaerobic Blood Culture - Final No growth in 5 days. 01/10/19 13:50 Blood - Blood Aerobic Blood Culture - Final No growth in 5 days. 01/10/19 13:50 Blood - Blood Anaerobic Blood Culture - Final No growth in 5 days. Medications List Reviewed: Yes Assessment & Plan Discharge Plan: LTAC Plan to discharge in: Greater than 2 days Physician Review Additional Text: Impression: Shock likely cardiogenic on vasopressors Right lower extremity cellulitis, culture positive for Klebsiella, Enterococcus and Pseudomonas Acute renal injury likely with underlying chronic renal disease stage III Acute on chronic systolic congestive heart failure, ejection fraction 12% with severe pulmonary hypertension/bilateral pleural effusion Atrial flutter/atrial fibrillation on chronic anti coagulation therapy Hyponatremia Anemia of chronic disease and iron deficiency Diabetes mellitus type 2, insulin-dependent CAD with history of pacemaker/defibrillator Chronic pain Gout Morbid obesity, BMI 42.9 Plan: Shock likely cardiogenic on vasopressors: Patient remains on IV vasopressors. Dobutamine and Levophed continue to be titrated. Patient also on midodrine. Case discussed with cardiology. Patient likely with poor prognosis. Patient likely not a candidate for heart transplant. Will discuss with her outpatient tape weaver about options of care. Case discussed with pulmonology yesterday. Patient may require BiPAP. Nephrology continues to adjust IV Lasix. Spoke with medical insurance director, patient not a candidate for LTAC at this time. Will consider LTAC once more stable. Other options include the possibility of hospice if her condition continues to decline. Will plan for patient/family conference later today to discuss current plan of care and options for the near future. Patient with overall poor prognosis long-term. Right lower extremity cellulitis, culture positive for Klebsiella, Enterococcus and Pseudomonas: Continue IV antibiotic therapy. Continue wound care. Acute renal injury likely with underlying chronic renal disease stage III: IV Lasix adjusted by Nephrology. Acute on chronic systolic congestive heart failure, ejection fraction 12% with severe pulmonary hypertension/bilateral pleural effusion: Continue with IV Lasix drip. Continue monitor chest x-ray. Patient may require BiPAP. Case discussed with cardiology. Long-term prognosis poor as per Cardiology. Will discuss with her outpatient tape weaver for possible options of care Atrial flutter/atrial fibrillation, on chronic anti coagulation therapy: Patient with pacemaker/defibrillator. Continue with cardiology recommendation. Continue with Eliquis 5 mg 1 pill twice daily. Hyponatremia: Nephrology continues to adjust medications. Anemia of chronic disease and iron deficiency: Patient given 1 unit of blood yesterday. Hemoglobin stable at this time. Diabetes mellitus type 2, insulin-dependent: Continue with insulin sliding scale along with basal insulin. Will monitor Accu-Cheks. Will continue to adjust medication. Encourage oral intake. CAD with history of pacemaker/defibrillator: Overall stable. Chronic pain: Overall stable. Will provide medication as needed. Gout: Medication reviewed. Continue allopurinol. Morbid obesity, BMI 42.9: Continue to address lifestyle modification education. Time Spent Managing Pts Care (In Minutes): 55
--- NOTE | 2019-01-16 10:38 | P.PN ---
Subjective Date of Service: 01/16/19 Primary Care Provider: Dr. Garcia Chief Complaint: Shock Subjective: Worsening Pt with CHF admitted for SOB, had MAY Today feels worse and want to hold treatment Goal of care verification with family Hyponatremia due to fluid overload and hypotonic fluids will increase lasix drip and try to switch drip fluid to NS still on levophed and dobutamine Physical Examination - Vital Signs Temperature: 98 F Blood Pressure: 106/60 Pulse: 96 Respirations: 22 Pulse Ox (%): 96 - Physical Exam General: Oriented x3, Moderate distress HEENT: Atraumatic Neck: Supple, Without JVD or thyroid abnormality Respiratory: Diminished Cardiovascular: Regular rate/rhythm, No rubs, No murmurs, Edema Gastrointestinal: Normal bowel sounds - Studies Microbiology Data (last 24 hrs): 01/10/19 14:40 Blood - Blood Aerobic Blood Culture - Final No growth in 5 days. 01/10/19 14:40 Blood - Blood Anaerobic Blood Culture - Final No growth in 5 days. 01/10/19 13:50 Blood - Blood Aerobic Blood Culture - Final No growth in 5 days. 01/10/19 13:50 Blood - Blood Anaerobic Blood Culture - Final No growth in 5 days. Medications List Reviewed: Yes Assessment And Plan - Current Problems (Diagnosis) (1) MAY (acute kidney injury) Current Visit: Yes Status: Acute - Plan Acute kidney injury Due to cardiorenal and ATN improving cr down from 2.4 to 1.4 UPC 0.8, US no hydro meghna dose meds will increase lasix drip and add metolazone Cardiogenic shock, Pt S/P AICD EF 12 % on dobutamine and levophed lasix as above Hyponatremia due to fluid overload and hypotonic fluid will increase lasix drip and add metolazone will try to change fluid to NS F/u SPEP Anemia low iron stores will start on PO iron Prognosis guarded
[2019-01-16] MEDS ORDERED: METOLAZONE 5 MG TABLET PO ONE (11:00)
[2019-01-16] MEDS: LORazepam 2 MG/ML VIAL IV PRN ×3 (12:59→22:40)
[2019-01-16] MEDS ORDERED: NA CHLORIDE 0.9% IV PRN ×3 (13:51→17:08)
[2019-01-16] MEDS ORDERED: DOBUTAMINE IV PRN (13:51)
[2019-01-16] MEDS: NA CHLORIDE 0.9% IV PRN ×3 (14:10→19:51)
[2019-01-16] MEDS: DOBUTAMINE IV PRN ×3 (14:10→19:51)
[2019-01-16] MEDS ORDERED: NOREPINEPHRINE IV PRN ×2 (14:14→17:08)
--- NOTE | 2019-01-16 21:11 | PN ---
Date of Progress Note: 01/15/2019 Subjective: Ms. Fowler remains rather very critical. She remains hypotensive on Levophed and dobutam ine. She has a history of defibrillator, pacemaker, atrial fibrillation, severe acute on chronic sys tolic congestive heart failure with an ejection fraction of 15%. Has been seen by Nephrology. She i s on Lasix drip. Diuresis has improved slightly. Continue present management. KYE/PARAG Voice ID: [id number] Report ID: [id number]
--- NOTE | 2019-01-16 21:17 | PN ---
Date of Progress Note: 01/16/2019 History Of Present Illness: Ms. Fowler was placed yesterday on Lasix drip by Nephrology. Diuresis reich s improved. However, her blood pressure is still an issue, on dobutamine and Levophed. There was a discussion apparently between the family and Dr. Hartman and there was a plan for hospice care. I agr ee with her present management for now. I will be available for questions if the need arises. KYE/PARAG Voice ID: [id number] Report ID: [id number]
[2019-01-16] MEDS ORDERED: LORazepam 2 MG/ML VIAL IV PRN (21:55)
[2019-01-16] MEDS: FENTANYL CITR 100 MCG/2 ML IV PRN (22:05)
[2019-01-17] MEDS: LORazepam 2 MG/ML VIAL IV PRN (02:05)
[2019-01-17] MEDS: FUROSEMIDE 100 MG in NA CHLORIDE 0.9% 90 ML IV SCH (03:00)
[2019-01-17] MEDS: FENTANYL CITR 100 MCG/2 ML IV PRN (07:15)
[2019-01-17] MEDS: INSULIN -REGULAR HUMAN 50 UNIT/0.5 ML ML SQ SCH (07:30)
--- NOTE | 2019-01-17 07:44 | P.PN ---
Date of Service: 01/17/19 Patient has decided to withdraw care. Patient is requesting for us to turn off the Levophed and dobutamine. Patient is oriented to person place and time and is able to make her own decisions. The family is at bedside and are respectful of her decision. Levophed and dobutamine will be turned off. Supportive care at this time.
--- NOTE | 2019-01-17 08:41 | P.PN ---
Subjective Date of Service: 01/17/19 Primary Care Provider: Dr. Garcia Chief Complaint: Shock Subjective: Other (Patient on supportive care. Blood pressure is low. No response to pain.) Physical Examination - Vital Signs Temperature: 97.1 F Blood Pressure: 48/28 Pulse: 76 Respirations: 19 Pulse Ox (%): 100 - Physical Exam General: Other (Obtunded.) HEENT: Atraumatic Respiratory: Crackles/rales (Bilateral) Cardiovascular: Irregular heart rate/rhythm (A flutter) Integumentary: Tenderness/swelling (Edema to the lower extremities bilateral) - Studies Medications List Reviewed: Yes Assessment & Plan Discharge Plan: Other (Hospice) Plan to discharge in: 24 Hours - Code Status/Comfort Care Code Status Assessed: Yes (This was readdressed yesterday. Patient is do not resuscitate) Physician Review Additional Text: Impression: Shock likely cardiogenic on vasopressors Right lower extremity cellulitis, culture positive for Klebsiella, Enterococcus and Pseudomonas Acute renal injury likely with underlying chronic renal disease stage III Acute on chronic systolic congestive heart failure, ejection fraction 12% with severe pulmonary hypertension/bilateral pleural effusion Atrial flutter/atrial fibrillation on chronic anti coagulation therapy Hyponatremia Anemia of chronic disease and iron deficiency Diabetes mellitus type 2, insulin-dependent CAD with history of pacemaker/defibrillator Chronic pain Gout Morbid obesity, BMI 42.9 Plan: Shock likely cardiogenic: Discussed at length yesterday with patient and family concerning her prognosis and plan of care. After long discussion patient decided to withdrawal care as her prognosis is poor. Patient is DNR. Last night vasopressors were discontinued. Comfort measures to be provided. Will continue with comfort measures at this time. Will need to consider inpatient hospice the patient continues to survive after today. Patient will likely continue to decline within the next 12-24 hr. I have discussed current plan of care with pulmonology, cardiology and nephrology. All are in agreement with comfort measures and plan of care. Right lower extremity cellulitis, culture positive for Klebsiella, Enterococcus and Pseudomonas: Will discontinue IV antibiotic therapy. Continue comfort measures Acute renal injury likely with underlying chronic renal disease stage III with acute tubular necrosis/cardiorenal syndrome: Discontinue IV Lasix and continue with comfort measures only. Acute on chronic systolic congestive heart failure, ejection fraction 12% with severe pulmonary hypertension/bilateral pleural effusion: Discontinue Lasix. Continue comfort measures only. Atrial flutter/atrial fibrillation, on chronic anti coagulation therapy: Patient with pacemaker/defibrillator. Discontinue Eliquis. Comfort measures only. Hyponatremia: Continue as above Anemia of chronic disease and iron deficiency: Continue as above. Diabetes mellitus type 2, insulin-dependent: Continue comfort measures. CAD with history of pacemaker/defibrillator: Continue as above. Chronic pain: Continue comfort measures. Gout: Continue comfort measure. Morbid obesity, BMI 42.9: Continue as above. Time Spent Managing Pts Care (In Minutes): 55
[2019-01-17] MEDS ORDERED: FERROUS SULFATE 325 MG TAB PO SCH (09:00)
--- NOTE | 2019-01-17 10:06 | P.DS ---
Admission Date: 01/10/19 Discharge Date: 01/17/19 Primary Care Provider: Cardiology-Dr. Garcia([place]) Disposition: Discharge Condition: Reason for Admission: Shock Consultations: Nephrology-Dr. Sandra/[place] Pulmonary-Dr. Cooper Cardiology-Dr. Betancur/[place] Infectious disease-Dr. Billingsley Procedures: CXR: COMPARISON: Chest Single View dated 01/14/2019; Chest Single View dated 2018; Chest Single View dated 01/11/2019; Chest Single View dated 01/10/2019 FINDINGS: Portable technique limits examination quality. Bilateral pleural effusions are present, larger on the left, unchanged. The heart is prominent in size with dual lead pacer/ defibrillator device. Right- sided PICC line has tip in the SVC. Renal US: FINDINGS: The right kidney measures 10 cm with a normal echotexture. The left kidney measures 10 cm with a normal echotexture. Mild cortical thinning bilaterally Hydronephrosis is not seen. Bladder is decompressed and not evaluated IMPRESSION: Mild bilateral renal cortical thinning. ECHO: EF 12% LEFT VENTRICULAR WALL MOTION: ANTERIOR AKINESIS, HYPOKINESIS ELSEWHERE. DOPPLER/COLOR FLOW: MILD MITRAL AND TRICUSPID REGURGITATION. SEVERE PULMONARY HYPERTENSION, ESTIMATED RIGHT VENTRICULAR SYSTOLIC PRESSURE >65mmHg. COMMENTS: FOUR CHAMBER DILATATION. SEVERELY DEPRESSED LEFT VENTRICULAR EJECTION FRACTION WITH WALL MOTION ABNORMALITY. MILD MITRAL AND TRICUSPID REGURGITATION. SEVERE PULMONARY HYPERTENSION. Medical Problem List: Cardiogenic Shock complicated with history of CAD/Pacemaker/Defibrillator/CHF Right lower extremity cellulitis, culture positive for Klebsiella, Enterococcus and Pseudomonas Acute renal injury likely with underlying chronic renal disease stage III with acute tubular necrosis/cardiorenal syndrome Acute on chronic systolic congestive heart failure, ejection fraction 12% with severe pulmonary hypertension/bilateral pleural effusion Atrial flutter/atrial fibrillation on chronic anti coagulation therapy Hyponatremia likely hypervolemic in nature Anemia of chronic disease and iron deficiency Diabetes mellitus type 2, insulin-dependent CAD with history of pacemaker/defibrillator Chronic pain Gout Morbid obesity, BMI 42.9 Brief History of Present Illness: 68-year-old female with multiple medical problems including diabetes, CAD, congestive heart failure, hyperlipidemia, atrial fibrillation, and pacemaker/defibrillator. Patient reported increasing ulceration and edema to the right lower extremity over several weeks. This had gotten worse prior to coming in. Erythema, pain and swelling was noted. In the ER patient was found to have hypertension related to shock. Workup also revealed elevated white count, abnormal renal function. Patient was admitted for shock. Hospital Course: Please refer to daily notes for more details concerning her stay. Patient presented with right lower extremity cellulitis with shock. Patient was hypotensive and required aggressive fluids with vasopressors. Initially septic shock was suspected. Pulmonology, cardiology, nephrology, and infectious disease were consulted to also address multiple medical issues including acute renal injury with underlying chronic renal disease stage III with acute tubular necrosis/cardiorenal syndrome, acute on chronic systolic congestive heart failure with severe hypertension, bilateral pleural effusion, atrial flutter/atrial fibrillation on chronic anti coalition therapy, hypervolemic hyponatremia, diabetes mellitus insulin dependent, and anemia of chronic disease with iron deficiency. During the course of her stay patient continued with IV antibiotic therapy, vasopressor therapy, IV fluids, and medication for diabetes/atrial fibrillation. Cardiogenic shock was eventually suspected and treated. Patient continued on 2 vasopressors to maintain blood pressure without significant improvement. Fluids were adjusted. At one point patient required IV Lasix due to increasing edema and bilateral pleural effusions. Wound culture was identified as Klebsiella, Enterococcus and Pseudomonas. Echocardiogram performed in her stay showed ejection fraction of 12% with severe pulmonary hypertension. As her condition continued to decline without significant improvement advanced directives and plan of care was discussed at length with patient along with family present. Patient understood that her prognosis was poor. There was some consideration of sending the patient to a long-term acute care facility but the patient remained in an acute status. Patient desired to be do not resuscitate. She eventually wanted to withdrawal care with the understanding that her prognosis was poor. Vasopressors, antibiotics were discontinued. Comfort care measures were provided. The patient peacefully at 9:35 a.m. on 01/17/2019. Family was present. October the patient rest in peace. Vital Signs/Physical Exam: Temp Pulse Resp BP Pulse Ox 97.1 F 76 19 48/28 L 100 01/17/19 08:41 01/17/19 08:41 01/17/19 08:41 01/17/19 08:41 01/17/19 08:41 Other Physical/Emotional Findings: Patient . Laboratory Data at Discharge: WBC 13.5 K/uL (4.3-10.9) H D 01/16/19 05:10 Hgb 8.9 g/dL (12.0-15.0) L 01/16/19 05:10 Hct 29.5 % (36.0-45.0) L 01/16/19 05:10 Plt Count 201 K/uL (152-406) 01/16/19 05:10 PT 23.8 SECONDS (9.5-12.5) H 01/10/19 13:50 INR 2.07 01/10/19 13:50 APTT 30.5 SECONDS (24.3-36.9) 01/10/19 13:50 Sodium 130 mmol/L (136-145) L 01/16/19 05:10 Potassium 4.8 mmol/L (3.5-5.1) 01/16/19 05:10 BUN 52 mg/dL (7-18) H 01/16/19 05:10 Creatinine 1.46 mg/dL (0.55-1.3) H 01/16/19 05:10 Glucose 96 mg/dL (74-106) 01/16/19 05:10 Phosphorus 2.5 mg/dL (2.5-4.9) 01/16/19 05:10 Magnesium 2.3 mg/dL (1.8-2.4) 01/16/19 05:10 Total Bilirubin 0.4 mg/dL (0.2-1.0) 01/14/19 05:15 AST 18 U/L (15-37) 01/14/19 05:15 ALT 54 U/L (12-78) 01/14/19 05:15 Alkaline Phosphatase 45 U/L (45-117) 01/14/19 05:15 Lipase 259 U/L (73-393) 01/10/19 13:50 Home Medications: Acetaminophen [Tylenol 8 Hour] 1,950 mg PO BEDTIME 11/21/17 Allopurinol [Zyloprim] 100 mg PO DAILY 11/21/17 Apixaban [Eliquis] 5 mg PO BID 11/21/17 Atorvastatin Calcium [Lipitor] 40 mg PO BEDTIME 11/21/17 Carvedilol [Coreg] 6.25 mg PO BID 11/21/17 Insulin Detemir [Levemir*] 14 unit SQ DAILY 11/21/17 Isosorbide Mononitrate [Isosorbide Mononitrate ER] 15 mg PO BID 11/21/17 Lactobacillus Acidophilus [Acidophilus] 1 each PO DAILY 11/21/17 Lisinopril [Prinivil] 5 mg PO BEDTIME 11/21/17 Spironolactone [Aldactone] 25 mg PO DAILY 11/21/17 Torsemide [Demadex] 40 mg PO BID 11/21/17 Zinc 50 mg PO DAILY 11/21/17 Ascorbic Acid [Vitamin C*] 1 tab PO DAILY 01/10/19 Cholecalciferol (Vitamin D3) [Vitamin D 400 IU TAB*] 1 tab PO DAILY 01/10/19 Cyanocobalamin (Vitamin B-12) [Vitamin B12] 1 tab PO DAILY 01/10/19 Prolia 60 mg IM Q6M 01/10/19 Patient Discharge Instructions: 1. Patient . May she rest in peace. 2. Continue with process of sending patient to home. Time spent managing pt's care (in minutes): 55
[2019-01-19 18:38] LABS: Albumin, (SPE) 2.7 g/dL (3.8-4.8); Alpha-1-Globulins 0.4 g/dL (0.2-0.3); Alpha-2-Globulins 0.7 g/dL (0.5-0.9); Gamma Globulins 0.5 g/dL (0.8-1.7); INTERPRETATION REPORT
[2019-01-20 08:58] LABS: Vitamin D 1,25-Dihydroxy Total <8 pg/mL (18-72); Vitamin D,1,25-OH2, D2 <8 pg/mL
== END 2019-01-17 13:35 | disposition expired | DRG 871 ==
LOC: ER 13:06 → ERHOLD 14:53 → 3RD-ICU 17:42
PROVIDERS: ADMIT Family Medicine; ATTEND Family Medicine
PROC: 02HV33Z Insertion of Infusion Device into Superior Vena Cava, Percutaneous Approach (ICD-10-PCS; 2019-01-14)
PROC: 5A09357 Assistance with Respiratory Ventilation, Less than 24 Consecutive Hours, Continuous Positive Airway Pressure (ICD-10-PCS; principal; 2019-01-15)
DX: A41.52 Sepsis due to Pseudomonas (principal); R57.0 Cardiogenic shock; I50.23 Acute on chronic systolic (congestive) heart failure; N17.0 Acute kidney failure with tubular necrosis; R65.21 Severe sepsis with septic shock; J96.21 Acute and chronic respiratory failure with hypoxia; E87.1 Hypo-osmolality and hyponatremia; E87.2 Acidosis; I13.0 Hypertensive heart and chronic kidney disease with heart failure and stage 1 through stage 4 chronic kidney disease, or unspecified chronic kidney disease; L03.115 Cellulitis of right lower limb; Z68.41 Body mass index [BMI] 40.0-44.9, adult; I48.92 Unspecified atrial flutter; B96.1 Klebsiella pneumoniae [K. pneumoniae] as the cause of diseases classified elsewhere; B95.2 Enterococcus as the cause of diseases classified elsewhere; B96.5 Pseudomonas (aeruginosa) (mallei) (pseudomallei) as the cause of diseases classified elsewhere; D63.8 Anemia in other chronic diseases classified elsewhere; E11.22 Type 2 diabetes mellitus with diabetic chronic kidney disease; E66.01 Morbid (severe) obesity due to excess calories; E78.2 Mixed hyperlipidemia; E83.42 Hypomagnesemia; E87.8 Other disorders of electrolyte and fluid balance, not elsewhere classified; G89.4 Chronic pain syndrome; I11.0 Hypertensive heart disease with heart failure; I27.20 Pulmonary hypertension, unspecified; I25.10 Atherosclerotic heart disease of native coronary artery without angina pectoris; I48.91 Unspecified atrial fibrillation; I83.019 Varicose veins of right lower extremity with ulcer of unspecified site; M10.9 Gout, unspecified; M15.9 Polyosteoarthritis, unspecified; N18.3 Chronic kidney disease, stage 3 (moderate); Z79.01 Long term (current) use of anticoagulants; Z95.810 Presence of automatic (implantable) cardiac defibrillator
CPT/HCPCS: 36415; 51702; 71045; 76770; 80048; 80053; 80069; 80076; 80202; 81003; 81015; 82533; 82550; 82553; 82570; 82652; 82728; 82746; 82805; 82962; 83540; 83605; 83690; 83735; 83880; 83970; 84100; 84145; 84156; 84165; 84443; 84466; 84484; 85014; 85018; 85025; 85044; 85610; 85730; 86850; 86900; 86901; 87040; 87070; 87077; 87186; 87205; 93005; 93306; 94640; 94660; 94760; 96361; 96365; 96366; 96367; 96368; 96375; 99285; J0171; J0692; J1250; J1720; J1940; J2405; J3010; J3411; J7030; J7060; P9016; P9047